=== PATIENT | female | born 1950 | race Caucasian/White ===

== ENCOUNTER 2019-03-24 13:44 | Outpatient (CLI) | payer MEDICARE, SELFPAY ==
[2019-03-24 14:57] LABS: Basophils Percent Auto 0.7 % (0.2-1.2); Eosinophils Absolute Auto 0.2 K/mm3 (0-0.3); Eosinophils Percent Auto 3.6 % (0-4.4); Hematocrit 38.5 % (37.0-47.0); Immature Granulocyte Absolute 0.01 K/mm3 (0.00-0.031); Immature Granulocyte Percent A 0.2 % (0-0.5); Lymphocytes Absolute Auto 1.41 K/mm3 (0.9-3.2); Lymphocytes Percent Auto 25.5 % (18.3-44.2); Mean Corpuscular HGB Conc 33.8 g/dl (32-36); Mean Corpuscular Hemoglobin 31.1 pg (26-34); Mean Corpuscular Volume 92.1 fl (80-100); Mean Platelet Volume 8.8 fl (7.4-10.4); Monocytes Absolute Auto 0.3 K/mm3 (0.1-0.6); Monocytes Percent Auto 5.6 % (2.6-8.5); Neutrophils Absolute Auto 3.6 K/mm3 (1.3-6.7); Neutrophils Percent Auto 64.4 % (45.5-73.1); Platelet Count Result 286 k/mm3 (150-375); Red Blood Count 4.18 M/mm3 (4.2-5.4); Red Cell Distribution Width 13.4 % (11.5-14.5); White Blood Count 5.5 K/mm3 (4.5-10.0)
[2019-03-24 15:09] LABS: Alanine Aminotransferase 17 U/L (4-35); Albumin Level 4.4 g/dL (3.5-5.1); Alkaline Phosphatase 68 U/L (38-126); Aspartate Amino Transferase 27 U/L (14-36); Bilirubin,Total 0.5 mg/dL (0.2-1.3); Blood Urea Nitrogen 7 mg/dL (7-17); Calcium 10.3 mg/dL (8.4-10.2); Carbon Dioxide 22 mmol/L (22-30); Chloride 95 mmol/L (98-107); Estimated Glomerular Filt Rate > 60; Glucose 96 mg/dL (65-105); Sodium 131 mmol/L (137-145)
[2019-03-24 15:10] LABS: Cholesterol 260 mg/dL (0-200); HDL Direct 57 mg/dL; Triglycerides 168 mg/dL (<150)
[2019-03-24 15:20] LABS: LDL Cholesterol Direct 154 mg/dL
== END 2019-03-24 13:45 | disposition home or self-care (01) ==
PROVIDERS: PCP Internal Medicine; Visit Provider Nurse Practitioner
DX: I10 Essential (primary) hypertension (principal)
CPT/HCPCS: 36415; 80053; 80061; 85025

== ENCOUNTER 2019-04-17 14:38 | Outpatient (CLI) | payer MEDICARE, SELFPAY ==
--- NOTE | ~2019-04-17 | MM_ITS ---
EXAMINATION: MM screening [facility] BI w michelle HISTORY: Screening mammogram, history of left breast cancer TECHNIQUE: Craniocaudal and mediolateral oblique 3-D tomosynthesis images were obtained and synthetic 2-D images were generated. CAD analysis was submitted and interpreted. COMPARISON: 10/25/2016, 02/07/2016, 02/01/2015 BREAST PARENCHYMAL COMPOSITION: The breasts are almost entirely fatty. FINDINGS: There is stable architectural distortion in the upper outer quadrant of the left breast at the site of prior lumpectomy. There is no evidence of suspicious mass, calcification, or architectura l distortion to suggest malignancy in either breast. There has been no suspicious interval change. IMPRESSION: 1. No mammographic evidence of malignancy. 2. Recommend routine screening mammography in one year. BI-RADS Category 2: Benign finding(s). Reviewed, dictated and finalized at location A. ER MILL ROLLER
--- NOTE | ~2019-04-17 | DEXA_ITS ---
Bone Density Report Name: Francia Poon Age: 69 Sex: Female Ethnicity: White Date of : 1950 Indication: postmenopausal; prior fracture; cancer; Referring Provider: Yesi Navarro Study: Bone densitometry was performed. Exam Date: April 17, 2019 Accession number: [id number] Bone Density: Region BMD T-score Z-score Classification AP Spine (L1-L4) 0.965 -0.7 1.3 Normal Femoral Neck (Left) 0.560 -2.6 -0.9 Osteoporosis Total Hip (Left) 0.899 -0.4 1.1 Normal Total Hip Bilateral Avg 0.906 -0.3 1.2 Normal Femoral Neck (Right) 0.669 -1.6 0.1 Osteopenia Total Hip (Right) 0.913 -0.2 1.2 Normal World Health Organization criteria for BMD impression classify patients as: Normal (T-score at or above -1.0), Osteopenia (T-score between -1.0 and -2.5), or Osteoporosis (T-score at or below -2.5). 10-year Fracture Risk: FRAX not reported because: Some T-score for Spine Total or Hip Total or Femoral Neck at or below -2.5 Previous Exams: Region Exam Age BMD T-score BMD Change BMD Change Date g/cm2 vs Baseline vs Previous AP Spine(L1-L4) 04/17/2019 69 0.965 -0.7 -0.115(-10.6%) -0.115(-10.6%) 01/20/2009 59 1.080 0.3 Total Hip(Left) 04/17/2019 69 0.899 -0.4 -0.101(-10.1%) -0.101(-10.1%) 01/20/2009 59 1.000 0.5 Total Hip(Right) 04/17/2019 69 0.913 -0.2 -0.014(-1.5%)# -0.014(-1.5%)# 01/20/2009 59 0.927 -0.1 *Denotes significance at 95% confidence level, LSC for AP Spine = 0.022 g/cm2, LSC for Total Hip = 0.027 g/cm2 Clinical Information Provided by Patient: Has had a low trauma fracture Has the following medical conditions: Cancer Patient maximum height was 64 Menopause Age: 51 No regular weight bearing exercise Onset of menses at age 13 Number of children 1 Impression: The patient has established osteoporosis, based on the Left Femoral Neck T-score and the existence of a prior fracture. The patient has risk factors, including: previous fracture. No significant bone loss was observed. Discussion: HIGH RISK OF FRACTURE. BONE DENSITY IS UNDESIRABLY LOW AT ONE OR MORE SKELETAL SITES, CONSISTENT WITH POSTMENOPAUSAL OSTEOPOROSIS. This patient's lowest T-score, in a patient who has previously fractured, meets the World Health Organization's (WHO) criteria for severe osteoporosis. In untreated patients, the risk of osteoporotic fracture increases approximately two-fold for each 1.0 SD decrease in T-score. Low bone density is not the only risk factor
== END 2019-04-17 14:39 | disposition home or self-care (01) ==
LOC: ANHIMG 14:50
PROVIDERS: PCP Internal Medicine; Visit Provider Nurse Practitioner
DX: Z12.31 Encounter for screening mammogram for malignant neoplasm of breast (principal); Z78.0 Asymptomatic menopausal state; M81.0 Age-related osteoporosis without current pathological fracture; M85.851 Other specified disorders of bone density and structure, right thigh
CPT/HCPCS: 77063; 77067; 77080

== ENCOUNTER 2019-05-26 13:47 | Outpatient (CLI) | payer MEDICARE, SELFPAY ==
[2019-05-26 15:01] LABS: Blood Urea Nitrogen 11 mg/dL (7-17); Calcium 9.6 mg/dL (8.4-10.2); Carbon Dioxide 26 mmol/L (22-30); Chloride 102 mmol/L (98-107); Cholesterol 177 mg/dL (0-200); Estimated Glomerular Filt Rate > 60; Glucose 87 mg/dL (65-105); HDL Direct 55 mg/dL; Potassium 4.1 mmol/L (3.4-5.0); Sodium 137 mmol/L (137-145); Triglycerides 171 mg/dL (<150)
[2019-05-26 15:22] LABS: LDL Cholesterol Direct 83 mg/dL
[2019-05-26 16:05] LABS: Vitamin D 25 Hydroxy 22.2 ng/mL
== END 2019-05-26 13:48 | disposition home or self-care (01) ==
PROVIDERS: PCP Internal Medicine; Visit Provider Nurse Practitioner
DX: M81.0 Age-related osteoporosis without current pathological fracture (principal); E87.1 Hypo-osmolality and hyponatremia; E78.5 Hyperlipidemia, unspecified
CPT/HCPCS: 36415; 80048; 80061; 82306

== ENCOUNTER 2019-11-04 00:40 | Outpatient (CLI) | payer MEDICARE, SELFPAY ==
[2019-11-04 18:54] LABS: SARS-CoV-2 RNA PCR Negative
== END 2019-11-04 00:41 | disposition home or self-care (01) ==
LOC: ANHCOVIDDT 00:44
PROVIDERS: PCP Internal Medicine; Visit Provider Internal Medicine Gastroenterology
DX: Z01.812 Encounter for preprocedural laboratory examination (principal); Z20.828 Contact with and (suspected) exposure to other viral communicable diseases
CPT/HCPCS: 87635; C9803; U0003

== ENCOUNTER 2019-11-06 00:57 | Day surgery (SDC) | payer MEDICARE, SELFPAY ==
[2019-10-28 15:09] VITALS: BMI 43.1
[2019-11-06 07:54] VITALS: BP 130/89; PULSE 90; RESP 16; TEMP 36.6; O2SAT 97; BMI 44.4
[2019-11-06] MEDS: LACTATED RINGERS 1,000 ML 150 ML IV CONT (08:13)
--- NOTE | 2019-11-06 08:28 | PM.IMHP ---
H&P: HPI History of Present Illness Date/Time: 11/06/19 08:28 Chief complaint: GERD Narrative: Reason for visit EGD. This very pleasant lady seen in consultation request of the primary physician. Impression: Your ever pleasant lady with a history of duodenal ulcer disease and gastric ulcer disease. She has had persistent abdominal pain. Recurrent ulcer disease needs to be excluded. For past medical history. Recommendation: EGD. History: This very pleasant lady's being evaluated for an EGD. Patient has a history of gastric ulcer and duodenal ulcer disease. She continues this upper abdominal pain. She describes hurting type pain. No radiation of the pain occurs. The pain is unaffected by eating or defecation. Nausea, vomiting and hematemesis are denied. She denies any hematochezia, melena or acholic stools. She does report occasional constipation and takes laxatives once every other week. Patient is here for an EGD. She does admit to taking a headache medication with aspirin at at least every other day. Physical examination: General: very pleasant patient in no acute distress. HEENT: Head was normocephalic sclerae is clear mouth without masses neck was supple. Heart: Rate rhythm regular without S3 or S4. Lungs: CTA. Abdomen: Soft with no guarding or rigidity. Bowel sounds were active. Neurologic: Cranial nerves 2 through 12 intact. No focal defects. No clonus. Musculoskeletal system: Revealed no joint tenderness or swelling no muscle atrophy. Extremities: Reveal no significant edema. Skin: Warm and dry with normal turgor. Mental status: intact. Patient is alert and oriented. Review of Systems Review of Systems: All systems reviewed & are unremarkable except as noted in HPI and below [facility] Past Medical History Medical History (Updated 11/06/19 @ 08:17 by Vikash Fisher DO) Breast cancer Cataract Chicken pox Depression with anxiety Duodenal ulcer Gastric ulcer Herniated disc HLD (hyperlipidemia) Lymphedema Measles Neuropathy Obesity Osteoarthritis Tendonitis Surgical History Surgical History (Updated 03/31/19 @ 14:33 by Cayla Santana CMA) H/O adenoidectomy History of salpingo-oophorectomy Hx of cholecystectomy Hx of lumpectomy lt breast and lymph nodes Hx of tonsillectomy Family History Family History (Updated 03/31/19 @ 10:59 by Cayla N. Deien, BAND LINING BANDER) Father Acute myocardial infarction Sibling Patient's brother is in good health Sibling Breast cancer Mother Myocardial infarction Other Family history of hypercholesterolemia Social History Social History Smoking status: Never smoker Alcohol intake: never Meds Home Medications and Allergies Home Medications Medication Instructions Recorded Confirmed Type omeprazole 40 mg capsule,delayed 40 mg PO DAILY 03/31/19 10/28/19 History release alendronate 70 mg tablet 70 mg PO WEEKLY #12 tablet 04/30/19 10/28/19 Rx atorvastatin 20 mg tablet 20 mg PO DAILY #90 tablet 08/25/19 10/28/19 Rx fexofenadine 180 mg tablet 180 mg PO DAILY 08/25/19 10/28/19 History fluticasone propionate 50 2 spray NASAL BID ml 08/25/19 10/28/19 History mcg/actuation nasal spray,suspension sucralfate 1 gram tablet 1 gm PO TID #90 tablet 08/27/19 10/28/19 Rx alprazolam 1 mg PO TID 10/28/19 10/28/19 History cholecalciferol (vitamin D3) 50 mcg PO DAILY 10/28/19 10/28/19 History [Vitamin D3] duloxetine 60 mg PO DAILY 10/28/19 10/28/19 History lisinopril 40 mg PO DAILY 10/28/19 10/28/19 History quetiapine 200 mg PO HS 10/28/19 10/28/19 History trazodone 300 mg PO HS 10/28/19 10/28/19 History gabapentin 300 mg capsule 600 mg PO TID #180 cap 11/04/19 Rx Allergies Allergy/AdvReac Type Severity Reaction Status Date / Time latex Allergy Unknown Other Verified 11/06/19 07:52 midazolam Allergy Unknown Swelling Verified 11/06/19 07:52 of the Eye Vital Signs Vital Signs - 24 hr 11/06/19
--- NOTE | 2019-11-06 08:42 | WPDANESEPPF ---
Anes - Initial Pre Proc Eval Procedure: Operation Date: 11/06/19 08:30 Proposed Procedures p Esophagogastroduodenoscopy - Vikash Fisher DO Date/Time: 11/06/19 08:42 Surgeon: Vikash Fisher DO Pre Op Diagnosis: GERD Patient Data Age: 69 Gender: F Height: 5 ft 4 in Weight: 117.5 kg Last Vital Signs Temp 97.9 F 11/06/19 07:54 Pulse 90 11/06/19 07:54 Resp 16 11/06/19 07:54 BP 130/89 11/06/19 07:54 Pulse Ox 97 11/06/19 07:54 Allergies Allergy/AdvReac Type Severity Reaction Status Date / Time latex Allergy Unknown Other Verified 11/06/19 07:52 midazolam Allergy Unknown Swelling Verified 11/06/19 07:52 of the Eye Home Medications Medication Instructions Recorded Confirmed Type omeprazole 40 mg capsule,delayed 40 mg PO DAILY 03/31/19 10/28/19 History release alendronate 70 mg tablet 70 mg PO WEEKLY #12 tablet 04/30/19 10/28/19 Rx atorvastatin 20 mg tablet 20 mg PO DAILY #90 tablet 08/25/19 10/28/19 Rx fexofenadine 180 mg tablet 180 mg PO DAILY 08/25/19 10/28/19 History fluticasone propionate 50 2 spray NASAL BID ml 08/25/19 10/28/19 History mcg/actuation nasal spray,suspension sucralfate 1 gram tablet 1 gm PO TID #90 tablet 08/27/19 10/28/19 Rx alprazolam 1 mg PO TID 10/28/19 10/28/19 History cholecalciferol (vitamin D3) 50 mcg PO DAILY 10/28/19 10/28/19 History [Vitamin D3] duloxetine 60 mg PO DAILY 10/28/19 10/28/19 History lisinopril 40 mg PO DAILY 10/28/19 10/28/19 History quetiapine 200 mg PO HS 10/28/19 10/28/19 History trazodone 300 mg PO HS 10/28/19 10/28/19 History gabapentin 300 mg capsule 600 mg PO TID #180 cap 11/04/19 Rx Patient hx anesthesia problems: none Family hx anesthesia problems: none PMFSH Past Medical History Medical History (Updated 11/06/19 @ 08:17 by Vikash Fisher DO) Breast cancer Cataract Chicken pox Depression with anxiety Duodenal ulcer Gastric ulcer Herniated disc HLD (hyperlipidemia) Lymphedema Measles Neuropathy Obesity Osteoarthritis Tendonitis Surgical History Surgical History (Updated 03/31/19 @ 14:33 by Cayla Santana [facility]) H/O adenoidectomy History of salpingo-oophorectomy Hx of cholecystectomy Hx of lumpectomy lt breast and lymph nodes Hx of tonsillectomy Family History Family History (Updated 03/31/19 @ 10:59 by Cayla Santana [facility]) Father Acute myocardial infarction Sibling Patient's brother is in good health Sibling Breast cancer Mother Myocardial infarction Other Family history of hypercholesterolemia Social History Social History Smoking status: Never smoker Alcohol intake: never Anes - Eval Final PreProcedure Day of Procedure 11/06/19 08:42 Patient weight: morbidly obese Heart: regular rate and rhythm Lungs: clear to auscultation Airway: Mallampati scale class III Neurological: alert and oriented Last oral intake: >/= 8 hours ASA classification: IV Emergent: no Anesthetic plan: proceed Anesthesia type and monitoring: general GIVS and standard monitoring Informed Consent: The patient's anesthetic plan and its attendant risks and benefits were discussed with the patient/family/POA. Questions were solicited and answers provided to the satisfaction of the patient/family/POA.
[2019-11-06] MEDS: BENZOCAINE (*SP) 60 ML SPRAY CAN (HURRICAINE) 1 SPRAY MUCOUS MEM (08:50)
[2019-11-06 09:04] VITALS: BP 101/56; PULSE 92; RESP 16; O2SAT 95
[2019-11-06 09:14] VITALS: BP 81/46; PULSE 80; RESP 16; O2SAT 98
[2019-11-06 09:24] VITALS: BP 105/50; PULSE 88; RESP 16; O2SAT 96
== END 2019-11-06 09:36 | disposition home or self-care (01) ==
PROVIDERS: PCP Internal Medicine; Visit Provider Internal Medicine Gastroenterology
PROC: 0DJ08ZZ Inspection of Upper Intestinal Tract, Via Natural or Artificial Opening Endoscopic (ICD-10-PCS; CPT 43235; principal; 2019-11-06 08:30)
DX: K29.50 Unspecified chronic gastritis without bleeding (principal); Z87.11 Personal history of peptic ulcer disease; E78.5 Hyperlipidemia, unspecified; G62.9 Polyneuropathy, unspecified; F41.8 Other specified anxiety disorders; E66.01 Morbid (severe) obesity due to excess calories; Z68.41 Body mass index [BMI] 40.0-44.9, adult
CPT/HCPCS: 43239; 87081; 88305; J2704; J7120

== ENCOUNTER 2019-11-19 14:42 | Outpatient (CLI) | payer MEDICARE, SELFPAY ==
[2019-11-19 15:53] LABS: Cholesterol 169 mg/dL (0-200); HDL Direct 52 mg/dL; Triglycerides 148 mg/dL (<150)
[2019-11-19 16:04] LABS: LDL Cholesterol Direct 83 mg/dL
[2019-11-19 16:48] LABS: Vitamin D 25 Hydroxy 32.9 ng/mL
== END 2019-11-19 14:43 | disposition home or self-care (01) ==
PROVIDERS: PCP Internal Medicine; Visit Provider Clinical Nurse Specialist
DX: E78.5 Hyperlipidemia, unspecified (principal); E55.9 Vitamin D deficiency, unspecified
CPT/HCPCS: 36415; 80061; 82306

== ENCOUNTER 2019-12-01 14:38 | Outpatient (CLI) | payer MEDICARE, SELFPAY ==
--- NOTE | ~2019-12-01 | CT_ITS ---
EXAMINATION: CT abdomen pelvis w con DATE: 12/01/2019 15:35 INDICATION: Epigastric abdominal pain. TECHNIQUE: Computed tomography (CT) of the abdomen and pelvis was performed with 100 mL Omnipaque 350 intravenous contrast. Automated exposure control and iterative reconstruction technique were employe d. The dose-length product was 1493.11 mGy-cm. COMPARISON: CT abdomen and pelvis 01/21/2018 FINDINGS: The visualized portions of the lung bases demonstrate minimal atelectasis. No pleural effus ion. The heart size is normal. No pericardial effusion. There is a small sliding hiatal hernia. The l iver and spleen are normal. There are changes of cholecystectomy. The pancreas, adrenal glands, and k idneys are normal. There are no dilated loops of bowel. The appendix is not visualized. There are no pathologically enlarged lymph nodes. There is no free intraperitoneal fluid. Pelvic floor relaxation is noted. There is moderate thoracic spondylosis and mild lumbar spondylosis. IMPRESSION: 1. Small sliding hiatal hernia. 2. Pelvic floor relaxation. Reviewed, dictated and finalized at location A.
[2019-12-01 15:22] LABS: Estimated Glomerular Filt Rate 49
== END 2019-12-01 14:39 | disposition home or self-care (01) ==
PROVIDERS: PCP Internal Medicine; Visit Provider Internal Medicine Gastroenterology
DX: R10.13 Epigastric pain (principal); K44.9 Diaphragmatic hernia without obstruction or gangrene; N81.89 Other female genital prolapse
CPT/HCPCS: 74177; Q9967

== ENCOUNTER 2020-01-15 13:12 | Outpatient (CLI) | payer MEDICARE, SELFPAY ==
--- NOTE | ~2020-01-15 | MM_ITS ---
EXAMINATION: MM diagnostic griselda LT w michelle HISTORY: Pain of the inner left breast, history of breast cancer and lumpectomy in the upper outer qu adrant of the breast TECHNIQUE: Craniocaudal, mediolateral, and mediolateral oblique 3-D tomosynthesis images of the left breast were performed and synthetic 2-D images were generated. CAD analysis was submitted and interpr eted. COMPARISON: 04/17/2019,02/07/2016, 02/01/2015, 03/03/2014, 02/18/2013 BREAST PARENCHYMAL COMPOSITION: The breasts are almost entirely fatty. FINDINGS: There are stable lumpectomy changes in the upper outer quadrant of the breast. No suspiciou s mass, calcification, or architectural distortion are identified. There has been no significant inte rval change. No mammographic correlate is identified for the patient's reported medial breast pain. IMPRESSION: 1. No specific mammographic correlate is identified for the patient's reported breast pain. Further e valuation at this time should be based on clinical assessment. Continued follow-up physical examinati on is recommended. 2. Routine screening mammography is recommended. BI-RADS Category 2: Benign finding(s). Reviewed, dictated and finalized at location A. IMPRESSION: 1. No specific mammographic correlate is identified for the patient's reported breast pain. Further evaluation at this time should be based on clinical assess ment. Continued follow-up physical examination is recommended. 2. Routine screening mammography is recommended. BI-RADS Category 2: Benign finding(s).
== END 2020-01-15 13:13 | disposition home or self-care (01) ==
LOC: ANHIMG 13:14
PROVIDERS: PCP Internal Medicine; Visit Provider Obstetrics & Gynecology
DX: N64.4 Mastodynia (principal); Z85.3 Personal history of malignant neoplasm of breast
CPT/HCPCS: 77061; 77065; G0279

== ENCOUNTER 2020-05-06 14:09 | Outpatient (CLI) | payer MEDICARE, SELFPAY ==
[2020-05-06 14:50] LABS: Basophils Absolute Auto 0.1 K/mm3 (0.0-0.1); Basophils Percent Auto 0.8 % (0.2-1.2); Eosinophils Absolute Auto 0.3 K/mm3 (0-0.3); Eosinophils Percent Auto 4.1 % (0-4.4); Hematocrit 36.4 % (37.0-47.0); Hemoglobin 11.8 g/dL (12.0-15.0); Immature Granulocyte Absolute 0.02 K/mm3 (0.00-0.031); Immature Granulocyte Percent A 0.3 % (0-0.5); Lymphocytes Absolute Auto 2.22 K/mm3 (0.9-3.2); Lymphocytes Percent Auto 33.8 % (18.3-44.2); Mean Corpuscular HGB Conc 32.4 g/dl (32-36); Mean Corpuscular Hemoglobin 29.9 pg (26-34); Mean Corpuscular Volume 92.2 fl (80-100); Mean Platelet Volume 8.7 fl (7.4-10.4); Monocytes Absolute Auto 0.4 K/mm3 (0.1-0.6); Monocytes Percent Auto 6.1 % (2.6-8.5); Neutrophils Absolute Auto 3.6 K/mm3 (1.3-6.7); Neutrophils Percent Auto 54.9 % (45.5-73.1); Platelet Count Result 269 k/mm3 (150-375); Red Blood Count 3.95 M/mm3 (4.2-5.4); Red Cell Distribution Width 13.9 % (11.5-14.5); White Blood Count 6.6 K/mm3 (4.5-10.0)
[2020-05-06 14:56] LABS: Alanine Aminotransferase 18 U/L (4-35); Alkaline Phosphatase 78 U/L (38-126); Anion Gap 8 mmol/L (8-16); Aspartate Amino Transferase 25 U/L (14-36); Bilirubin,Total 0.2 mg/dL (0.2-1.3); Blood Urea Nitrogen 13 mg/dL (7-17); Calcium 9.7 mg/dL (8.4-10.2); Carbon Dioxide 29 mmol/L (22-30); Chloride 103 mmol/L (98-107); Estimated Glomerular Filt Rate 44; Glucose 108 mg/dL (65-105); Potassium 4.3 mmol/L (3.4-5.0); Sodium 140 mmol/L (137-145)
== END 2020-05-06 14:10 | disposition home or self-care (01) ==
LOC: ANHLAB 14:11
PROVIDERS: PCP Internal Medicine; Visit Provider Clinical Nurse Specialist
DX: I10 Essential (primary) hypertension (principal)
CPT/HCPCS: 36415; 80053; 85025

== ENCOUNTER 2020-09-30 13:14 | Emergency (ER) | payer MEDICARE, SELFPAY ==
[2020-09-30 13:22] VITALS: BP 149/94; PULSE 110; RESP 16; TEMP 36.2; O2SAT 96
[2020-09-30 13:28] VITALS: BP 149/94; PULSE 110; RESP 16; TEMP 36.2; O2SAT 96
--- NOTE | 2020-09-30 13:41 | ED.GENADULT ---
HPI - General Adult General Chief complaint: Wound/Laceration Stated complaint: rt foot big toe laceration Time Seen by Provider: 09/30/20 13:30 Source: patient and RN notes reviewed Mode of arrival: ambulatory Limitations: no limitations History of Present Illness HPI narrative: HPI narrative: 70-year-old female present with complaints of laceration to the right great toe, caused by hitting toe on vanity in bathroom for the past 7 hours. Francia reports being in the bathroom when she hit her toe against the vanity causing laceration to the right great toe. Applied pressure to the right great toe once the spouse noted bleeding. Denies focal weakness, altered sensation. Denies fever. Denies pain, numbness or tingling, or loss of mobility. No foreign body sensation. Tetanus not up-to-date, will update today. Remains active. The patient reports she has not been diagnosed with COVID-19. The patient reports she received 2 Pfizer COVID-19 vaccines. The patient reports she is not waiting for the results of a COVID-19 lab test. The patient reports she does not have fever, chills, weakness, fatigue, or myalgia. The patient reports she does not have a new or worsening cough or shortness of breath. The patient reports she does not have any rhinorrhea, congestion, loss of taste, sore throat, nausea, vomiting, abdominal pain, and diarrhea. Denies recent traveling. Denies concerns for COVID-19 or exposures. At this time, the patient is not suspected of having COVID-19. Some parts of this dictation were generated by voice recognition software and may contain typographical and/or grammatical inaccuracies Related Data Home Medications Medication Instructions Recorded Confirmed omeprazole 40 mg capsule,delayed 40 mg PO DAILY 03/31/19 09/30/20 release fexofenadine 180 mg tablet 180 mg PO DAILY 08/25/19 09/30/20 fluticasone propionate 50 2 spray NASAL BID ml 08/25/19 09/30/20 mcg/actuation nasal spray,suspension alprazolam 1 mg PO TID 10/28/19 09/30/20 cholecalciferol (vitamin D3) 50 mcg PO DAILY 10/28/19 09/30/20 [Vitamin D3] duloxetine 60 mg PO DAILY 10/28/19 09/30/20 trazodone 300 mg PO HS 10/28/19 09/30/20 mirabegron 50 mg tablet,extended 50 mg PO DAILY 03/26/20 09/30/20 release 24 hr quetiapine 200 mg tablet 400 mg PO HS tablet 03/26/20 09/30/20 oxybutynin chloride 5 mg tablet 5 mg PO BID 05/13/20 09/30/20 Allergies Allergy/AdvReac Type Severity Reaction Status Date / Time midazolam Allergy Unknown Swelling Verified 09/30/20 13:24 of the Eye Review of Systems Review of Systems: Narrative: CONSTITUTIONAL: Denies fever, chills, sweats. EYES: Denies visual changes, redness, discharge. ENT: Denies rhinorrhea, congestion, sore throat, otalgia. CARDIOVASCULAR: Denies chest pain, palpitations, edema. RESPIRATORY: Denies dyspnea, wheezing, cough. GASTROINTESTINAL: Denies abdominal pain, nausea, vomiting, or diarrhea. SKIN: Denies rash or itching. Complaints of laceration to the right great toe. MUSCULOSKELETAL: Denies acute back pain, joint pain, or myalgia. NEUROLOGIC: Denies numbness or focal weakness. PSYCHIATRIC: Denies anxiety or depression. All systems reviewed & are unremarkable except as noted in HPI and below. [facility] Past Medical History Medical History (Updated 10/01/20 @ 00:00 by Khadar Brooke) Breast cancer Cataract Chicken pox Depression with anxiety Duodenal ulcer Gastric ulcer Herniated disc HLD (hyperlipidemia) Lymphedema Measles Neuropathy Obesity Osteoarthritis Tendonitis Surgical History Surgical History H/O adenoidectomy History of salpingo-oophorectomy Hx of cholecystectomy Hx of lumpectomy lt breast and lymph nodes Hx of tonsillectomy Family History Family History Father Acute myocardial infarction Sibling Patient's brother is in good health
[2020-09-30 14:03] VITALS: BP 152/85; PULSE 109
[2020-09-30] MEDS: TETANUS,DIPHTHERIA,AC PERTUSSIS ADULT (0.5 ML) BOOSTRIX IM (14:28)
== END 2020-09-30 14:50 | disposition home or self-care (01) ==
PROVIDERS: Emergency Provider Nurse Practitioner Family; PCP Internal Medicine
DX: S91.111A Laceration without foreign body of right great toe without damage to nail, initial encounter (principal); W22.8XXA Striking against or struck by other objects, initial encounter; Z23 Encounter for immunization; Z85.3 Personal history of malignant neoplasm of breast; E78.5 Hyperlipidemia, unspecified; G62.9 Polyneuropathy, unspecified; M19.90 Unspecified osteoarthritis, unspecified site; H26.9 Unspecified cataract; F41.8 Other specified anxiety disorders
CPT/HCPCS: 90471; 90715; 99212; G0463

== ENCOUNTER 2020-11-05 12:50 | Outpatient (CLI) | payer MEDICARE, SELFPAY ==
--- NOTE | ~2020-11-05 | MR_ITS ---
EXAMINATION: MR brain/brain stem wo/w con DATE: 11/05/2020 14:29 INDICATION: Migraine headache without aura, not intractable, without status migrainosus. TECHNIQUE: Magnetic resonance imaging (MRI) of the brain and brainstem was performed without and with 20 mL MultiHance intravenous contrast. Sequences included sagittal and axial T1-weighted FSE, axial diffusion-weighted FS EPI, axial T2*-weighted GRE, axial T2-weighted FLAIR Propeller, and axial T2-we ighted Propeller. Postcontrast sequences included axial and coronal T1-weighted FSE. Apparent diffusi on coefficient (ADC) maps were created. COMPARISON: None. FINDINGS: There are scattered areas of nonspecific increased T2-weighted signal intensity in the cere bral white matter, which is within normal limits for the patient's age. There is no intracranial hemo rrhage, acute infarction, or abnormal intracranial mass lesion. The ventricles are normal in size. Th e paranasal sinuses are clear. There are likely changes of ocular lens replacement surgeries. There i s a trace left mastoid effusion. IMPRESSION: 1. Normal aging brain. Reviewed, dictated and finalized at location B. IMPRESSION: 1. Normal aging brain.
[2020-11-05 14:00] LABS: Estimated Glomerular Filt Rate 49
== END 2020-11-05 12:51 | disposition home or self-care (01) ==
PROVIDERS: PCP Internal Medicine; Visit Provider Clinical Nurse Specialist
DX: G43.009 Migraine without aura, not intractable, without status migrainosus (principal)
CPT/HCPCS: 70553; A9577

== ENCOUNTER 2020-11-24 11:28 | Outpatient (CLI) | payer MEDICARE, SELFPAY ==
[2020-11-24 11:59] LABS: Basophils Percent Auto 0.7 % (0.2-1.2); Eosinophils Absolute Auto 0.2 K/mm3 (0-0.3); Eosinophils Percent Auto 3.6 % (0-4.4); Hematocrit 38.9 % (37.0-47.0); Hemoglobin 12.5 g/dL (12.0-15.0); Immature Granulocyte Absolute 0.02 K/mm3 (0.00-0.031); Immature Granulocyte Percent A 0.3 % (0-0.5); Lymphocytes Absolute Auto 1.62 K/mm3 (0.9-3.2); Lymphocytes Percent Auto 26.8 % (18.3-44.2); Mean Corpuscular HGB Conc 32.1 g/dl (32-36); Mean Corpuscular Hemoglobin 30.4 pg (26-34); Mean Corpuscular Volume 94.6 fl (80-100); Mean Platelet Volume 8.7 fl (7.4-10.4); Monocytes Absolute Auto 0.3 K/mm3 (0.1-0.6); Monocytes Percent Auto 5.3 % (2.6-8.5); Neutrophils Absolute Auto 3.8 K/mm3 (1.3-6.7); Neutrophils Percent Auto 63.3 % (45.5-73.1); Platelet Count Result 281 k/mm3 (150-375); Red Blood Count 4.11 M/mm3 (4.2-5.4); Red Cell Distribution Width 13.9 % (11.5-14.5); White Blood Count 6.1 K/mm3 (4.5-10.0)
[2020-11-24 12:12] LABS: Alanine Aminotransferase 17 U/L (4-35); Albumin Level 4.4 g/dL (3.5-5.1); Alkaline Phosphatase 75 U/L (38-126); Anion Gap 9 mmol/L (8-16); Aspartate Amino Transferase 26 U/L (14-36); Bilirubin,Total 0.3 mg/dL (0.2-1.3); Blood Urea Nitrogen 12 mg/dL (7-17); Calcium 10.1 mg/dL (8.4-10.2); Carbon Dioxide 25 mmol/L (22-30); Chloride 104 mmol/L (98-107); Cholesterol 177 mg/dL (0-200); Estimated Glomerular Filt Rate 49; Glucose 104 mg/dL (65-110); HDL Direct 55 mg/dL; Potassium 4.3 mmol/L (3.4-5.0); Sodium 138 mmol/L (137-145); Triglycerides 143 mg/dL (<150)
[2020-11-24 12:23] LABS: LDL Cholesterol Direct 77 mg/dL
== END 2020-11-24 11:29 | disposition home or self-care (01) ==
LOC: ANHLAB 11:29
PROVIDERS: PCP Internal Medicine; Visit Provider Clinical Nurse Specialist
DX: I10 Essential (primary) hypertension (principal); E78.2 Mixed hyperlipidemia
CPT/HCPCS: 36415; 80053; 80061; 85025

== ENCOUNTER 2021-01-18 14:23 | Outpatient (CLI) | payer MEDICARE, SELFPAY ==
--- NOTE | ~2021-01-18 | MM_ITS ---
EXAMINATION: MM screening griselda BI w michelle HISTORY: Screening TECHNIQUE: Craniocaudal and mediolateral oblique 3-D tomosynthesis images were obtained and synthetic 2-D images were generated. CAD analysis was submitted and interpreted. COMPARISON: Comparison to multiple prior studies sequentially, with oldest reviewed study dated 01/18. BREAST PARENCHYMAL COMPOSITION: FINDINGS: There is developing asymmetry in the upper outer quadrant of the right breast. The left nahomy ast is stable without evidence for malignancy. IMPRESSION: 1. Developing right breast asymmetry. 2. Additional mammographic views and possible breast ultrasound are recommended. BI-RADS Category 0: Incomplete: Needs additional imaging evaluation. Reviewed, dictated and finalized at location A. IMPRESSION: 1. Developing right breast asymmetry. 2. Additional mammographic views and possible breast ultrasound are recommended . BI-RADS Category 0: Incomplete: Needs additional imaging evaluation.
== END 2021-01-18 14:24 | disposition home or self-care (01) ==
PROVIDERS: PCP Internal Medicine; Visit Provider Obstetrics & Gynecology
DX: Z12.31 Encounter for screening mammogram for malignant neoplasm of breast (principal); R92.8 Other abnormal and inconclusive findings on diagnostic imaging of breast
CPT/HCPCS: 77063; 77067

== ENCOUNTER 2021-02-12 12:36 | Outpatient (CLI) | payer MEDICARE, SELFPAY ==
--- NOTE | ~2021-02-12 | MR_ITS ---
EXAMINATION: MR lumbar spine wo con EXAM DATE: 02/12/2021 13:43 INDICATION: Lumbar radiculopathy . Chronic low back pain. Bilateral leg numbness. TECHNIQUE: Multi-sequential, multiplanar MR images of the lumbar spine were obtained without contrast . Sagittal T1, T2, T2 fat saturation images. Axial T2 weighted images. Comparison is made to prior examination from 06/04/2018. FINDINGS: There is 3 mm anterolisthesis L4 on L5. The vertebral bodies are otherwise aligned. The con us medullaris terminates at the L1/2 level and has normal signal intensity and morphology. There is moderate disc disease L3-4, mild to moderate at the levels below. There is mild compression fracture of L4, new or progressed compared to previous examination, may have an acute or subacute component gi nick mild edema. Paraspinal soft tissue is unremarkable. Level by level evaluation: T12-L1: Disc does not extend beyond the endplate margin. Facet arthropathy: Mild. Neural foraminal stenosis: No stenosis. Central canal stenosis: No stenosis. L1-L2: There is a minimal diffuse disc bulge. Facet arthropathy: Mild. Neural foraminal stenosis: No stenosis. Central canal stenosis: No stenosis. L2-L3: There is a minimal diffuse disc bulge. Facet arthropathy: Mild. Neural foraminal stenosis: No stenosis. Central canal stenosis: No stenosis. L3-L4: There is a mild diffuse disc bulge. Facet arthropathy: Mild to moderate. Neural foraminal stenosis: Mild to moderate left, mild right. Central canal stenosis: Mild. L4-L5: There is a moderate diffuse disc bulge. Facet arthropathy: Severe. Neural foraminal stenosis: Mild to moderate left, mild right. Central canal stenosis: Mild. L5-S1: There is a mild to moderate diffuse disc bulge asymmetric to the left Facet arthropathy: Moderate. Neural foraminal stenosis: Mild right. Central canal stenosis: Mild. IMPRESSION: 1. L4-5 severe facet arthropathy. 2. Mild to moderate mid lumbar neural foraminal stenosis. Reviewed, dictated and finalized at location A. ENING SPECIALIST
== END 2021-02-12 12:37 | disposition home or self-care (01) ==
PROVIDERS: PCP Internal Medicine; Visit Provider Nurse Practitioner Adult Health
DX: M54.16 Radiculopathy, lumbar region (principal)
CPT/HCPCS: 72148

== ENCOUNTER 2021-02-24 13:24 | Outpatient (CLI) | payer MEDICARE, SELFPAY ==
--- NOTE | ~2021-02-24 | MMUS_ITS ---
EXAMINATION: MM diagnostic griselda RT w michelle, US breast RT limited HISTORY: Follow-up right breast asymmetry TECHNIQUE: Additional 3-D tomosynthesis images of the right breast were performed and synthetic 2-D i mages were generated. CAD analysis was submitted and interpreted. High resolution Limited right breas t ultrasound was performed. COMPARISON: Comparison to multiple prior studies sequentially, with oldest reviewed study dated 03/2014. BREAST PARENCHYMAL COMPOSITION: Breast composed of scattered areas of fibroglandular density. FINDINGS: MAMMOGRAPHIC FINDINGS: The area of asymmetry in the mid lateral aspect of the right breast anteriorly is less prominent with spot compression view, likely superimposed fibroglandular tissues. There are multiple benign-appeari ng circular calcifications. This may represent an area of fat necrosis from previous biopsy. ULTRASOUND: Limited right breast ultrasound: At 9:00, 1 cm from the nipple, there is a small 4 mm complicated cys t. At 10:00, 2 cm from the nipple, there is an oval circumscribed anechoic mass with posterior shadow ing, parallel orientation and no internal vascularity, likely benign. IMPRESSION: 1. Probable benign findings of the right breast. 2. Recommend 6 month follow-up diagnostic right mammogram and ultrasound BI-RADS category 3, probably benign findings. Reviewed, dictated and finalized at location A. UIT HELPER IMPRESSION: 1. Probable benign findings of the right breast. 2. Recommend 6 month follow-up diagnostic right mammogram and ultrasound BI-RADS category 3, probably benign findings.
== END 2021-02-24 13:25 | disposition home or self-care (01) ==
LOC: ANHIMG 13:26
PROVIDERS: PCP Internal Medicine; Visit Provider Obstetrics & Gynecology
DX: R92.8 Other abnormal and inconclusive findings on diagnostic imaging of breast (principal)
CPT/HCPCS: 76642; 77061; 77065; G0279

== ENCOUNTER 2021-06-09 11:03 | Outpatient (CLI) | payer MEDICARE, SELFPAY ==
--- NOTE | ~2021-06-09 | XR_ITS ---
XR knee RT 3V 06/09/2021 11:51 Indication: Right knee pain Procedure: 3 views right knee Comparison: No prior studies for comparison. Findings: There is mild osteoarthritis of the right knee. No fracture, subluxation or dislocation. No significant joint effusion. No foreign bodies. Impression: 1: Mild osteoarthritis of the right knee. Reviewed, dictated and finalized at location A. Impression: 1: Mild osteoarthritis of the right knee.
--- NOTE | ~2021-06-09 | XR_ITS ---
XR knee LT 3V 06/09/2021 11:51 Indication: Left knee pain Procedure: 3 views left knee Comparison: No prior studies for comparison. Findings: There is mild tricompartment osteoarthritis of the left knee. No fracture, subluxation or d islocation. No soft tissue abnormality. No joint effusion. Impression: 1: Mild osteoarthritis of the left knee. Reviewed, dictated and finalized at location A. Impression: 1: Mild osteoarthritis of the left knee.
--- NOTE | ~2021-06-09 | XR_ITS ---
EXAMINATION: XR hip LT min 2V INDICATION: Left hip pain TECHNIQUE: Two views of the left hip are obtained. COMPARISON: None available FINDINGS: Bone alignment is normal. There is no fracture. There is mild osteoarthritis. The soft tiss ues are unremarkable. IMPRESSION: 1. No acute osseous abnormality. Reviewed, dictated and finalized at location B.
== END 2021-06-09 11:04 | disposition home or self-care (01) ==
LOC: ANHIMG 11:11
PROVIDERS: PCP Internal Medicine; Visit Provider Clinical Nurse Specialist
DX: M25.559 Pain in unspecified hip (principal); M17.0 Bilateral primary osteoarthritis of knee
CPT/HCPCS: 73502; 73562

== ENCOUNTER 2021-10-07 17:57 | Emergency (ER) | payer MEDICARE, SELFPAY ==
--- NOTE | ~2021-10-07 | XR_ITS ---
EXAMINATION: XR lumbar spine 2-3V DATE: 10/07/2021 18:29 INDICATION: Low back pain. TECHNIQUE: 3 views of lumbar spine were obtained. COMPARISON: Lumbar spine radiographs 06/04/2018, CT abdomen and pelvis 12/01/2019 FINDINGS: There is 7 degrees dextrocurvature of lumbar spine. There is 4 mm anterolisthesis of L4 on L5. Vertebral body heights are normal. There is mildly decreased disc height at L3-L4, moderately dec reased disc height at L4-L5, and mildly decreased disc height at L5-S1. There are endplate osteophyte s at most levels. There is severe facet joint osteoarthritis in lower lumbar spine. IMPRESSION: 1. Moderate lumbar spondylosis. Reviewed, dictated and finalized at location A.
[2021-10-07 18:06] VITALS: BP 152/129; PULSE 86; O2SAT 95
--- NOTE | 2021-10-07 18:15 | ED.BACK ---
HPI - Back Pain/Injury General Chief Complaint: Back Pain/Injury Stated Complaint: back pain Time Seen by Provider: 10/07/21 18:07 History of Present Illness HPI Narrative: 71-year-old female presents the emergency room with acute on chronic low back pain. States she has been having back pain for several months, is worse with certain movements. States today the pain worsened, began to radiate around both flanks. Denies any known injury or trauma. States pain is worse with movement of her lower back, ambulate. Denies any paresthesia. Denies any bowel or bladder loss of function. Denies saddle anesthesia. States his taking Excedrin migraine headache for her pain, reporting it has not relieved her symptoms. Related Data Home Medications Medication Instructions Recorded Confirmed omeprazole 40 mg capsule,delayed 40 mg PO DAILY 03/31/19 06/02/21 release fexofenadine 180 mg tablet 180 mg PO DAILY 08/25/19 06/02/21 (Leda Allergy) fluticasone propionate 50 2 spray intranasal BID 08/25/19 06/02/21 mcg/actuation nasal spray,suspension alprazolam 1 mg tablet 1 mg PO TID 10/28/19 06/02/21 cholecalciferol (vitamin D3) 50 50 mcg PO DAILY 10/28/19 06/02/21 mcg (2,000 unit) capsule (Vitamin D3) duloxetine 60 mg capsule,delayed 60 mg PO DAILY 10/28/19 06/02/21 release trazodone 150 mg tablet 300 mg PO HS 10/28/19 06/02/21 quetiapine 200 mg tablet 400 mg PO HS 03/26/20 06/02/21 oxybutynin chloride 5 mg tablet 5 mg PO BID 05/13/20 06/02/21 sucralfate 1 gram tablet PO 01/05/21 06/02/21 Allergies Allergy/AdvReac Type Severity Reaction Status Date / Time midazolam Allergy Unknown Swelling Verified 01/05/21 14:07 of the Eye Review of Systems Review of Systems: CONSTITUTIONAL: Denies fever, chills, or sweats. EYES: Denies visual changes, redness, or discharge. ENT: Denies rhinorrhea, congestion, sore throat, or otalgia. CARDIOVASCULAR: Denies chest pain, palpitations, or edema. RESPIRATORY: Denies cough or dyspnea. GASTROINTESTINAL: Denies abdominal pain, nausea, vomiting, or diarrhea. GENITOURINARY: Denies dysuria or hematuria. SKIN: Denies rash or itching. MUSCULOSKELETAL: Reports low back pain NEUROLOGIC: Denies headache, numbness, dizziness, or weakness. PSYCHIATRIC: Denies anxiety or depression. [facility] Past Medical History Medical History Breast cancer Cataract Chicken pox Depression with anxiety Duodenal ulcer Essential hypertension Gastric ulcer Herniated disc HLD (hyperlipidemia) Lymphedema Measles Neuropathy Obesity Osteoarthritis Tendonitis Surgical History Surgical History H/O adenoidectomy History of salpingo-oophorectomy Hx of cholecystectomy Hx of lumpectomy lt breast and lymph nodes Hx of tonsillectomy Family History Family History Father Acute myocardial infarction Sibling Patient's brother is in good health Sibling Breast cancer Mother Myocardial infarction Other Family history of hypercholesterolemia Social History Social History Smoking status: Never smoker Tobacco type: cigarettes Second hand tobacco smoke exposure: No Alcohol intake: former Alcohol use details: none in 2 years Substance use: never Substance use type: does not use Gender identity (if verbalized by the patient): Female Sexual Orientation (if Verbalized by the Patient): Straight or Heterosexual Exam Narrative: GENERAL: Well-appearing, well-nourished, no physical limitations, and in no acute distress. HEAD: Normocephalic, atraumatic. EYES: Conjunctivae normal, PERRLA and EOMI. CHEST: Clear to auscultation. No respiratory distress. No wheezes rales or rhonchi. No tenderness. HEART: Regular rate and rhythm. No murmur heard. Normal peripheral pulses
[2021-10-07] MEDS: KETOROLAC (*BKC) 60 MG/2 ML VIAL IM (18:45)
--- NOTE | 2021-10-07 18:46 | PC.NURSE ---
patient requesting morphine stating that will take my pain right away and the toradol wont work
[2021-10-07 20:04] LABS: Appearance Urine Clear (Clear); Bilirubin Urine Negative (Negative); Blood Urine Negative (Negative); Color Urine Yellow (Yellow); Glucose Urine UA Negative (Negative); Ketones Urine Negative (Negative); Leukocyte Esterase Ur Negative LEU/UL (Negative); Nitrate Urine Negative (Negative); Protein Urine Negative (Negative); Urobilinogen Urine 0.2 mg/dL (<2.0); pH Urine 5.5 (5.0-9.0)
[2021-10-07 20:20] LABS: Add Urine Microscopic? NO
== END 2021-10-07 20:32 | disposition home or self-care (01) ==
PROVIDERS: Emergency Provider Nurse Practitioner Family; PCP Internal Medicine
DX: M54.50 Low back pain, unspecified (principal); G89.29 Other chronic pain; I10 Essential (primary) hypertension; E78.5 Hyperlipidemia, unspecified; M19.90 Unspecified osteoarthritis, unspecified site; G62.9 Polyneuropathy, unspecified; F41.8 Other specified anxiety disorders; Z85.3 Personal history of malignant neoplasm of breast; M47.816 Spondylosis without myelopathy or radiculopathy, lumbar region
CPT/HCPCS: 72100; 81003; 96372; 99283; J1885

== ENCOUNTER → 2021-12-01 14:36 | Outpatient (CLI) | payer MEDICARE, SELFPAY ==
--- NOTE | ~2021-12-01 | XR_ITS ---
EXAMINATION: XR ankle RT min 3V DATE: 12/01/2021 15:10 INDICATION: Right ankle pain. TECHNIQUE: 4 views of right ankle were obtained. COMPARISON: Right foot radiographs 01/01/2012 FINDINGS: Bone alignment is normal. No fracture. There is mild midfoot osteoarthritis. There is an en thesophyte at plantar aspect of calcaneal tuberosity. There is ankle soft tissue swelling. IMPRESSION: 1. Mild midfoot osteoarthritis. Reviewed, dictated and finalized at location A.
--- NOTE | ~2021-12-01 | XR_ITS ---
EXAMINATION: XR knee RT min 4V DATE: 12/01/2021 15:10 INDICATION: Right knee pain. TECHNIQUE: 5 views of right knee were obtained. COMPARISON: Right knee radiographs 06/09/2021 FINDINGS: There is lateral subluxation of patella. No fracture. There is mild tricompartmental osteoa rthritis. There is a small knee joint effusion. There is prepatellar soft tissue swelling. IMPRESSION: 1. Mild right knee osteoarthritis. 2. Small right knee joint effusion. Reviewed, dictated and finalized at location A.
== END ==
PROVIDERS: PCP Clinical Nurse Specialist; Visit Provider Clinical Nurse Specialist
DX: M17.11 Unilateral primary osteoarthritis, right knee (principal); M25.461 Effusion, right knee; M19.071 Primary osteoarthritis, right ankle and foot
CPT/HCPCS: 73564; 73610

== ENCOUNTER 2021-12-20 15:17 | Outpatient (CLI) | payer MEDICARE, SELFPAY ==
--- NOTE | ~2021-12-20 | US_ITS ---
EXAMINATION: US venous doppler UE LT DATE: 12/20/2021 16:47 INDICATION: Swelling of the left arm for 5 days. TECHNIQUE: Drummond scale images with and without compression and Doppler images of the left upper extrem ity veins were obtained. COMPARISON: None. FINDINGS: The left internal jugular vein, subclavian vein, axillary vein, brachial veins, basilic vein, cephali c vein, radial vein, and ulnar vein are patent. In the left lateral distal arm there is an oval cysti c structure with internal vascularity measuring 8 mm. IMPRESSION: 1. Patent left upper extremity veins. No evidence of deep venous thrombosis. 2: Oval circumscribed hypoechoic 8mm mass in the left lateral distal arm with internal vascularity an d no significant posterior features. This may represent a pathologic lymph node with effacement of th e fatty hilum. Sebaceous cyst is unlikely given the deep location. Posttraumatic hematoma/seroma is p ossible, although less favored given the vascularity. Reviewed, dictated and finalized at location A. IMPRESSION: 1. Patent left upper extremity veins. No evidence of deep venous thrombosis. 2: Oval circumscribed hypoechoic 8mm mass in the left lateral distal arm with i nternal vascularity and no significant posterior features. This may represent a pathologic lymph node with effacement of the fatty hilum. Sebaceous cyst is un likely given the deep location. Posttraumatic hematoma/seroma is possible, alth ough less favored given the vascularity.
== END 2021-12-20 15:18 | disposition home or self-care (01) ==
PROVIDERS: PCP Internal Medicine; Visit Provider Clinical Nurse Specialist
DX: M79.89 Other specified soft tissue disorders (principal)
CPT/HCPCS: 93971

== ENCOUNTER 2022-01-14 10:48 | Outpatient (CLI) | payer MEDICARE, SELFPAY ==
--- NOTE | ~2022-01-14 | MR_ITS ---
EXAMINATION: MR ankle RT wo con DATE: 01/14/2022 11:55 INDICATION: Right ankle pain TECHNIQUE: Magnetic resonance imaging (MRI) of the right ankle was performed without intravenous cont rast. Sequences included sagittal, coronal, and axial proton-density weighted fast spin echo without and with fat saturation. COMPARISON: None. FINDINGS: Medial ankle ligaments: Deep deltoid ligament is normal. There is thickening and increased signal of the anterior tibia navic ular and tibial spurring components of the superficial deltoid ligament with minimal associated edema suggesting subacute moderate grade sprain/partial tear. The spring ligament complex remains normal. Lateral ankle ligaments: There is prominent thickening and increased signal of the anterior and posterior inferior tibiofibula r ligaments consistent with additional subacute moderate grade sprain/partial tear. In addition there is a nondisplaced likely avulsion fracture involving the tibial posterior malleolar footplate of the posterior inferior tibiofibular ligament. The visualized portion of the more cephalad tibiofibular s yndesmotic ligament remains normal. There is a mild partial tear involving the cephalad aspect of the anterior talofibular ligament with likely secondary mild reactive edema along portions of the talar footplate at the anteromedial margin of the talar dome. The calcaneofibular and posterior talofibular ligaments are normal. Tendons: Achilles tendon is normal. The peroneus longus tendon is normal. There is a split of the peroneus nahomy vis tendon above the level of the retromalleolar groove which could represent a longitudinal split te ar however the more medial side of the tendon appears to insert separately along the lateral side of the calcaneus at or near the trochlear process in this more likely represents a normal developmental variant accessory peroneus quartus tendon. The tibialis anterior and extensor hallucis longus and ext ensor digitorum longus tendons are normal. The tibialis posterior, flexor digitorum longus and flexor hallucis longus tendons are normal. Plantar fascia: Moderate-sized plantar calcaneal spur. There is mild thickening and subtle increased signal of the pr oximal 3 cm of the plantar aponeurosis without significant surrounding edema which could represent ch ronic enthesopathy or a plantar fibroma. Bones/other: Bone alignment is normal. There is some residual marrow edema at the site of a likely healing subacut e nondisplaced fracture of the posterior malleolus. No evident fracture gap or incongruity along the articular surface where the overlying cartilage appears to remain intact. Otherwise normal marrow sig nal with no pathologic marrow replacing process. Osseous fusion across of either a chronic avulsion f racture or more likely an accessory os tibiale externum at the medial aspect of the navicula. Mild po lyarticular osteoarthritis at the right ankle, mid and hindfoot most prominent at the second and thir d tarsal metatarsal joints. Fluid: Physiologic amount of fluid in the joint spaces. No joint effusions, bursitis, tenosynovitis or other abnormal fluid collections. IMPRESSION: 1. Likely subacute moderate grade sprain/partial tears of the anterior and posterior inferior tibiofi bular ligaments along the cephalad margin of the anterior talofibular ligament (high ankle sprain). 2. Associated likely healing subacute nondisplaced intra-articular avulsion fracture involving the fo otplate of the posterior tibiofibular ligament at the posterior malleolus. 3. Likely subacute moderate grade sprain of the anterior superficial deltoid ligament. 4. Possible longitudinal split tear of the peroneus brevis tendon although this appears more likely t o represent a normal variant distally dividing accessory peroneus quartus tendon. 5. Mild plantar enthesopathy versus plantar fibroma
== END 2022-01-14 10:49 | disposition home or self-care (01) ==
PROVIDERS: PCP Internal Medicine; Visit Provider Clinical Nurse Specialist
DX: M19.071 Primary osteoarthritis, right ankle and foot (principal)
CPT/HCPCS: 73721

== ENCOUNTER 2022-01-25 13:40 | Outpatient (CLI) | payer MEDICARE, SELFPAY ==
--- NOTE | ~2022-01-25 | MMUS_ITS ---
EXAMINATION: MM diagnostic griselda BI w michelle, US breast RT limited HISTORY: Six-month follow-up of probable benign findings of right breast was recommended on 02/20/2021 diagnostic right mammogram and limited right breast ultrasound examination TECHNIQUE: Bilateral full field ML, MLO and CC and right colon compression MLO and CC spot 3-D tomosy nthesis images were performed and synthetic 2-D images were generated. CAD analysis was submitted and interpreted. High resolution upper outer and lower-outer quadrant right breast ultrasound was perfor med. COMPARISON: 04/17/2019 bilateral screening mammogram BREAST PARENCHYMAL COMPOSITION: There are scattered areas of fibroglandular density. FINDINGS: MAMMOGRAPHIC FINDINGS: Stable postoperative changes from partial left mastectomy, including surgical clips in the posterior superior upper outer quadrant of the left breast, overlying retraction and chronic loss of volume the left breast. Since 04/17/2019 there is some asymmetric density in the anterior lateral mid left breast. Ultrasound examination was therefore performed at the lateral half of the left breast. There are scattered benign calcifications. No malignant calcification is noted. ULTRASOUND: Right breast 10:00 area 2 cm from nipple: There is an approximately 6 mm rounded sonolucency without shadowing which likely corresponds to a calcified microhematoma. At 9:00 2 cm from the nipple there is a parallel circumscribed sonolucency measuring 3 x 6 x 6.3 mm, likely a small cyst. No suspicious mass or suspicious shadowing is detected in the upper outer or lower outer right breast . IMPRESSION: 1. Probable benign findings 2. 6 month diagnostic right mammogram follow-up is recommended, with ultrasound if required BI-RADS category 3, probably benign findings. Reviewed, dictated and finalized at location A. ARY CLASS TEACHER IMPRESSION: 1. Probable benign findings 2. 6 month diagnostic right mammogram follow-up is recommended, with ultrasound if required BI-RADS category 3, probably benign findings.
== END 2022-01-25 13:41 | disposition home or self-care (01) ==
PROVIDERS: PCP Internal Medicine; Visit Provider Obstetrics & Gynecology
DX: R92.8 Other abnormal and inconclusive findings on diagnostic imaging of breast (principal)
CPT/HCPCS: 76642; 77062; 77066; G0279

== ENCOUNTER 2022-05-23 20:57 | Emergency (ER) | payer MEDICARE, SELFPAY ==
--- NOTE | ~2022-05-23 | XR_ITS ---
EXAMINATION: XR wrist RT min 3V DATE: 05/23/2022 23:34 INDICATION: Right arm pain post fall TECHNIQUE: Posteroanterior, ulnar deviation, oblique, and lateral views of the right wrist were obtai kelley. COMPARISON: 12/19/2010 FINDINGS: Bone alignment is normal. No fracture. Unchanged mild polyarticular osteoarthritis involving multiple joints the right wrist and hand. Prominent soft tissue swelling with reticulated pattern of subcutan eous edema about the hand, wrist and distal forearm. IMPRESSION: 1. Mild polyarticular osteoarthritis. No acute osseous abnormality. Reviewed, dictated and finalized at location A. TESTER
--- NOTE | ~2022-05-23 | XR_ITS ---
EXAMINATION: XR shoulder RT min 2V DATE: 05/23/2022 23:33 INDICATION: Right arm pain post fall TECHNIQUE: AP internally and externally rotated and transscapular Y views of the right shoulder were obtained. COMPARISON: 05/01/2017 FINDINGS: Interval placement of a reverse right total shoulder arthroplasty. There is a comminuted periprosthet ic fracture which includes a transverse fracture plane at the level of the tip of the humeral compone nt which is displaced roughly 3.5 cm posterolaterally and with 30 degrees posterior angulation. There is also approximately 7 cm long flap fragment involving portion of the metaphysis along the cemented stem. There are couple more chronic appearing fracture fragments with smooth corticated margins in t he region of the posterior greater tuberosity which likely represent residual nonunited fragments fro m the earlier proximal humeral fracture. The humeral component of the arthroplasty appears to remain engaged with the glenoid component. No evidence catheter for fracture or loosening of the glenoid com ponent. No other fractures identified. Mild acromioclavicular osteoarthritis. Visualized portions of the right lung are clear. IMPRESSION: Displaced and angulated, comminuted periprosthetic fracture about the humeral component of a reverse right total shoulder arthroplasty. Reviewed, dictated and finalized at location A. OZOOLOGY TEACHER IMPRESSION: Displaced and angulated, comminuted periprosthetic fracture about the humeral c omponent of a reverse right total shoulder arthroplasty.
--- NOTE | ~2022-05-23 | XR_ITS ---
EXAMINATION: XR humerus RT, XR elbow RT min 3V DATE: 05/23/2022 23:34 INDICATION: Right arm pain and bruising post fall TECHNIQUE: 1. Internal and externally rotated views of the right humerus were obtained. 2. Anteroposterior, two oblique and lateral views of the right elbow were obtained. COMPARISON: 05/01/2017 FINDINGS: Reverse right total shoulder arthroplasty with displaced and angulated, comminuted periprosthetic fra cture about the length of the stem of the humeral component. See right shoulder radiograph report for further detail. No other more distal fracture in the humerus or visualized forearm. Mild osteoarthri tis at the right elbow with no joint effusion. Soft tissue swelling with prominent subcutaneous edema about the elbow and visualized proximal forearm. IMPRESSION: 1. Reverse right total shoulder arthroplasty with displaced and angulated comminuted periprosthetic f racture about the stem of the humeral component. 2. Mild osteoarthritis at the right elbow. Reviewed, dictated and finalized at location A. NG INSTRUCTOR IMPRESSION: 1. Reverse right total shoulder arthroplasty with displaced and angulated commi nuted periprosthetic fracture about the stem of the humeral component. 2. Mild osteoarthritis at the right elbow.
[2022-05-23 21:02] VITALS: BP 107/69; PULSE 85; RESP 24; TEMP 36.4; O2SAT 98
--- NOTE | 2022-05-23 22:36 | ED.GENADULT ---
HPI - General Adult General Chief complaint: Extremity Injury, Upper Stated complaint: right arm swelling and bruising Time Seen by Provider: 05/23/22 21:52 History of Present Illness HPI narrative: Is a 72-year-old female presenting ED with right arm bruising and swelling. On the patient had put her miniature poodle Muffin in the kitchen as month and was not feeling well. Then while she was trying to close the doggie gait she tripped over it and fell onto her right shoulder. Over the next several days she has had increased bruising and swelling of the arm and now has swelling from the shoulder all the way to her fingertips. patient has a history of right shoulder surgeries and has minimal function of that arm as it is. Patient is here because of the pain. She has taken Excedrin at home with no relief. Denies numbness tingling weakness to the extremity. She denies use of blood thinners. She denies head trauma or other traumatic injury. Related Data Home Medications Medication Instructions Recorded Confirmed fexofenadine 180 mg tablet 180 mg PO DAILY 08/25/19 03/07/22 (Leda Allergy) fluticasone propionate 50 2 spray intranasal BID 08/25/19 03/07/22 mcg/actuation nasal spray,suspension alprazolam 1 mg tablet 1 mg PO TID 10/28/19 03/07/22 cholecalciferol (vitamin D3) 50 50 mcg PO DAILY 10/28/19 03/07/22 mcg (2,000 unit) capsule (Vitamin D3) duloxetine 60 mg capsule,delayed 60 mg PO DAILY 10/28/19 03/07/22 release trazodone 150 mg tablet 300 mg PO HS 10/28/19 03/07/22 quetiapine 200 mg tablet 400 mg PO HS 03/26/20 03/07/22 oxybutynin chloride 5 mg tablet 5 mg PO DAILY 10/13/21 03/07/22 pantoprazole 40 mg tablet,delayed 40 mg PO QAM 11/29/21 03/07/22 release propranolol 20 mg tablet 20 mg PO Q12H 11/29/21 03/07/22 Allergies Allergy/AdvReac Type Severity Reaction Status Date / Time midazolam Allergy Unknown Swelling Verified 03/07/22 14:48 of the Eye [facility] Past Medical History Medical History Breast cancer Cataract Chicken pox Claustrophobia Depression with anxiety Duodenal ulcer Essential hypertension Gastric ulcer Herniated disc HLD (hyperlipidemia) Lymphedema Measles Morbid obesity due to excess calories Neuropathy Obesity Osteoarthritis Right ankle sprain Tendonitis Surgical History Surgical History H/O adenoidectomy History of salpingo-oophorectomy Hx of cholecystectomy Hx of lumpectomy lt breast and lymph nodes Hx of tonsillectomy S/P shoulder surgery Family History Family History Father Acute myocardial infarction Sibling Patient's brother is in good health Sibling Breast cancer Mother Myocardial infarction Other Family history of hypercholesterolemia Social History Social History Smoking status: Never smoker Tobacco type: cigarettes Second hand tobacco smoke exposure: No Alcohol intake: former Alcohol use details: none in 2 years Substance use: never Substance use type: does not use Living arrangements: with family Occupation/Education: retired Gender identity (if verbalized by the patient): Female Sexual Orientation (if Verbalized by the Patient): Straight or Heterosexual Exam Narrative: APPEARANCE: No apparent distress. Head: atraumatic. EYES: EOMI, NOSE: Atraumatic NECK: Trachea midline RESPIRATORY: No increased rate of breathing CARDIOVASCULAR: RRR, ABDOMINAL: Non-distended MUSCULOSKELETAl: Focal exam of the right upper extremity revealed a well-healed surgical scar over the shoulder. The patient has significant bruising Over the biceps and upper extremityand swelling extending from the right shoulder all the way to her right hand. pulses are +2 in the Radian/ulnar distribution. Cap ref
[2022-05-24] MEDS: oxyCODONE HCL (*CRX) 5 MG TAB IR PO (00:17)
== END 2022-05-24 02:16 | disposition home or self-care (01) ==
PROVIDERS: Emergency Provider Emergency Medicine; PCP Internal Medicine
DX: S42.201A Unspecified fracture of upper end of right humerus, initial encounter for closed fracture (principal); M97.31XA Periprosthetic fracture around internal prosthetic right shoulder joint, initial encounter; S40.011A Contusion of right shoulder, initial encounter; R60.9 Edema, unspecified; I10 Essential (primary) hypertension; E78.5 Hyperlipidemia, unspecified; I89.0 Lymphedema, not elsewhere classified; E66.01 Morbid (severe) obesity due to excess calories; Z68.41 Body mass index [BMI] 40.0-44.9, adult; M19.90 Unspecified osteoarthritis, unspecified site; F41.8 Other specified anxiety disorders; Z85.3 Personal history of malignant neoplasm of breast; M19.031 Primary osteoarthritis, right wrist; M19.021 Primary osteoarthritis, right elbow; W18.09XA Striking against other object with subsequent fall, initial encounter
CPT/HCPCS: 73030; 73060; 73080; 73110; 99284; A9270

== ENCOUNTER 2022-05-26 13:17 | Emergency (ER) | payer MEDICARE, SELFPAY ==
--- NOTE | ~2022-05-26 | XR_ITS ---
XR ribs LT 2V DATE: 05/26/2022 14:42 INDICATION: Left mid posterior rib pain following fall on 05/23/2022 TECHNIQUE: 4 views of left ribs COMPARISON: 01/21/2018 portable AP chest FINDINGS: Incidentally noted are some surgical clips overlying the left breast and left axilla. There is mild levoscoliosis and diffuse idiopathic skeletal hyperostosis of the thoracic spine. Anterior fractures of left eighth, ninth and 10th ribs, minimally displaced. No left pulmonary infiltrate or consolidation, pleural effusion or pneumothorax is detected. Surgical clips, right upper quadrant, consistent with cholecystectomy. IMPRESSION: Anterior left eighth, ninth and 10th rib fractures Reviewed, dictated and finalized at location B. ITE CUTTER
[2022-05-26 13:38] VITALS: BP 206/188; PULSE 71; RESP 18; TEMP 37; O2SAT 100
--- NOTE | 2022-05-26 14:11 | ED.GENADULT ---
HPI - General Adult General Chief complaint: Fall Stated complaint: lt side stomach/lower back pain Time Seen by Provider: 05/26/22 14:11 Source: patient, family, RN notes reviewed and old records reviewed Mode of arrival: ambulatory (with cane) Limitations: no limitations History of Present Illness HPI narrative: 72 year old female accompanied by spouse present to express care with complaints of left lateral abdomen pain after falling at home 5 days ago. Patient was seen in the emergency department on the for her fall and was diagnosed with humerus fracture and has appointment with orthopedic surgeon next week.Patient reports no other recent falls. Patient reports that she is taking Oxydocone 5mg for her pain with some pain decrease last dose about 3 hours ago she reports. Patient does have bruised are to left upper abdomen side area with palpable tenderness noted. Patient is wearing a sling to her right arm with notable swelling to her arm and dorsal hand with palpable pulses present. Patient reports that she has applied heat to her abdominal area states that ice hurts too much. She also complains of sinus congestion and drainage of green nasal drainage stating she has a sinus infection and needs an antibiotic, states she has been using Flonase and taking antihistamine with history of chronic sinusitis. Patient denies any known fevers, ear pain, sore throat or acute cough. MD complaint: left lateral abdomen pain,sinus congestion with drainage Onset (ago): day(s) (3) Severity scale (1-10): 7 Treatments prior to arrival: heat therapy and other (pain medication, flonase nasal spray and antihistamine) Related Data Home Medications Medication Instructions Recorded Confirmed fexofenadine 180 mg tablet 180 mg PO DAILY 08/25/19 03/07/22 (Leda Allergy) fluticasone propionate 50 2 spray intranasal BID 08/25/19 03/07/22 mcg/actuation nasal spray,suspension alprazolam 1 mg tablet 1 mg PO TID 10/28/19 03/07/22 cholecalciferol (vitamin D3) 50 50 mcg PO DAILY 10/28/19 03/07/22 mcg (2,000 unit) capsule (Vitamin D3) duloxetine 60 mg capsule,delayed 60 mg PO DAILY 10/28/19 03/07/22 release trazodone 150 mg tablet 300 mg PO HS 10/28/19 03/07/22 quetiapine 200 mg tablet 400 mg PO HS 03/26/20 03/07/22 oxybutynin chloride 5 mg tablet 5 mg PO DAILY 10/13/21 03/07/22 pantoprazole 40 mg tablet,delayed 40 mg PO QAM 11/29/21 03/07/22 release propranolol 20 mg tablet 20 mg PO Q12H 11/29/21 03/07/22 Allergies Allergy/AdvReac Type Severity Reaction Status Date / Time midazolam Allergy Unknown Swelling Verified 05/26/22 14:01 of the Eye Review of Systems Review of Systems: CONSTITUTIONAL: Denies fever, chills, or sweats. EYES: Denies visual changes, redness, or discharge. ENT: Reports rhinorrhea,sinus congestion with green drainage, no sore throat, or otalgia. CARDIOVASCULAR: Denies chest pain, palpitations, or edema. RESPIRATORY: Denies cough or dyspnea. GASTROINTESTINAL: left upper abdomen side pain,no nausea, vomiting, or diarrhea. GENITOURINARY: Denies dysuria or hematuria. SKIN: Denies rash or itching. MUSCULOSKELETAL: Denies back pain,positive for right upper arm pain and also pain to left lateral rib area, or myalgia. NEUROLOGIC: Denies headache, numbness, or weakness. PSYCHIATRIC: Reports anxiety or depression. All systems reviewed & are unremarkable except as noted in HPI and below PMFSH Past Medical History Medical History Breast cancer Cataract Chicken pox Claustrophobia Depression with anxiety Duodenal ulcer Essential hypertension Gastric ulcer Herniated disc HLD (hyperlipidemia) Lymphedema Measles Morbid obesity due to excess calories Neuropathy Obesity Osteoarthritis Right ankle sprain Tendonitis Surgical History Surgical History H/O adenoidectomy History of salpingo-oophorectomy Hx of ch
[2022-05-26 14:52] VITALS: BP 208/102
== END 2022-05-26 15:12 | disposition home or self-care (01) ==
PROVIDERS: Emergency Provider Registered Nurse; PCP Internal Medicine
DX: S22.32XA Fracture of one rib, left side, initial encounter for closed fracture (principal); J32.9 Chronic sinusitis, unspecified; B96.89 Other specified bacterial agents as the cause of diseases classified elsewhere; E78.5 Hyperlipidemia, unspecified; F41.9 Anxiety disorder, unspecified; F32.A Depression, unspecified; I10 Essential (primary) hypertension; Z85.3 Personal history of malignant neoplasm of breast; W19.XXXA Unspecified fall, initial encounter; Y92.009 Unspecified place in unspecified non-institutional (private) residence as the place of occurrence of the external cause
CPT/HCPCS: 71100; 99213; G0463

== ENCOUNTER 2022-07-12 11:18 | Outpatient (CLI) | payer MEDICARE, SELFPAY ==
[2022-07-12 18:59] LABS: Basophils Absolute Auto 0.1 K/mm3 (0.0-0.1); Basophils Percent Auto 1.4 % (0.2-1.2); Eosinophils Absolute Auto 0.2 K/mm3 (0-0.3); Eosinophils Percent Auto 5.6 % (0-4.4); Hematocrit 34.8 % (37.0-47.0); Hemoglobin 11.2 g/dL (12.0-15.0); Immature Granulocyte Absolute 0.01 K/mm3 (0.00-0.031); Immature Granulocyte Percent A 0.2 % (0-0.5); Lymphocytes Absolute Auto 1.51 K/mm3 (0.9-3.2); Lymphocytes Percent Auto 35.4 % (18.3-44.2); Mean Corpuscular HGB Conc 32.2 g/dl (32-36); Mean Corpuscular Hemoglobin 31.5 pg (26-34); Mean Corpuscular Volume 97.8 fl (80-100); Mean Platelet Volume 9.6 fl (7.4-10.4); Monocytes Absolute Auto 0.3 K/mm3 (0.1-0.6); Monocytes Percent Auto 5.9 % (2.6-8.5); Neutrophils Absolute Auto 2.2 K/mm3 (1.3-6.7); Neutrophils Percent Auto 51.5 % (45.5-73.1); Platelet Count Result 212 k/mm3 (150-375); Red Blood Count 3.56 M/mm3 (4.2-5.4); Red Cell Distribution Width 13.8 % (11.5-14.5); White Blood Count 4.3 K/mm3 (4.5-10.0)
[2022-07-12 19:40] LABS: Vitamin D 25 Hydroxy 57.6 ng/mL
[2022-07-12 19:44] LABS: Appearance Urine Clear (Clear); Bilirubin Urine Negative (Negative); Blood Urine Negative (Negative); Color Urine Yellow (Yellow); Glucose Urine UA Negative (Negative); Ketones Urine Negative (Negative); Leukocyte Esterase Ur Negative LEU/UL (Negative); Nitrate Urine Negative (Negative); Protein Urine Negative (Negative); Specific Grav Ur 1.015 (1.001-1.035); Urobilinogen Urine 0.2 mg/dL (<2.0)
[2022-07-12 19:45] LABS: Add Urine Microscopic? NO
[2022-07-12 19:55] LABS: Hemoglobin A1C 5.1 % (<5.7)
[2022-07-12 20:05] LABS: Alanine Aminotransferase 19 U/L (6-35); Alkaline Phosphatase 76 U/L (38-126); Anion Gap 2 mmol/L (8-16); Aspartate Amino Transferase 25 U/L (14-36); Bilirubin,Total 0.4 mg/dL (0.2-1.3); Blood Urea Nitrogen 13 mg/dL (7-17); Calcium 9.3 mg/dL (8.4-10.2); Carbon Dioxide 28 mmol/L (22-30); Chloride 106 mmol/L (98-107); Cholesterol 167 mg/dL (0-200); Estimated Glomerular Filt Rate > 60; Glucose 97 mg/dL (65-110); HDL Direct 44 mg/dL; Potassium 4.4 mmol/L (3.4-5.0); Sodium 136 mmol/L (137-145); Triglycerides 156 mg/dL (<150)
[2022-07-12 20:09] LABS: LDL Cholesterol Direct 84 mg/dL
== END 2022-07-12 11:19 | disposition home or self-care (01) ==
LOC: ANHGOSHLAB 11:20
PROVIDERS: PCP Internal Medicine; Visit Provider Internal Medicine
DX: N39.0 Urinary tract infection, site not specified (principal); E78.5 Hyperlipidemia, unspecified; E66.01 Morbid (severe) obesity due to excess calories; I10 Essential (primary) hypertension; E55.9 Vitamin D deficiency, unspecified; G62.9 Polyneuropathy, unspecified; R73.9 Hyperglycemia, unspecified; Z85.3 Personal history of malignant neoplasm of breast
CPT/HCPCS: 36415; 80053; 80061; 81003; 82306; 83036; 84443; 85025

== ENCOUNTER 2022-07-20 12:31 | Outpatient (CLI) | payer MEDICARE, SELFPAY ==
[2022-07-20 19:17] LABS: Basophils Absolute Auto 0.1 K/mm3 (0.0-0.1); Basophils Percent Auto 1.1 % (0.2-1.2); Eosinophils Absolute Auto 0.2 K/mm3 (0-0.3); Eosinophils Percent Auto 3.8 % (0-4.4); Hematocrit 36.1 % (37.0-47.0); Hemoglobin 11.5 g/dL (12.0-15.0); Immature Granulocyte Absolute 0.01 K/mm3 (0.00-0.031); Immature Granulocyte Percent A 0.2 % (0-0.5); Lymphocytes Absolute Auto 1.42 K/mm3 (0.9-3.2); Lymphocytes Percent Auto 30.3 % (18.3-44.2); Mean Corpuscular HGB Conc 31.9 g/dl (32-36); Mean Corpuscular Hemoglobin 31.5 pg (26-34); Mean Corpuscular Volume 98.9 fl (80-100); Mean Platelet Volume 9.4 fl (7.4-10.4); Monocytes Absolute Auto 0.3 K/mm3 (0.1-0.6); Monocytes Percent Auto 6.6 % (2.6-8.5); Neutrophils Absolute Auto 2.7 K/mm3 (1.3-6.7); Platelet Count Result 245 k/mm3 (150-375); Red Blood Count 3.65 M/mm3 (4.2-5.4); Reticulocyte Hemoglobin Conten 34.5 pg (28.2-35.7); Reticulocyte Percent 1.87 % (0.7-4.3); Reticulocytes Absolute 0.07 M/mm3 (0.02-0.1); White Blood Count 4.7 K/mm3 (4.5-10.0)
[2022-07-20 20:05] LABS: Iron 51 ug/dL (37-170)
[2022-07-20 20:14] LABS: Percent Iron Saturation 17 % (20-50)
[2022-07-20 20:49] LABS: Folic Acid 8.7 ng/mL (2.76->20)
== END 2022-07-20 12:32 | disposition home or self-care (01) ==
LOC: ANHGOSHLAB 12:32
PROVIDERS: PCP Internal Medicine; Visit Provider Clinical Nurse Specialist
DX: D64.9 Anemia, unspecified (principal)
CPT/HCPCS: 36415; 82607; 82728; 82746; 83540; 83550; 85025; 85046

== ENCOUNTER 2022-08-01 12:39 | Outpatient (CLI) | payer MEDICARE, SELFPAY ==
--- NOTE | ~2022-08-01 | MMUS_ITS ---
EXAMINATION: MM diagnostic griselda RT w michelle, US breast RT limited HISTORY: Six-month follow-up for probably benign right breast focal asymmetry and sonographically det ected masses. TECHNIQUE: Craniocaudal, mediolateral, and mediolateral oblique 3-D tomosynthesis images of the right breast were performed and synthetic 2-D images were generated. CAD analysis was submitted and interp reted. High resolution limited right breast ultrasound was performed. COMPARISON: 01/25/2022, 02/24/2021, 01/18/2021, 04/17/2019 BREAST PARENCHYMAL COMPOSITION: The breasts are almost entirely fatty. FINDINGS: MAMMOGRAPHIC FINDINGS: There is architectural distortion in the anterior third of the lower outer right breast at 8:00 locat ion. Multiple oil cysts are noted in the region. No suspicious calcification is identified. ULTRASOUND: Small oil cysts are noted in the upper outer quadrant of the right breast. There is a 6 mm x 3 mm ova l, circumscribed, parallel, hypoechoic mass with no posterior features or internal vascularity at the 9:00 location, 4 cm from the nipple. IMPRESSION: 1. Right breast architectural distortion. Tomosynthesis guided biopsy is recommended. 2. Probably benign sonographically detected mass at the 9:00 location, 4 cm from the nipple. Recommen d follow-up targeted right breast ultrasound in six months. BI-RADS category 4, suspicious findings. Reviewed, dictated and finalized at location A. IMPRESSION: 1. Right breast architectural distortion. Tomosynthesis guided biopsy is recomm ended. 2. Probably benign sonographically detected mass at the 9:00 location, 4 cm fro m the nipple. Recommend follow-up targeted right breast ultrasound in six month s. BI-RADS category 4, suspicious findings.
== END 2022-08-01 12:40 | disposition home or self-care (01) ==
PROVIDERS: PCP Internal Medicine; Visit Provider Obstetrics & Gynecology
DX: R92.8 Other abnormal and inconclusive findings on diagnostic imaging of breast (principal)
CPT/HCPCS: 76642; 77061; 77065; G0279

== ENCOUNTER 2022-09-07 10:31 | Outpatient (CLI) | payer MEDICARE, SELFPAY ==
--- NOTE | ~2022-09-07 | CT_ITS ---
EXAMINATION: CT abdomen pelvis w con DATE: 09/07/2022 11:10 INDICATION: Epigastric pain TECHNIQUE: Computed tomography (CT) of the abdomen and pelvis was performed with 100 cc Omnipaque 350 intravenous contrast. The dose-length product was 1414.82 mGy-cm. Automated exposure control and ite rative reconstruction technique were employed. COMPARISON: CT dated 12/01/2019. FINDINGS: Lung bases are unremarkable. Heart size normal. No significant pleural or pericardial effus ion. There is mild atherosclerosis. No aortic aneurysm. Small amount of free fluid in the pelvis. Small subcentimeter hypodensity left hepatic lobe, most likely benign cysts. The spleen, pancreas, ad renal glands and kidneys are unremarkable. There is focal fatty infiltration of the liver near the fa lciform ligament. No hydronephrosis. The bladder wall is thickened, possibly due to underdistention a lthough cystitis not is not excluded. No free air or free fluid. There is severe lower thoracic and l umbar spondylosis with grade 1 spondylolisthesis at L4-5. IMPRESSION: 1. Bladder wall is thickened, possibly due to underdistention although cystitis not is not excluded. Reviewed, dictated and finalized at location L.
[2022-09-07 11:03] LABS: Estimated Glomerular Filt Rate > 60
[2022-09-07 11:52] LABS: Basophils Percent Auto 0.3 % (0.2-1.2); Eosinophils Absolute Auto 0.1 K/mm3 (0-0.3); Eosinophils Percent Auto 1.1 % (0-4.4); Hematocrit 36.6 % (37.0-47.0); Immature Granulocyte Absolute 0.01 K/mm3 (0.00-0.031); Immature Granulocyte Percent A 0.2 % (0-0.5); Lymphocytes Absolute Auto 1.09 K/mm3 (0.9-3.2); Lymphocytes Percent Auto 16.6 % (18.3-44.2); Mean Corpuscular HGB Conc 32.8 g/dl (32-36); Mean Corpuscular Hemoglobin 30.5 pg (26-34); Mean Corpuscular Volume 92.9 fl (80-100); Mean Platelet Volume 9.1 fl (7.4-10.4); Monocytes Absolute Auto 0.6 K/mm3 (0.1-0.6); Monocytes Percent Auto 8.4 % (2.6-8.5); Neutrophils Absolute Auto 4.8 K/mm3 (1.3-6.7); Neutrophils Percent Auto 73.4 % (45.5-73.1); Platelet Count Result 265 k/mm3 (150-375); Red Blood Count 3.94 M/mm3 (4.2-5.4); Red Cell Distribution Width 13.5 % (11.5-14.5); White Blood Count 6.6 K/mm3 (4.5-10.0)
[2022-09-07 12:06] LABS: Alanine Aminotransferase 27 U/L (6-35); Albumin Level 3.9 g/dL (3.5-5.1); Alkaline Phosphatase 101 U/L (38-126); Amylase 60 U/L (30-110); Anion Gap 8 mmol/L (8-16); Aspartate Amino Transferase 27 U/L (14-36); Blood Urea Nitrogen 12 mg/dL (7-17); Calcium 9.4 mg/dL (8.4-10.2); Carbon Dioxide 30 mmol/L (22-30); Chloride 93 mmol/L (98-107); Estimated Glomerular Filt Rate > 60; Glucose 96 mg/dL (65-110); Lipase 82 U/L (23-300); Potassium 3.6 mmol/L (3.4-5.0); Sodium 131 mmol/L (137-145)
[2022-09-07 12:26] LABS: Erythrocyte Sedimentation Rate 31 mm/hr (0-20)
== END 2022-09-07 10:32 | disposition home or self-care (01) ==
LOC: ANHIMG 10:35
PROVIDERS: PCP Internal Medicine; Visit Provider Internal Medicine
DX: R10.13 Epigastric pain (principal); R11.10 Vomiting, unspecified
CPT/HCPCS: 74177; 80053; 82150; 83690; 85025; 85652; Q9967

== ENCOUNTER 2022-09-14 01:45 | Day surgery (SDC) | payer MEDICARE, SELFPAY ==
[2022-09-08 11:44] VITALS: BMI 36.1
--- NOTE | 2022-09-11 11:16 | PC.NURSE ---
spoke with Maria De Jesus BENAVIDEZ with DR. [facility] OFFICE REGARDING IF PT NEEDS ANTIBIOTICS AND THEY DO NOT REQUIRE OR RECOMMEND FOR HER, SHE CLARIFIED PT ONLY HAD HARDWARE REMOVED AND DID NOT HAVE ANOTHER REPLACEMENT.
--- NOTE | 2022-09-13 15:06 | PM.HPGS ---
History of Present Illness History of Present Illness Consent: Risks, benefits, and alternatives have been discussed and questions answered. Patient agrees to proceed with procedure. Chief complaint: epigastric pain Narrative: Francia Poon is a 72 year old female ?c/o nausea and vomiting. She has been vomiting yellow bile and states she is having severe upper abdominal pain.? Review of Systems Review of Systems: All systems reviewed & are unremarkable except as noted in HPI and below PMFSH Past Medical History Medical History Breast cancer Cataract Chicken pox Claustrophobia Depression with anxiety Duodenal ulcer Essential hypertension Gastric ulcer Herniated disc History of TMJ disorder HLD (hyperlipidemia) Lymphedema Measles Morbid obesity due to excess calories Neuropathy Obesity Osteoarthritis Right ankle sprain Tendonitis Vomiting (bilious) following gastrointestinal surgery Surgical History Surgical History H/O adenoidectomy History of salpingo-oophorectomy Hx of cholecystectomy Hx of lumpectomy lt breast and lymph nodes Hx of tonsillectomy S/P shoulder surgery Family History Family History Father Acute myocardial infarction Sibling Patient's brother is in good health Sibling Breast cancer Mother Myocardial infarction Other Family history of hypercholesterolemia Social History Social History Smoking status: Never smoker Tobacco type: cigarettes Second hand tobacco smoke exposure: No Alcohol intake: never Substance use: never Substance use type: does not use Lack of Transportation: No Lack of Food: Never True Current Housing: I Have Housing Concerned About Future Housing: No Difficulty Paying Gas/Electric Bills: No Difficulty Paying for Meds: No Currently Unemployed: No Education: High School Diploma/GED Difficulty w/ Childcare or Family Care: No Living arrangements: with family Occupation/Education: retired Gender identity (if verbalized by the patient): Female Sexual Orientation (if Verbalized by the Patient): Straight or Heterosexual Spiritual care concerns: No Meds Home Medications and Allergies Home Medications Medication Instructions Recorded Confirmed Type fluticasone propionate 50 2 spray intranasal BID 08/25/19 09/14/22 History mcg/actuation nasal spray,suspension cholecalciferol (vitamin D3) 50 50 mcg PO DAILY 10/28/19 09/14/22 History mcg (2,000 unit) capsule (Vitamin D3) duloxetine 60 mg capsule,delayed 60 mg PO DAILY 10/28/19 09/14/22 History release lisinopril 40 mg tablet See Rx Instructions .Route 10/01/21 09/14/22 Rx .COMPLEX #90 tabs propranolol 20 mg tablet 20 mg PO Q12H 11/29/21 09/14/22 History atorvastatin 20 mg tablet 20 mg PO DAILY #90 tabs 04/14/22 09/14/22 Rx gabapentin 300 mg capsule See Rx Instructions .Route 06/30/22 09/14/22 Rx .COMPLEX #180 caps quetiapine 200 mg tablet 300 mg PO HS 07/04/22 09/14/22 History sumatriptan succinate 100 mg tablet See Rx Instructions .Route 07/04/22 09/14/22 Rx .COMPLEX #9 tabs topiramate 25 mg tablet (Topamax) 25 mg PO BID #60 tabs 07/04/22 09/14/22 Rx trazodone 150 mg tablet 100 mg PO BID 07/04/22 09/14/22 History oxybutynin chloride 5 mg tablet See Rx Instructions PO DAILY 07/07/22 09/14/22 History alendronate 70 mg tablet See Rx Instructions .Route 07/10/22 09/14/22 Rx .COMPLEX #12 tabs omeprazole 40 mg capsule,delayed 40 mg PO DAILY #30 caps 09/07/22 09/14/22 Rx release Allergies Allergy/AdvReac Type Severity Reaction Status Date / Time midazolam [From Versed] Allergy Swelling Verified 09/14/22 11:59 of Lip/Tongue/Throat Exam Const: General: alert Orientation/consciousness: patient oriented x3
[2022-09-14 12:03] VITALS: BP 113/78; PULSE 76; RESP 18; TEMP 36; O2SAT 98
[2022-09-14] MEDS: LACTATED RINGERS 1,000 ML 150 ML IV CONT (12:24)
--- NOTE | 2022-09-14 12:52 | WPDANESEPPF ---
Anes - Initial Pre Proc Eval Procedure: Operation Date: 09/14/22 13:15 Proposed Procedures p Esophagogastroduodenoscopy EGD - Geo Hedrick MD Date/Time: 09/14/22 12:52 Surgeon: Geo Hedrick MD Pre Op Diagnosis: epigastric pain Patient Data Age: 72 Gender: F Height: 1.63 m Weight: 101.6 kg Last Vital Signs Temp 96.8 F L 09/14/22 12:03 Pulse 76 09/14/22 12:03 Resp 18 09/14/22 12:03 BP 113/78 09/14/22 12:03 Pulse Ox 98 09/14/22 12:03 O2 Del Method Room Air 09/14/22 12:03 Allergies Allergy/AdvReac Type Severity Reaction Status Date / Time midazolam [From Versed] Allergy Swelling Verified 09/14/22 11:59 of Lip/Tongue/Throat Home Medications Medication Instructions Recorded Confirmed Type fluticasone propionate 50 2 spray intranasal BID 08/25/19 09/14/22 History mcg/actuation nasal spray,suspension cholecalciferol (vitamin D3) 50 50 mcg PO DAILY 10/28/19 09/14/22 History mcg (2,000 unit) capsule (Vitamin D3) duloxetine 60 mg capsule,delayed 60 mg PO DAILY 10/28/19 09/14/22 History release lisinopril 40 mg tablet See Rx Instructions .Route 10/01/21 09/14/22 Rx .COMPLEX #90 tabs propranolol 20 mg tablet 20 mg PO Q12H 11/29/21 09/14/22 History atorvastatin 20 mg tablet 20 mg PO DAILY #90 tabs 04/14/22 09/14/22 Rx gabapentin 300 mg capsule See Rx Instructions .Route 06/30/22 09/14/22 Rx .COMPLEX #180 caps quetiapine 200 mg tablet 300 mg PO HS 07/04/22 09/14/22 History sumatriptan succinate 100 mg tablet See Rx Instructions .Route 07/04/22 09/14/22 Rx .COMPLEX #9 tabs topiramate 25 mg tablet (Topamax) 25 mg PO BID #60 tabs 07/04/22 09/14/22 Rx trazodone 150 mg tablet 100 mg PO BID 07/04/22 09/14/22 History oxybutynin chloride 5 mg tablet See Rx Instructions PO DAILY 07/07/22 09/14/22 History alendronate 70 mg tablet See Rx Instructions .Route 07/10/22 09/14/22 Rx .COMPLEX #12 tabs omeprazole 40 mg capsule,delayed 40 mg PO DAILY #30 caps 09/07/22 09/14/22 Rx release Patient hx anesthesia problems: none Family hx anesthesia problems: none Results Review: All pre-operative results and documents have been reviewed as part of the pre-operative evaluation. [facility] Past Medical History Medical History Breast cancer Cataract Chicken pox Claustrophobia Depression with anxiety Duodenal ulcer Essential hypertension Gastric ulcer Herniated disc History of TMJ disorder HLD (hyperlipidemia) Lymphedema Measles Morbid obesity due to excess calories Neuropathy Obesity Osteoarthritis Right ankle sprain Tendonitis Vomiting (bilious) following gastrointestinal surgery Surgical History Surgical History H/O adenoidectomy History of salpingo-oophorectomy Hx of cholecystectomy Hx of lumpectomy lt breast and lymph nodes Hx of tonsillectomy S/P shoulder surgery Family History Family History Father Acute myocardial infarction Sibling Patient's brother is in good health Sibling Breast cancer Mother Myocardial infarction Other Family history of hypercholesterolemia Social History Social History Smoking status: Never smoker Tobacco type: cigarettes Second hand tobacco smoke exposure: No Alcohol intake: never Substance use: never Substance use type: does not use Lack of Transportation: No Lack of Food: Never True Current Housing: I Have Housing Concerned About Future Housing: No Difficulty Paying Gas/Electric Bills: No Difficulty Paying for Meds: No Currently Unemployed: No Education: High School Diploma/GED Difficulty w/ Childcare or Family Care: No Living arrangements: with family Occupation/Education: retired Gender identity (if verbalized by the patient): Female Sexua
[2022-09-14 13:31] VITALS: BP 136/103; PULSE 60; RESP 17; O2SAT 98
[2022-09-14 13:41] VITALS: BP 120/55; PULSE 63; RESP 22; O2SAT 96
[2022-09-14 13:51] VITALS: BP 135/71; PULSE 62; RESP 20; O2SAT 98
--- NOTE | 2022-09-14 13:51 | SUR.PHASEII ---
Pt complains of abdomen pain and back pain asking for pain medication. Dr. Hedrick notified states he cannot prescribe narcotics. No new orders received.
== END 2022-09-14 14:20 | disposition home or self-care (01) ==
PROVIDERS: PCP Internal Medicine; Visit Provider Internal Medicine Gastroenterology
PROC: 0DJ08ZZ Inspection of Upper Intestinal Tract, Via Natural or Artificial Opening Endoscopic (ICD-10-PCS; CPT 43235; principal; 2022-09-14 13:15)
DX: K25.9 Gastric ulcer, unspecified as acute or chronic, without hemorrhage or perforation (principal); K26.9 Duodenal ulcer, unspecified as acute or chronic, without hemorrhage or perforation; I10 Essential (primary) hypertension; E78.5 Hyperlipidemia, unspecified; F41.8 Other specified anxiety disorders; G62.9 Polyneuropathy, unspecified; Z85.3 Personal history of malignant neoplasm of breast; E66.9 Obesity, unspecified; Z68.38 Body mass index [BMI] 38.0-38.9, adult
CPT/HCPCS: 43239; 87081; 88305; J2704; J7120

== ENCOUNTER 2022-09-18 21:27 | Emergency (ER) | payer MEDICARE, SELFPAY ==
--- NOTE | ~2022-09-18 | CT_ITS ---
EXAMINATION: CT abdomen pelvis w con DATE: 09/19/2022 02:48 INDICATION: Generalized abdominal pain. Constipation. TECHNIQUE: Computed tomography (CT) of the abdomen and pelvis was performed with 100 mL Omnipaque 350 intravenous contrast. Automated exposure control and iterative reconstruction technique were employe d. The dose-length product was 1298.73 mGy-cm. COMPARISON: CT abdomen and pelvis 09/07/2022 FINDINGS: The visualized portions of the lung bases demonstrate mild atelectasis. There is a trace ri ght pleural effusion. The heart size is normal. No pericardial effusion. The liver and spleen are nor mal. There are changes of cholecystectomy. The pancreas, adrenal glands, and kidneys are normal. Ther e is prominent fat in the inguinal canals that may be hernias. There is a large volume of stool in th e colon. The colon is mildly distended. The appendix is not visualized. There is a periumbilical vent ral hernia containing fat. There is mild aortic atherosclerosis. There are no pathologically enlarged lymph nodes. There is no free intraperitoneal fluid. There is severe lumbar spondylosis. There is a stable burst fracture of superior endplate of T12, likely subacute. IMPRESSION: 1. Mildly distended colon with large volume of stool. 2. Periumbilical ventral hernia containing fat. 3. Stable T12 burst fracture, likely subacute. Reviewed, dictated and finalized at location E.
[2022-09-18 21:34] VITALS: BP 141/90; PULSE 64; RESP 14; TEMP 36.9; O2SAT 96
[2022-09-18 22:55] VITALS: BP 133/90; PULSE 62; RESP 18; O2SAT 97
[2022-09-18 23:02] LABS: Appearance Urine Clear (Clear); Bilirubin Urine Negative (Negative); Blood Urine Negative (Negative); Color Urine Yellow (Yellow); Glucose Urine UA Negative (Negative); Ketones Urine Negative (Negative); Leukocyte Esterase Ur Negative LEU/UL (Negative); Nitrate Urine Negative (Negative); Protein Urine Negative (Negative); Specific Grav Ur 1.006 (1.001-1.035); Urobilinogen Urine 0.2 mg/dL (<2.0)
[2022-09-18 23:06] LABS: Add Urine Microscopic? NO
[2022-09-18 23:23] VITALS: O2SAT 96
[2022-09-18 23:23] LABS: Basophils Absolute Auto 0.1 K/mm3 (0.0-0.1); Basophils Percent Auto 1.7 % (0.2-1.2); Eosinophils Absolute Auto 0.3 K/mm3 (0-0.3); Eosinophils Percent Auto 6.6 % (0-4.4); Hematocrit 39.2 % (37.0-47.0); Hemoglobin 12.8 g/dL (12.0-15.0); Immature Granulocyte Absolute 0.02 K/mm3 (0.00-0.031); Immature Granulocyte Percent A 0.4 % (0-0.5); Lymphocytes Absolute Auto 1.44 K/mm3 (0.9-3.2); Lymphocytes Percent Auto 30.5 % (18.3-44.2); Mean Corpuscular HGB Conc 32.7 g/dl (32-36); Mean Corpuscular Hemoglobin 30.9 pg (26-34); Mean Corpuscular Volume 94.7 fl (80-100); Mean Platelet Volume 9.5 fl (7.4-10.4); Monocytes Absolute Auto 0.4 K/mm3 (0.1-0.6); Monocytes Percent Auto 8.5 % (2.6-8.5); Neutrophils Absolute Auto 2.5 K/mm3 (1.3-6.7); Neutrophils Percent Auto 52.3 % (45.5-73.1); Platelet Count Result 335 k/mm3 (150-375); Red Blood Count 4.14 M/mm3 (4.2-5.4); Red Cell Distribution Width 14.2 % (11.5-14.5); White Blood Count 4.7 K/mm3 (4.5-10.0)
--- NOTE | 2022-09-18 23:26 | PC.NURSE ---
pt sts that she hasn't had a bm in 14 days but sts, I had one tonight here in the bathroom. pt is axox4, abc are wnl nad. c/c abd lateral that is non radiating. pt is very needy. IV placed by US
[2022-09-18 23:33] VITALS: O2SAT 100
[2022-09-18 23:46] VITALS: BP 133/72; PULSE 64; RESP 18; O2SAT 99
[2022-09-19] VITALS (11 sets, daily range): BP systolic 136–154; BP diastolic 78–110; PULSE 84; RESP 16–18; TEMP 37.1; O2SAT 95–100
[2022-09-19 00:08] LABS: Alanine Aminotransferase 20 U/L (6-35); Alkaline Phosphatase 77 U/L (38-126); Anion Gap 8 mmol/L (8-16); Aspartate Amino Transferase 24 U/L (14-36); Bilirubin,Total 0.5 mg/dL (0.2-1.3); Blood Urea Nitrogen 8 mg/dL (7-17); Calcium 9.5 mg/dL (8.4-10.2); Carbon Dioxide 20 mmol/L (22-30); Chloride 104 mmol/L (98-107); Estimated CRCL calculation 47 ml/min; Estimated Glomerular Filt Rate 49; Glucose 97 mg/dL (65-110); Lipase 31 U/L (23-300); Potassium 4.6 mmol/L (3.4-5.0); Sodium 132 mmol/L (137-145)
--- NOTE | 2022-09-19 00:38 | ED.GENADULT ---
HPI - General Adult General Chief complaint: Abdominal Pain Stated complaint: constipation, abd pain Time Seen by Provider: 09/18/22 23:31 History of Present Illness HPI narrative: This is a 72-year-old female with history of chronic constipation presenting with abdominal pain. Patient says last time she had a normal bowel movement was 14 days ago. She says that she is having diffuse crampy abdominal pain has been going on for several days. It comes and goes. She says she has had pain like this in the past there are no alleviating or exacerbating symptoms. She has been taking multiple doses of MiraLax today and attempt to move her bowels. She has had 2 small bowel movements and is still passing gas. No nausea or vomiting. Patient recently had an EGD that showed peptic ulcer disease. Patient has not brought up her constipation with her GI doctor. Related Data Home Medications Medication Instructions Recorded Confirmed fluticasone propionate 50 2 spray intranasal BID 08/25/19 09/14/22 mcg/actuation nasal spray,suspension cholecalciferol (vitamin D3) 50 50 mcg PO DAILY 10/28/19 09/14/22 mcg (2,000 unit) capsule (Vitamin D3) duloxetine 60 mg capsule,delayed 60 mg PO DAILY 10/28/19 09/14/22 release propranolol 20 mg tablet 20 mg PO Q12H 11/29/21 09/14/22 quetiapine 200 mg tablet 300 mg PO HS 07/04/22 09/14/22 trazodone 150 mg tablet 100 mg PO BID 07/04/22 09/14/22 oxybutynin chloride 5 mg tablet See Rx Instructions PO DAILY 07/07/22 09/14/22 Allergies Allergy/AdvReac Type Severity Reaction Status Date / Time midazolam [From Versed] Allergy Swelling Verified 09/14/22 11:59 of Lip/Tongue/Throat PMFSH Past Medical History Medical History Breast cancer Cataract Chicken pox Claustrophobia Depression with anxiety Duodenal ulcer Essential hypertension Gastric ulcer Herniated disc History of TMJ disorder HLD (hyperlipidemia) Lymphedema Measles Morbid obesity due to excess calories Neuropathy Obesity Osteoarthritis Right ankle sprain Tendonitis Vomiting (bilious) following gastrointestinal surgery Surgical History Surgical History H/O adenoidectomy History of salpingo-oophorectomy Hx of cholecystectomy Hx of lumpectomy lt breast and lymph nodes Hx of tonsillectomy S/P shoulder surgery Family History Family History Father Acute myocardial infarction Sibling Patient's brother is in good health Sibling Breast cancer Mother Myocardial infarction Other Family history of hypercholesterolemia Social History Social History Smoking status: Never smoker Tobacco type: cigarettes Second hand tobacco smoke exposure: No Alcohol intake: never Substance use: never Substance use type: does not use Lack of Transportation: No Lack of Food: Never True Current Housing: I Have Housing Concerned About Future Housing: No Difficulty Paying Gas/Electric Bills: No Difficulty Paying for Meds: No Currently Unemployed: No Education: High School Diploma/GED Difficulty w/ Childcare or Family Care: No Living arrangements: with family Occupation/Education: retired Gender identity (if verbalized by the patient): Female Sexual Orientation (if Verbalized by the Patient): Straight or Heterosexual Spiritual care concerns: No Exam Narrative: APPEARANCE: No apparent distress. Head: atraumatic. EYES: EOMI, NOSE: Atraumatic NECK: Trachea midline RESPIRATORY: No increased rate of breathing, clear to auscultation CARDIOVASCULAR: RRR, ABDOMINAL: obese, no guarding or rebound. Patient reports mild tenderness MUSCULOSKELETAl: No obvious deformities NEURO: Alert. Moving 4/4 extremities SKIN:: Warm, dry. Normal color PSYCHIATRIC: Normal affect
[2022-09-19] MEDS: SODIUM CHLORIDE 0.9% IV 1,000 ML 999 ML IV CONT (00:52)
[2022-09-19] MEDS: BISACODYL 10 MG SUPPOSITORY RECTAL (01:09)
[2022-09-19] MEDS: HYDROcodone/acetaminophen (*CRX) 5-325 MG TABLET 1 TAB PO (06:12)
--- NOTE | 2022-09-19 06:57 | PC.NURSE ---
iv removed with cather intact
--- NOTE | 2022-09-29 01:38 | PC.NURSE ---
LATE ENTRY This note is being entered to document information to the patient's record. The following information was omitted on [09/20/22], by [cd]. iv stopped at 01:43
--- NOTE | 2022-09-29 01:39 | PC.NURSE ---
LATE ENTRY This note is being entered to document information to the patient's record. The following information was omitted on [09/19/22], by [cd]. iv stopped at 01:43
--- NOTE | 2022-09-29 01:42 | PC.NURSE ---
LATE ENTRY This note is being entered to document information to the patient's record. The following information was omitted on [09/20/22], by [cd]. iv stopped at 02:43
== END 2022-09-19 07:01 | disposition home or self-care (01) ==
PROVIDERS: Physician Assistant; Emergency Provider Emergency Medicine; PCP Internal Medicine
DX: K59.00 Constipation, unspecified (principal); I10 Essential (primary) hypertension; E78.5 Hyperlipidemia, unspecified; I89.0 Lymphedema, not elsewhere classified; E66.01 Morbid (severe) obesity due to excess calories; Z68.37 Body mass index [BMI] 37.0-37.9, adult; M19.90 Unspecified osteoarthritis, unspecified site; F41.8 Other specified anxiety disorders; Z85.3 Personal history of malignant neoplasm of breast; Z90.79 Acquired absence of other genital organ(s); Z90.49 Acquired absence of other specified parts of digestive tract
CPT/HCPCS: 36415; 74177; 80053; 81003; 83690; 85025; 96360; 99284; A9270; J7030; Q9967

== ENCOUNTER 2022-10-10 14:33 | Outpatient (CLI) | payer MEDICARE, SELFPAY ==
--- NOTE | ~2022-10-10 | XR_ITS ---
XR abdomen/kub 1V 10/10/2022 14:50 Indication: Flank pain Procedure: KUB Comparison: No prior studies for comparison. Findings: Bowel gas pattern is nonobstructive. There is a large amount of retained fecal material in the colon. There are cholecystectomy clips. No abnormal calcifications overlie the expected location of the kidneys. Lung bases are unremarkable. Moderate lumbar spondylosis with dextroscoliosis. No acu te osseous abnormality. Impression: 1: No acute abdominal abnormality. Reviewed, dictated and finalized at location A. Impression: 1: No acute abdominal abnormality.
== END 2022-10-10 14:34 | disposition home or self-care (01) ==
PROVIDERS: PCP Internal Medicine; Visit Provider Nurse Practitioner Adult Health
DX: R10.9 Unspecified abdominal pain (principal)
CPT/HCPCS: 74018

== ENCOUNTER 2022-10-12 14:36 | Outpatient (CLI) | payer MEDICARE, SELFPAY ==
--- NOTE | ~2022-10-12 | CT_ITS ---
EXAMINATION: CT abdomen pelvis wo con DATE: 10/12/2022 15:03 INDICATION: Flank pain for one month TECHNIQUE: Computed tomography (CT) of the abdomen and pelvis was performed without intravenous contr ast. Automated exposure control and iterative reconstruction technique were employed. Exam dose: 143 7.07 mGy-cm total exam DLP. COMPARISON: 09/2022 CT abdomen pelvis with IV contrast material FINDINGS: The lung bases are clear of infiltrate or consolidation. There is mild discoid atelectasis or scarring in the right lower lobe. Normal heart size. No pericardial or pleural effusion. Status post cholecystectomy. The liver, spleen, pancreas, adrenal glands and kidneys are unremarkable on this limited noncontrast examination. No bile duct or pancreatic duct dilatation. No urinary tract calculus or hydroureteronephrosis. Moderate diffuse thickening of the urinary bladde r wall which may be due to underdistention; cystitis is not excluded. The uterus and adnexal areas are unremarkable. Normal caliber of the abdominal aorta. No intraperitoneal or retroperitoneal or pelvic mass lesion or adenopathy or ascites. There is a prominent of fecal material in the colon with liquid stool causing air-fluid levels in the transverse and right colon. No bowel wall thickening, pneumatosis or intraperitoneal free air. Small fat-containing periumbilical hernia and very small fat-containing umbilical hernia. Diffuse idiopathic skeletal hyperostosis of the thoracic spine. Chronic T12 fracture. Severe degenerative disease at L3-4, moderately severe degenerative disc disease and grade 1 anteroli sthesis at L4-5. Prominent degenerative change of the apophyseal joints of the lumbar spine. IMPRESSION: No urinary tract calculus or hydroureteronephrosis Moderate diffuse thickening and urinary bladder wall which may be due to underdistention; cystitis is not excluded Liquid stool in the colon; no bowel obstruction, bowel wall thickening or pneumoperitoneum Degenerative changes of the thoracic and lumbar spine Chronic T12 fracture Reviewed, dictated and finalized at Location A. Reviewed, dictated and finalized at location A. IMPRESSION: No urinary tract calculus or hydroureteronephrosis Moderate diffuse thickening and urinary bladder wall which may be due to underd istention; cystitis is not excluded Liquid stool in the colon; no bowel obstruction, bowel wall thickening or pneum operitoneum Degenerative changes of the thoracic and lumbar spine Chronic T12 fracture
== END 2022-10-12 14:37 | disposition home or self-care (01) ==
PROVIDERS: PCP Internal Medicine; Visit Provider Nurse Practitioner Adult Health
DX: R10.9 Unspecified abdominal pain (principal)
CPT/HCPCS: 74176

== ENCOUNTER 2022-11-23 08:18 | Day surgery (SDC) | payer MEDICARE, SELFPAY ==
[2022-09-27 11:42] VITALS: BMI 37.8
--- NOTE | 2022-11-22 12:07 | PM.HPGS ---
History of Present Illness History of Present Illness Consent: Risks, benefits, and alternatives have been discussed and questions answered. Patient agrees to proceed with procedure. Chief complaint: Duodenal & Gastric Ulcer, Anemia Narrative: Francia Poon is a 72 year old female referred for follow-up of ulcers and for anemia. Two months ago she was vomiting found to have 15 mm gastric ulcer and a smaller duodenal ulcer. Review of Systems Review of Systems: All systems reviewed & are unremarkable except as noted in HPI and below PMFSH Past Medical History Medical History Breast cancer Cataract Chicken pox Claustrophobia Depression with anxiety Duodenal ulcer Essential hypertension Gastric ulcer Herniated disc History of TMJ disorder HLD (hyperlipidemia) Lymphedema Measles Morbid obesity due to excess calories Neuropathy Obesity Osteoarthritis Right ankle sprain Tendonitis Vomiting (bilious) following gastrointestinal surgery Surgical History Surgical History H/O adenoidectomy History of salpingo-oophorectomy Hx of cholecystectomy Hx of lumpectomy lt breast and lymph nodes Hx of tonsillectomy S/P shoulder surgery Family History Family History Father Acute myocardial infarction Sibling Patient's brother is in good health Sibling Breast cancer Mother Myocardial infarction Other Family history of hypercholesterolemia Social History Social History Smoking status: Never smoker Second hand tobacco smoke exposure: No Alcohol intake: never Substance use: never Substance use type: does not use Lack of Transportation: No Lack of Food: Never True Current Housing: I Have Housing Concerned About Future Housing: No Difficulty Paying Gas/Electric Bills: No Difficulty Paying for Meds: No Currently Unemployed: No Education: High School Diploma/GED Difficulty w/ Childcare or Family Care: No Living arrangements: with family Additional living arrangements comments: Occupation/Education: retired Gender identity (if verbalized by the patient): Female Sexual Orientation (if Verbalized by the Patient): Straight or Heterosexual Spiritual care concerns: No Meds Home Medications and Allergies Home Medications Medication Instructions Recorded Confirmed Type fluticasone propionate 50 2 spray intranasal BID 08/25/19 11/07/22 History mcg/actuation nasal spray,suspension cholecalciferol (vitamin D3) 50 50 mcg PO DAILY 10/28/19 11/07/22 History mcg (2,000 unit) capsule (Vitamin D3) duloxetine 60 mg capsule,delayed 60 mg PO DAILY 10/28/19 11/07/22 History release propranolol 20 mg tablet 20 mg PO Q12H 11/29/21 11/07/22 History atorvastatin 20 mg tablet 20 mg PO DAILY #90 tabs 04/14/22 11/07/22 Rx quetiapine 200 mg tablet 300 mg PO HS 07/04/22 11/07/22 History trazodone 150 mg tablet 200 mg PO BID 07/04/22 11/07/22 History oxybutynin chloride 5 mg tablet 15 mg PO DAILY 07/07/22 11/07/22 History docusate calcium 240 mg capsule 240 mg PO DAILY #30 caps 09/19/22 11/07/22 Rx sennosides 8.6 mg tablet (Natural 8.6 mg PO DAILY #30 tabs 09/19/22 11/07/22 Rx Senna Laxative) sumatriptan succinate 100 mg tablet See Rx Instructions .Route 09/22/22 11/07/22 Rx .COMPLEX #9 tabs hydroxyzine HCl 10 mg/5 mL oral 10 mg PO TID 09/26/22 11/07/22 History solution alendronate 70 mg tablet See Rx Instructions .Route 09/28/22 11/07/22 Rx .COMPLEX #12 tabs omeprazole 40 mg capsule,delayed 40 mg PO DAILY #90 caps 10/02/22 11/07/22 Rx release gabapentin 300 mg capsule See Rx Instructions .Route 10/16/22 11/07/22 Rx .COMPLEX #180 caps lisinopril 40 mg tablet 40 mg PO DAILY 11/07/22 11/07/22 History Allergies Allergy/AdvReac Type Sever
--- NOTE | 2022-11-23 07:24 | WPDANESEPPF ---
Anes - Initial Pre Proc Eval Procedure: Operation Date: 11/23/22 09:30 Proposed Procedures p Esophagogastroduodenoscopy - Geo Hedrick MD s Diagnostic Colonoscopy - Geo Hedrick MD Date/Time: 11/23/22 07:24 Surgeon: Geo Hedrick MD Pre Op Diagnosis: Duodenal & Gastric Ulcer, Anemia Patient Data Age: 72 Gender: F Height: 1.63 m Weight: 99.79 kg Allergies Allergy/AdvReac Type Severity Reaction Status Date / Time midazolam [From Versed] Allergy Swelling Verified 11/23/22 09:02 of Lip/Tongue/Throat Home Medications Medication Instructions Recorded Confirmed Type fluticasone propionate 50 2 spray intranasal BID 08/25/19 11/23/22 History mcg/actuation nasal spray,suspension cholecalciferol (vitamin D3) 50 50 mcg PO DAILY 10/28/19 11/23/22 History mcg (2,000 unit) capsule (Vitamin D3) duloxetine 60 mg capsule,delayed 60 mg PO DAILY 10/28/19 11/23/22 History release propranolol 20 mg tablet 20 mg PO Q12H 11/29/21 11/23/22 History quetiapine 200 mg tablet 300 mg PO HS 07/04/22 11/23/22 History trazodone 150 mg tablet 200 mg PO BID 07/04/22 11/23/22 History oxybutynin chloride 5 mg tablet 15 mg PO DAILY 07/07/22 11/23/22 History docusate calcium 240 mg capsule 240 mg PO DAILY #30 caps 09/19/22 11/23/22 Rx sennosides 8.6 mg tablet (Natural 8.6 mg PO DAILY #30 tabs 09/19/22 11/23/22 Rx Senna Laxative) sumatriptan succinate 100 mg tablet See Rx Instructions .Route 09/22/22 11/23/22 Rx .COMPLEX #9 tabs hydroxyzine HCl 10 mg/5 mL oral 10 mg PO TID 09/26/22 11/23/22 History solution alendronate 70 mg tablet See Rx Instructions .Route 09/28/22 11/23/22 Rx .COMPLEX #12 tabs omeprazole 40 mg capsule,delayed 40 mg PO DAILY #90 caps 10/02/22 11/23/22 Rx release gabapentin 300 mg capsule See Rx Instructions .Route 10/16/22 11/23/22 Rx .COMPLEX #180 caps lisinopril 40 mg tablet 40 mg PO DAILY 11/07/22 11/23/22 History atorvastatin 20 mg tablet 20 mg PO DAILY #90 tabs 11/23/22 Rx Patient hx anesthesia problems: none Family hx anesthesia problems: none Results Review: All pre-operative results and documents have been reviewed as part of the pre-operative evaluation. [facility] Past Medical History Medical History Breast cancer Cataract Chicken pox Claustrophobia Depression with anxiety Duodenal ulcer Essential hypertension Gastric ulcer Herniated disc History of TMJ disorder HLD (hyperlipidemia) Lymphedema Measles Morbid obesity due to excess calories Neuropathy Obesity Osteoarthritis Right ankle sprain Tendonitis Vomiting (bilious) following gastrointestinal surgery Surgical History Surgical History H/O adenoidectomy History of salpingo-oophorectomy Hx of cholecystectomy Hx of lumpectomy lt breast and lymph nodes Hx of tonsillectomy S/P shoulder surgery Family History Family History Father Acute myocardial infarction Sibling Patient's brother is in good health Sibling Breast cancer Mother Myocardial infarction Other Family history of hypercholesterolemia Social History Social History Smoking status: Never smoker Second hand tobacco smoke exposure: No Alcohol intake: never Substance use: never Substance use type: does not use Lack of Transportation: No Lack of Food: Never True Current Housing: I Have Housing Concerned About Future Housing: No Difficulty Paying Gas/Electric Bills: No Difficulty Paying for Meds: No Currently Unemployed: No Education: High School Diploma/GED Difficulty w/ Childcare or Family Care: No Living arrangements: with family Additional living arrangements comments: Occupation/Education: retired Gender identity (if verbalized by the patient): Femal
[2022-11-23 08:50] VITALS: BP 117/85; PULSE 77; RESP 16; TEMP 36.4; O2SAT 95
[2022-11-23] MEDS: LACTATED RINGERS 1,000 ML 150 ML IV CONT (09:16)
[2022-11-23 10:31] VITALS: BP 92/61; PULSE 69; RESP 20; O2SAT 93
[2022-11-23 10:41] VITALS: BP 94/69; PULSE 69; RESP 20; O2SAT 98
[2022-11-23 10:51] VITALS: BP 123/84; PULSE 69; RESP 20; O2SAT 98
--- NOTE | 2022-11-23 13:07 | WPDANESPN ---
Anes - Prog Note Post-Op Date/Time: 11/23/22 13:07 Cardiovascular status: normal Respiratory status: normal Airway patency: baseline Mental status: baseline Post-Op hydration status: normal Vital Signs: Last Vital Signs Temp 36.4 C 11/23/22 08:50 Pulse 69 11/23/22 10:51 Resp 20 11/23/22 10:51 BP 123/84 11/23/22 10:51 Pulse Ox 98 11/23/22 10:51 O2 Del Method Room Air 11/23/22 10:51 Pain Score (VAS): 0 I/O: Intake & Output 11/22/22 11/23/22 11/23/22 23:59 07:59 15:59 Intake Total 200 Balance 200 Post-procedural complaints: none Patient Feedback: Patient satisfied with anesthetic care. Other Findings: Patient vital signs back to baseline. Patient denies nausea and vomiting. Patient's pain under control. Patient OK for discharge.
== END 2022-11-23 11:25 | disposition home or self-care (01) ==
PROVIDERS: PCP Internal Medicine; Visit Provider Internal Medicine Gastroenterology
PROC: 0DJ08ZZ Inspection of Upper Intestinal Tract, Via Natural or Artificial Opening Endoscopic (ICD-10-PCS; CPT 43235; principal; 2022-11-23 09:30)
PROC: 0DJD8ZZ Inspection of Lower Intestinal Tract, Via Natural or Artificial Opening Endoscopic (ICD-10-PCS; CPT 45378; 2022-11-23 09:30)
DX: D64.9 Anemia, unspecified (principal); K57.30 Diverticulosis of large intestine without perforation or abscess without bleeding; K64.8 Other hemorrhoids
CPT/HCPCS: 45378

== ENCOUNTER 2023-01-31 14:10 | Outpatient (CLI) | payer MEDICARE, SELFPAY ==
--- NOTE | ~2023-01-31 | MM_ITS ---
EXAMINATION: MM screening [facility] w michelle HISTORY: Screening mammogram, history of left breast cancer TECHNIQUE: Craniocaudal and mediolateral oblique 3-D tomosynthesis images were obtained and synthetic 2-D images were generated. CAD analysis was submitted and interpreted. COMPARISON: 08/01/2022, 01/25/2022, 02/24/2021, 01/18/2021 BREAST PARENCHYMAL COMPOSITION: There are scattered areas of fibroglandular density. FINDINGS: There has been interval biopsy of the previously described right breast architectural disto rtion. Stable lumpectomy changes are noted in the upper outer quadrant of the left breast. No suspici ous mass or calcification are identified in either breast to suggest malignancy. There has been no rankin spicious interval change. IMPRESSION: 1. No mammographic evidence of malignancy. 2. Recommend routine screening mammography in one year. Of note, patient is due for sonographic follo w-up of a probably benign right breast mass. BI-RADS Category 2: Benign finding(s). Reviewed, dictated and finalized at location A. S OFFICER IMPRESSION: 1. No mammographic evidence of malignancy. 2. Recommend routine screening mammography in one year. Of note, patient is due for sonographic follow-up of a probably benign right breast mass. BI-RADS Category 2: Benign finding(s).
== END 2023-01-31 14:11 | disposition home or self-care (01) ==
LOC: ANHIMG 14:11
PROVIDERS: PCP Internal Medicine; Visit Provider Obstetrics & Gynecology
DX: Z12.31 Encounter for screening mammogram for malignant neoplasm of breast (principal)
CPT/HCPCS: 77063; 77067

== ENCOUNTER 2023-03-27 14:51 | Outpatient (CLI) | payer MEDICARE, SELFPAY ==
[2023-03-27 19:19] LABS: Anion Gap 5 mmol/L (8-16); Blood Urea Nitrogen 16 mg/dL (7-17); Calcium 10.4 mg/dL (8.4-10.2); Carbon Dioxide 32 mmol/L (22-30); Chloride 101 mmol/L (98-107); Estimated Glomerular Filt Rate > 60; Glucose 85 mg/dL (65-110); Potassium 5.5 mmol/L (3.4-5.0); Sodium 138 mmol/L (137-145)
== END 2023-03-27 14:52 | disposition home or self-care (01) ==
LOC: ANHGOSHLAB 14:53
PROVIDERS: PCP Internal Medicine; Visit Provider Clinical Nurse Specialist
DX: I10 Essential (primary) hypertension (principal)
CPT/HCPCS: 36415; 80048

== ENCOUNTER 2023-04-10 15:48 | Outpatient (CLI) | payer MEDICARE, SELFPAY ==
[2023-04-10 20:32] LABS: Anion Gap 8 mmol/L (8-16); Blood Urea Nitrogen 21 mg/dL (7-17); Carbon Dioxide 27 mmol/L (22-30); Chloride 104 mmol/L (98-107); Estimated Glomerular Filt Rate > 60; Glucose 95 mg/dL (65-110); Potassium 4.4 mmol/L (3.4-5.0); Sodium 139 mmol/L (137-145)
== END 2023-04-10 15:49 | disposition home or self-care (01) ==
LOC: ANHGOSHLAB 15:50
PROVIDERS: PCP Internal Medicine; Visit Provider Clinical Nurse Specialist
DX: E87.1 Hypo-osmolality and hyponatremia (principal)
CPT/HCPCS: 36415; 80048

== ENCOUNTER 2023-09-12 13:35 | Outpatient (CLI) | payer MEDICARE, SELFPAY ==
[2023-09-12 19:25] LABS: Basophils Absolute Auto 0.1 K/mm3 (0.0-0.1); Basophils Percent Auto 0.9 % (0.2-1.2); Eosinophils Absolute Auto 0.3 K/mm3 (0-0.3); Hemoglobin 13.1 g/dL (12.0-15.0); Immature Granulocyte Absolute 0.02 K/mm3 (0.00-0.031); Immature Granulocyte Percent A 0.3 % (0-0.5); Lymphocytes Absolute Auto 1.84 K/mm3 (0.9-3.2); Lymphocytes Percent Auto 28.6 % (18.3-44.2); Mean Corpuscular Hemoglobin 31.2 pg (26-34); Mean Corpuscular Volume 97.6 fl (80-100); Mean Platelet Volume 8.9 fl (7.4-10.4); Monocytes Absolute Auto 0.4 K/mm3 (0.1-0.6); Monocytes Percent Auto 5.9 % (2.6-8.5); Neutrophils Absolute Auto 3.8 K/mm3 (1.3-6.7); Neutrophils Percent Auto 59.3 % (45.5-73.1); Platelet Count Result 271 k/mm3 (150-375); Red Cell Distribution Width 13.2 % (11.5-14.5); White Blood Count 6.4 K/mm3 (4.5-10.0)
[2023-09-12 19:27] LABS: Alanine Aminotransferase 17 U/L (6-35); Albumin Level 4.6 g/dL (3.5-5.1); Alkaline Phosphatase 62 U/L (38-126); Anion Gap 7 mmol/L (4-12); Aspartate Amino Transferase 34 U/L (14-36); Bilirubin,Total 0.5 mg/dL (0.2-1.3); Blood Urea Nitrogen 17 mg/dL (7-17); Calcium 10.8 mg/dL (8.4-10.2); Carbon Dioxide 30 mmol/L (22-30); Chloride 103 mmol/L (98-107); Estimated Glomerular Filt Rate 54; Glucose 94 mg/dL (65-110); Potassium 4.8 mmol/L (3.4-5.0); Sodium 140 mmol/L (137-145)
[2023-09-12 19:54] LABS: Hemoglobin A1C 5.1 % (<5.7)
[2023-09-13 10:32] LABS: Homocysteine 15.8 umol/L (<10.4)
[2023-09-15 19:38] LABS: Vitamin B1 22 nmol/L (8-30)
[2023-09-15 21:19] LABS: Vitamin B6 8.7 ng/mL (2.1-21.7)
[2023-09-16 03:19] LABS: Methylmalonic Acid 156 nmol/L (69-390)
[2023-09-16 20:17] LABS: Immunofixation, Serum Normal pattern.
== END 2023-09-12 13:36 | disposition home or self-care (01) ==
PROVIDERS: Student in an Organized Health Care Education/Training Program; PCP Internal Medicine; Visit Provider Nurse Practitioner
DX: R61 Generalized hyperhidrosis (principal); E87.1 Hypo-osmolality and hyponatremia; R73.9 Hyperglycemia, unspecified; G62.9 Polyneuropathy, unspecified
CPT/HCPCS: 36415; 80053; 82607; 82746; 83036; 83090; 83921; 84207; 84425; 84443; 85025; 86038; 86039; 86334; 86335

== ENCOUNTER 2023-09-28 14:30 | Outpatient (CLI) | payer MEDICARE, SELFPAY ==
--- NOTE | ~2023-09-28 | DEXA_ITS ---
Bone Density Report Name: LYNDSEY SHEA Age: 73 Sex: Female Ethnicity: White Date of : 1950 Indication: postmenopausal; screening for osteoporosis; height loss; cancer; hysterectomy; Referring Provider: PRANAV HOANG Study: Bone densitometry was performed. Exam Date: September 28, 2023 Accession number: [id number] Bone Density: Region BMD T-score Z-score Classification AP Spine(L1-L4) 1.158 1.0 3.3 Normal Femoral Neck (Left) 0.614 -2.1 -0.1 Osteopenia Total Hip (Left) 0.918 -0.2 1.5 Normal Femoral Neck (Right) 0.682 -1.5 0.5 Osteopenia Total Hip (Right) 0.873 -0.6 1.1 Normal Total Hip Mean 0.896 -0.4 1.3 Normal World Health Organization criteria for BMD impression classify patients as: Normal (T-score at or above -1.0), Osteopenia (T-score between -1.0 and -2.5), or Osteoporosis (T-score at or below -2.5). 10-year Fracture Risk(1): Major Osteoporotic Fracture 11% Hip Fracture 2.5% Reported Risk Factors: [place] (), Neck BMD=0.614, BMI=41.8 (1) FRAX(R) Version 3.08. Fracture probability calculated for an untreated patient. Fracture probability may be lower if the patient has received treatment. Clinical Information Provided by Patient: Has used the following medications: Vitamin D Has the following medical conditions: Cancer, Hysterectomy Patient maximum height was 64 Menopause Age: 51 No regular weight bearing exercise Onset of menses at age 13 Number of children 1 Impression: The patient has low bone mass, based on the Left Femoral Neck T-score. The patient has an estimated ten-year risk of hip fracture of 2.5% and an estimated ten-year risk of major fracture of 11%, based on the WHO FRAX algorithm. Discussion: BONE DENSITY IS LOW AT ONE OR MORE SKELETAL SITES. This patient's lowest T-score is low at one or more skeletal sites. It meets the World Health Organization's (WHO) criteria for ?low bone mass? (T-score between -1.0 and -2.5). The patient's 10-year risk of fracture as calculated by FRAX is less than the threshold where pharmacological therapy is recommended by the National Osteoporosis Foundation (NOF). However, all treatment decisions require clinical judgment and consideration of individual patient factors, including patient preferences, comorbidities, previous drug use, risk factors not captured in the FRAX model (e.g., frailty, falls, vitamin D deficiency, increased bone turnover, interval significant decline in bone density) and possible under or overestimation of fracture risk by FRAX. The patient should follow a healthful lifestyle (good nutrition with adequate calcium and vitamin D, and appropriate weight-bearing exercise). Follow-Up: Consider repeating this study in 2 to 3 years to reassess this patient's status, or sooner if there is some n
== END 2023-09-28 14:31 | disposition home or self-care (01) ==
PROVIDERS: PCP Internal Medicine; Visit Provider Internal Medicine
DX: M81.0 Age-related osteoporosis without current pathological fracture (principal); M85.852 Other specified disorders of bone density and structure, left thigh; M85.851 Other specified disorders of bone density and structure, right thigh
CPT/HCPCS: 77080

== ENCOUNTER 2023-12-04 14:31 | Outpatient (NON) | payer MEDICARE, SELFPAY | END 2023-12-04 14:32 | disposition home or self-care (01) | LOC: ANHGOSHLAB 14:34 | PROVIDERS: PCP Internal Medicine; Visit Provider Nurse Practitioner | DX: R35.0 Frequency of micturition (principal); N39.0 Urinary tract infection, site not specified; R30.0 Dysuria | CPT/HCPCS: 87077; 87086; 87088; 87186 ==

== ENCOUNTER 2023-12-06 15:37 | Emergency (ER) | payer MEDICARE, SELFPAY ==
--- NOTE | ~2023-12-06 | XR_ITS ---
XR foot LT min 3V Ordering provider: Negra Oro APRN History: . Twisted Lt foot 2 days ago pain laterally . Comparison: None. FINDINGS: BONES: Fracture of the base of the fifth metatarsal bone. Calcaneal spur. JOINT SPACES: Normal. No tarsal coalition. SOFT TISSUES: Normal. IMPRESSION: No acute osseous abnormality left foot. Fracture at the base of the fifth metatarsal bone. Reviewed, dictated and finalized at location A. IMPRESSION: No acute osseous abnormality left foot. Fracture at the base of the fifth metat arsal bone.
--- NOTE | 2023-12-06 15:50 | ED.LOWEXIN ---
HPI - Extremity Injury (Lower) General Chief Complaint: Extremity Injury, Lower Stated Complaint: Injured Left Foot Source: patient Mode of arrival: wheelchair Limitations: no limitations History of Present Illness HPI Narrative: 73-year-old female with hx osteoporosis presented for c/o left foot pain, swelling and bruising for 2 days after injury. States she was just standing in her kitchen when she twisted her foot. Endorses neuropathy to the feet, but says this pain is worse. Has taken 'headache medicine' for pain. Pain is mostly to outer aspect of the foot. Has been using her wheelchair due to pain with weight bearing. Related Data Home Medications Medication Instructions Recorded Confirmed fluticasone propionate 50 2 spray intranasal BID 08/25/19 12/06/23 mcg/actuation nasal spray,suspension cholecalciferol (vitamin D3) 50 50 mcg PO DAILY 10/28/19 12/06/23 mcg (2,000 unit) capsule (Vitamin D3) duloxetine 60 mg capsule,delayed 60 mg PO DAILY 10/28/19 12/06/23 release quetiapine 200 mg tablet 300 mg PO HS 07/04/22 12/06/23 trazodone 150 mg tablet 200 mg PO BID 07/04/22 12/06/23 propranolol 20 mg tablet 20 mg PO ONCE 01/17/23 12/06/23 hydroxyzine HCl 10 mg/5 mL oral 10 mg PO BID 12/04/23 12/06/23 solution vitamin B complex 1 tablet PO DAILY 12/04/23 12/06/23 Allergies Allergy/AdvReac Type Severity Reaction Status Date / Time midazolam [From Versed] Allergy Swelling Verified 12/04/23 13:49 of Lip/Tongue/Throat Review of Systems Review of Systems: CONSTITUTIONAL: Denies body aches, fever, chills CARDIOVASCULAR: Denies chest pain, palpitations, or edema. RESPIRATORY: Denies cough or dyspnea. GASTROINTESTINAL: Denies abdominal pain, nausea, vomiting, or diarrhea. SKIN: Denies rash MUSCULOSKELETAL: Reports left foot pain NEUROLOGIC: Denies headache, numbness, tingling, or weakness. All systems reviewed & are unremarkable except as noted in HPI and below PMFSH Past Medical History Medical History Bacterial sinusitis Breast cancer Cataract Chicken pox Claustrophobia Depression with anxiety Duodenal ulcer Essential hypertension Excessive cerumen in both ear canals Gastric ulcer Herniated disc History of TMJ disorder HLD (hyperlipidemia) Hospital discharge follow-up Impacted cerumen Lymphedema Measles Morbid obesity due to excess calories Neuropathy Obesity Osteoarthritis Right ankle sprain Tendonitis Urinary tract infection Vomiting (bilious) following gastrointestinal surgery Surgical History Surgical History H/O adenoidectomy History of salpingo-oophorectomy Hx of cholecystectomy Hx of lumpectomy lt breast and lymph nodes Hx of tonsillectomy S/P shoulder surgery Family History Family History Father Acute myocardial infarction Sibling Patient's brother is in good health Sibling Breast cancer Mother Myocardial infarction Other Family history of hypercholesterolemia Social History Social History Smoking status: Never smoker Second hand tobacco smoke exposure: No Alcohol intake: never Substance use: never Substance use type: does not use Do You Feel Safe in your Home?: Yes Lack of Transportation: No Lack of Food: Never True Current Housing: I Have Housing Concerned About Future Housing: No Difficulty Paying Gas/Electric Bills: No Difficulty Paying for Meds: No Currently Unemployed: No Education: High School Diploma/GED Difficulty w/ Childcare or Family Care: No Living arrangements: with family Additional living arrangements comments: Occupation/Education: retired Gender identity (if verbalized by the patient): Female Sexual Orientation (if Verbalized by the Patient): Straight or Heterose
[2023-12-06 15:51] VITALS: BP 130/97; PULSE 84; RESP 16; TEMP 37; O2SAT 93
== END 2023-12-06 17:03 | disposition home or self-care (01) ==
PROVIDERS: Emergency Provider Nurse Practitioner Family; PCP Internal Medicine
DX: S92.352A Displaced fracture of fifth metatarsal bone, left foot, initial encounter for closed fracture (principal); X50.9XXA Other and unspecified overexertion or strenuous movements or postures, initial encounter; I10 Essential (primary) hypertension; E78.5 Hyperlipidemia, unspecified; E66.01 Morbid (severe) obesity due to excess calories; Z68.37 Body mass index [BMI] 37.0-37.9, adult; M19.90 Unspecified osteoarthritis, unspecified site; Z85.3 Personal history of malignant neoplasm of breast; G62.9 Polyneuropathy, unspecified; F41.8 Other specified anxiety disorders
CPT/HCPCS: 73630; 99213; G0463

== ENCOUNTER 2024-02-20 03:10 | Day surgery (SDC) | payer MEDICARE, SELFPAY ==
[2024-01-30 14:09] VITALS: BMI 37.0
--- NOTE | 2024-02-01 11:36 | PC.NURSE ---
pt called and updated with egd being added to her procedure on feb 19. voiced understanding.
[2024-02-20 12:47] VITALS: BP 150/92; PULSE 70; RESP 20; TEMP 36.1; O2SAT 97
--- NOTE | 2024-02-20 12:49 | P.PNAN_ITS ---
Anes - Initial Pre Proc Eval Procedure: Operation Date: 02/20/24 13:30 Proposed Procedures p Esophagogastroduodenoscopy & Colonoscopy - Wilton Aguirre MD Date/Time: 02/20/24 12:49 Surgeon: Wilton Aguirre MD Pre Op Diagnosis: Poor prep previous colonoscopy Patient Data Age: 74 Gender: F Height: 1.63 m Weight: 98 kg Allergies Allergy/AdvReac Type Severity Reaction Status Date / Time midazolam [From Versed] Allergy Swelling Verified 02/20/24 12:44 of Lip/Tongue/Throat Home Medications Medication Instructions Recorded Confirmed Type fluticasone propionate 50 2 spray intranasal DAILY 08/25/19 02/20/24 History mcg/actuation nasal spray,suspension cholecalciferol (vitamin D3) 50 125 mcg PO DAILY 10/28/19 02/20/24 History mcg (2,000 unit) capsule (Vitamin D3) duloxetine 60 mg capsule,delayed 60 mg PO DAILY 10/28/19 02/20/24 History release quetiapine 200 mg tablet 400 mg PO HS 07/04/22 02/20/24 History trazodone 150 mg tablet 200 mg PO HS 07/04/22 02/20/24 History propranolol 20 mg tablet 20 mg PO TID 01/17/23 02/20/24 History lisinopril 40 mg tablet 40 mg PO DAILY #90 tabs 10/09/23 02/20/24 Rx atorvastatin 20 mg tablet 20 mg PO DAILY #90 tabs 11/26/23 02/20/24 Rx vitamin B complex 1 tablet PO DAILY 12/04/23 02/20/24 History omeprazole 40 mg capsule,delayed 40 mg PO DAILY #90 caps 12/27/23 02/20/24 Rx release acetaminophen-caffeine 500 mg-65 1 tablet PO DAILY 01/30/24 02/20/24 History mg tablet alendronate 70 mg tablet 70 mg PO WEEKLY 01/30/24 02/20/24 History cetirizine 10 mg capsule (Zyrtec) 10 mg PO DAILY 01/30/24 02/20/24 History docusate calcium 240 mg capsule 240 mg PO DAILY 01/30/24 02/20/24 History gabapentin 300 mg capsule 600 mg PO TID 01/30/24 02/20/24 History hydroxyzine HCl 10 mg tablet 10 mg PO DAILY 01/30/24 02/20/24 History polyethylene glycol 3350 17 gram 17 g PO DAILY 01/30/24 02/20/24 History oral powder packet (Miralax) psyllium 1 packet PO DAILY 01/30/24 02/20/24 History sumatriptan succinate 100 mg tablet See Rx Instructions .Route 02/20/24 02/20/24 History .COMPLEX PRN Migraine Headache Patient hx anesthesia problems: none Family hx anesthesia problems: none Results Review: All pre-operative results and documents have been reviewed as part of the pre- operative evaluation. [facility] Past Medical History Medical History Anxiety and depression Bacterial sinusitis Breast cancer Cataract Chicken pox Claustrophobia Depression with anxiety Duodenal ulcer Essential hypertension Excessive cerumen in both ear canals Frequent urination Gastric ulcer GERD (gastroesophageal reflux disease) Herniated disc History of TMJ disorder HLD (hyperlipidemia) Hospital discharge follow-up Impacted cerumen Lymphedema Measles Morbid obesity due to excess calories Neuropathy Neuropathy involving both lower extremities Obesity Osteoarthritis Right ankle sprain Tendonitis Urinary tract infection Vomiting (bilious) following gastrointestinal surgery Weight gain Surgical History Surgical History H/O adenoidectomy History of salpingo-oophorectomy Hx of cholecystectomy Hx of lumpectomy lt breast and lymph nodes Hx of tonsillectomy S/P shoulder surgery Family History Family History Father Acute myocardial infarction Sibling Patient's brother is in good health Sibling Breast cancer Mother Myocardial infarction Other Family history of hypercholesterolemia Social History Social History Smoking status: Never smoker Second hand tobacco smoke exposure: No Alcohol intake: never Drinks per week: 4 Substance use: never Substance use type: does not use Do You Feel Safe in your Home?: Yes Lack of Transportation: No Lack of Food: Never True Current Housing: I Have Housing Concerned About Future Housing: No Difficulty Paying Gas/Electric Bills: No Difficulty Paying for Meds: No Currently Unemployed: No Education: High School Diploma/GED Difficulty w/ Childcare or Family Care: No Living arrangements: with family Additional living arrangements comments: Occupation/Education: retired Gender identity (if verbalized by the patient): Female Sexual Orientation (if Verbalized by the Patient): Straight or Heterosexual Spiritual care concerns: No Anes - Eval Final PreProcedure Day of Procedure 02/20/24 12:49 Patient weight: obese Heart: regular rate and rhythm Lungs: decreased breath sounds Airway: Mallampati scale class II Neurological: alert and oriented Last oral intake: >/= 8 hours ASA classification: III Emergent: no Anesthetic plan: proceed Anesthesia type and monitoring: general GIVS and standard monitoring Results Review: All pre-operative results and documents have been reviewed as part of the pre- operative evaluation. Informed Consent: The patient's anesthetic plan and its attendant risks and benefits were discussed with the patient/family/POA. Questions were solicited and answers provided to the satisfaction of the patient/family/POA.
--- NOTE | 2024-02-20 12:57 | PM.HPGS ---
History of Present Illness History of Present Illness Consent: Risks, benefits, and alternatives have been discussed and questions answered. Patient agrees to proceed with procedure. Chief complaint: Poor prep previous colonoscopy Narrative: Francia Poon is a 74 year old female with upper abdominal pain for few weeks, using ppi. She had gastric ulcer but last EGD 2022 without ulcer. Her colonoscopy had poor prep and recommended to repeat again. Review of Systems Review of Systems: All systems reviewed & are unremarkable except as noted in HPI and below PMFSH Past Medical History Medical History (Updated 02/20/24 @ 13:02 by Wilton Aguirre MD) Anxiety and depression Bacterial sinusitis Breast cancer Cataract Chicken pox Claustrophobia Colon cancer screening Depression with anxiety Duodenal ulcer Essential hypertension Excessive cerumen in both ear canals Frequent urination Gastric ulcer GERD (gastroesophageal reflux disease) Herniated disc History of gastric ulcer History of TMJ disorder HLD (hyperlipidemia) Hospital discharge follow-up Impacted cerumen Lymphedema Measles Morbid obesity due to excess calories Neuropathy Neuropathy involving both lower extremities Obesity Osteoarthritis Right ankle sprain Tendonitis Upper abdominal pain Urinary tract infection Vomiting (bilious) following gastrointestinal surgery Weight gain Surgical History Surgical History H/O adenoidectomy History of salpingo-oophorectomy Hx of cholecystectomy Hx of lumpectomy lt breast and lymph nodes Hx of tonsillectomy S/P shoulder surgery Family History Family History Father Acute myocardial infarction Sibling Patient's brother is in good health Sibling Breast cancer Mother Myocardial infarction Other Family history of hypercholesterolemia Social History Social History Smoking status: Never smoker Second hand tobacco smoke exposure: No Alcohol intake: never Drinks per week: 4 Substance use: never Substance use type: does not use Do You Feel Safe in your Home?: Yes Lack of Transportation: No Lack of Food: Never True Current Housing: I Have Housing Concerned About Future Housing: No Difficulty Paying Gas/Electric Bills: No Difficulty Paying for Meds: No Currently Unemployed: No Education: High School Diploma/GED Difficulty w/ Childcare or Family Care: No Living arrangements: with family Additional living arrangements comments: Occupation/Education: retired Gender identity (if verbalized by the patient): Female Sexual Orientation (if Verbalized by the Patient): Straight or Heterosexual Spiritual care concerns: No Meds Home Medications and Allergies Home Medications Medication Instructions Recorded Confirmed Type fluticasone propionate 50 2 spray intranasal DAILY 08/25/19 02/20/24 History mcg/actuation nasal spray,suspension cholecalciferol (vitamin D3) 50 125 mcg PO DAILY 10/28/19 02/20/24 History mcg (2,000 unit) capsule (Vitamin D3) duloxetine 60 mg capsule,delayed 60 mg PO DAILY 10/28/19 02/20/24 History release quetiapine 200 mg tablet 400 mg PO HS 07/04/22 02/20/24 History trazodone 150 mg tablet 200 mg PO HS 07/04/22 02/20/24 History propranolol 20 mg tablet 20 mg PO TID 01/17/23 02/20/24 History lisinopril 40 mg tablet 40 mg PO DAILY #90 tabs 10/09/23 02/20/24 Rx atorvastatin 20 mg tablet 20 mg PO DAILY #90 tabs 11/26/23 02/20/24 Rx vitamin B complex 1 tablet PO DAILY 12/04/23 02/20/24 History omeprazole 40 mg capsule,delayed 40 mg PO DAILY #90 caps 12/27/23 02/20/24 Rx release acetaminophen-caffeine 500 mg-65 1 tablet PO DAILY 01/30/24 02/20/24 History mg tablet alendronate 70 mg tablet 70 mg PO WEEKLY 01/30/24 02/20/24 History cetirizine 10 mg capsule (Zyrtec) 10 mg PO DAILY 01/30/24 02/20/24 History docusate calcium 240 mg capsule 240 mg PO DAILY 01/30/24 02/20/24 History gabapentin 300 mg capsule 600 mg PO TID 01/30/24 02/20/24 History hydroxyzine HCl 10 mg tablet 10 mg PO DAILY 01/30/24 02/20/24 History polyethylene glycol 3350 17 gram 17 g PO DAILY 01/30/24 02/20/24 History oral powder packet (Miralax) psyllium 1 packet PO DAILY 01/30/24 02/20/24 History sumatriptan succinate 100 mg tablet See Rx Instructions .Route 02/20/24 02/20/24 History .COMPLEX PRN Migraine Headache Allergies Allergy/AdvReac Type Severity Reaction Status Date / Time midazolam [From Versed] Allergy Swelling Verified 02/20/24 12:44 of Lip/Tongue/Throat Vital Signs Vital Signs - 24 hr 02/20/24 12:47 Temperature 97 F L Pulse Rate 70 Respiratory Rate 20 Blood Pressure 150/92 H Pulse Oximetry 97 Oxygen Delivery Room Air Exam Const: General: comfortable and no acute distress HENMT: Face/Nose/Sinus: Normal nares present Eyes: General: appearance normal, both eyes and all related structures Neck: Neck: no JVD Resp: Auscultation: clear to auscultation bilaterally Cardio: Rate: regular rate Rhythm: regular rhythm GI: Inspection: non-distended GI Palp: Yes Soft to palpation Skin: General skin exam: normal color Neuro: General: gait normal Speech: normal speech Extrem: General: normal to inspection Psych: Mental Status: mental status grossly normal Assessment and Plan Assessment and plan (1) History of gastric ulcer: Code(s): Z87.11 - Personal history of peptic ulcer disease Status: Acute Assessment and Plan: egd (2) Upper abdominal pain: Code(s): R10.10 - Upper abdominal pain, unspecified Status: Acute (3) Colon cancer screening: Code(s): Z12.11 - Encounter for screening for malignant neoplasm of colon Status: Acute Assessment and Plan: colonoscopy
[2024-02-20] MEDS: LACTATED RINGERS 1,000 ML 150 ML IV CONT (13:03)
--- NOTE | 2024-02-20 13:25 | SUR.OPER ---
egd ended at 1314 and colon started at 1320
[2024-02-20 13:33] VITALS: BP 112/47; PULSE 64; RESP 20; O2SAT 97
[2024-02-20 13:43] VITALS: BP 116/82; PULSE 65; RESP 20; O2SAT 100
[2024-02-20 13:53] VITALS: BP 101/76; PULSE 70; RESP 20; O2SAT 97
[2024-02-20 14:16] LABS: HPYLORIRESULT Negative (Negative)
== END 2024-02-20 14:30 | disposition home or self-care (01) ==
PROVIDERS: PCP Internal Medicine; Visit Provider Internal Medicine Gastroenterology
PROC: 0DJ08ZZ Inspection of Upper Intestinal Tract, Via Natural or Artificial Opening Endoscopic (ICD-10-PCS; CPT 43235; principal; 2024-02-20 13:30)
DX: Z12.11 Encounter for screening for malignant neoplasm of colon (principal); K63.5 Polyp of colon; K57.30 Diverticulosis of large intestine without perforation or abscess without bleeding; K29.50 Unspecified chronic gastritis without bleeding; K25.9 Gastric ulcer, unspecified as acute or chronic, without hemorrhage or perforation; I10 Essential (primary) hypertension; K21.9 Gastro-esophageal reflux disease without esophagitis; E78.5 Hyperlipidemia, unspecified; F41.8 Other specified anxiety disorders; F40.240 Claustrophobia; M19.90 Unspecified osteoarthritis, unspecified site; E66.9 Obesity, unspecified; Z68.39 Body mass index [BMI] 39.0-39.9, adult; Z79.83 Long term (current) use of bisphosphonates; Z98.890 Other specified postprocedural states; Z90.49 Acquired absence of other specified parts of digestive tract; Z87.11 Personal history of peptic ulcer disease; Z85.3 Personal history of malignant neoplasm of breast; Z80.3 Family history of malignant neoplasm of breast; Z82.49 Family history of ischemic heart disease and other diseases of the circulatory system
CPT/HCPCS: 43239; 45385; 87081; 88305; 88342; J2704; J7120

== ENCOUNTER 2024-03-07 15:28 | Outpatient (CLI) | payer MEDICARE, SELFPAY ==
--- NOTE | ~2024-03-07 | MM_ITS ---
EXAMINATION: MM screening [facility] BI w michelle HISTORY: Screening TECHNIQUE: Craniocaudal and mediolateral oblique 3-D tomosynthesis images were obtained and synthetic 2-D images were generated. CAD analysis was submitted and interpreted. COMPARISON: Comparison to multiple prior studies sequentially, with oldest reviewed study dated 04/2020. BREAST PARENCHYMAL COMPOSITION: Not dense: There are scattered areas of fibroglandular density. FINDINGS: There is distortion from previous lumpectomy in the upper outer quadrant of the left breast .. There is no evidence of suspicious mass, calcification, or architectural distortion to suggest mal ignancy in either breast. There has been no suspicious interval change. IMPRESSION: 1. No mammographic evidence of malignancy. 2. Recommend routine screening mammography in one year. BI-RADS Category 2: Benign finding(s). Reviewed, dictated and finalized at location B. CAL BILLER
== END 2024-03-07 15:29 | disposition home or self-care (01) ==
LOC: ANHIMG 15:30
PROVIDERS: PCP Internal Medicine; Visit Provider Obstetrics & Gynecology
DX: Z12.31 Encounter for screening mammogram for malignant neoplasm of breast (principal)
CPT/HCPCS: 77063; 77067

== ENCOUNTER 2024-03-26 15:29 | Outpatient (CLI) | payer MEDICARE, SELFPAY ==
[2024-03-26 19:57] LABS: Add Urine Microscopic? YES; Appearance Urine Cloudy (Clear); Bacteria Urine None Seen /hpf; Bilirubin Urine Negative (Negative); Blood Urine 1+ (Negative); Color Urine Dark Yellow (Yellow); Glucose Urine UA Negative (Negative); Ketones Urine Negative (Negative); Leukocyte Esterase Ur 2+ LEU/UL (Negative); Nitrate Urine Negative (Negative); Non Pathogenic Casts 0-2; Protein Urine 1+ mg/dL (Negative); Specific Grav Ur 1.017 (1.001-1.035); Squamous Epithelial Cell Urine None Seen /hpf (Few); Urobilinogen Urine 0.2 mg/dL (<2.0); WBC Urine >100 /hpf (0-3)
== END 2024-03-26 15:30 | disposition home or self-care (01) ==
LOC: ANHGOSHLAB 15:31
PROVIDERS: PCP Internal Medicine; Visit Provider Nurse Practitioner
DX: R30.0 Dysuria (principal)
CPT/HCPCS: 81001; 87077; 87086; 87186

== ENCOUNTER 2024-07-17 16:03 | Emergency (ER) | payer MEDICARE, SELFPAY ==
[2024-07-17 16:11] VITALS: BP 132/101; PULSE 81; RESP 16; TEMP 35.8; O2SAT 96
--- NOTE | 2024-07-17 16:27 | ED_ITS ---
HPI - Extremity Problem General Chief complaint: Extremity Problem,Nontraumatic Stated complaint: Swollen Feet Time Seen by Provider: 07/17/24 16:27 Source: patient, RN notes reviewed and old records reviewed Mode of arrival: ambulatory Limitations: no limitations History of Present Illness HPI Narrative: 74-year-old female presents to the [facility] with bilateral lower leg swelling. States has been going on for 3 weeks. Patient states that night the swelling goes down when she wakes up in the morning. Reports that she does not do much physical activity, sits in her recliner most days. Does eat processed food, salt. Related Data Home Medications ?Medication ?Instructions ?Recorded ?Confirmed ?Last Taken ?Type cholecalciferol (vitamin D3) 50 125 mcg PO DAILY 10/28/19 03/26/24 02/19/24 History mcg (2,000 unit) capsule (Vitamin D3) duloxetine 60 mg capsule,delayed 60 mg PO DAILY 10/28/19 03/26/24 02/19/24 History release quetiapine 200 mg tablet 400 mg PO HS 07/04/22 03/26/24 02/19/24 History trazodone 150 mg tablet 200 mg PO HS 07/04/22 03/26/24 02/19/24 History propranolol 20 mg tablet 20 mg PO TID 01/17/23 03/26/24 02/19/24 History vitamin B complex 1 tablet PO DAILY 12/04/23 03/26/24 02/19/24 History acetaminophen-caffeine 500 mg-65 1 tablet PO DAILY 01/30/24 07/17/24 02/19/24 History mg tablet alendronate 70 mg tablet 70 mg PO WEEKLY 01/30/24 03/26/24 02/14/24 History cetirizine 10 mg capsule (Zyrtec) 10 mg PO DAILY 01/30/24 03/26/24 02/19/24 History docusate calcium 240 mg capsule 240 mg PO DAILY 01/30/24 03/26/24 02/19/24 History hydroxyzine HCl 10 mg tablet 10 mg PO DAILY 01/30/24 03/26/24 02/19/24 History polyethylene glycol 3350 17 gram 17 g PO DAILY 01/30/24 03/26/24 02/18/24 History oral powder packet (Miralax) psyllium 1 packet PO DAILY 01/30/24 03/26/24 02/18/24 History sumatriptan succinate 100 mg tablet See Rx Instructions .Route 02/20/24 03/26/24 Unknown History .COMPLEX PRN Migraine Headache Allergies Allergy/AdvReac Type Severity Reaction Status Date / Time midazolam (From Versed) Allergy Swelling Verified 07/17/24 16:15 of Lip/Tongue/Throat Review of Systems Review of Systems: All systems reviewed & are unremarkable except as noted in HPI and below Constitutional: Constitutional: Reports no additional constitutional complaints ENT: Reports system reviewed and no additional complaints, except as documented Cardiovascular: Cardiovascular: Reports as per HPI, Denies chest pain, Reports pedal edema, Denies leg ulcers, Reports leg edema, Denies dyspnea and Denies dyspnea on exertion Respiratory: Respiratory: Reports no additional respiratory complaints, Denies chest congestion, Denies cough and Denies dyspnea Musculoskeletal: Musculoskeletal: Reports no additional musculoskeletal complaints Integumentary/Breasts: Skin/Breast: Reports system reviewed and no additional complaints, except as docu PMFSH Past Medical History Medical History (Updated 07/17/24 @ 16:50 by Marian Chavez APRN) Colon cancer screening Upper abdominal pain History of gastric ulcer Neuropathy involving both lower extremities Anxiety and depression Frequent urination GERD (gastroesophageal reflux disease) Weight gain Hospital discharge follow-up Vomiting (bilious) following gastrointestinal surgery History of TMJ disorder Bacterial sinusitis Urinary tract infection Claustrophobia Right ankle sprain Excessive cerumen in both ear canals Morbid obesity due to excess calories Essential hypertension Impacted cerumen Duodenal ulcer HLD (hyperlipidemia) Obesity Gastric ulcer Depression with anxiety Cataract Breast cancer Measles Chicken pox Neuropathy Lymphedema Herniated disc Tendonitis Osteoarthritis Surgical History Surgical History S/P shoulder surgery History of salpingo-oophorectomy Hx of lumpectomy lt breast and lymph nodes Hx of cholecystectomy H/O adenoidectomy Hx of tonsillectomy Family History Family History Father Acute myocardial infarction Sibling Patient's brother is in good health Sibling Breast cancer Mother Myocardial infarction Other Family history of hypercholesterolemia Social History Social History Smoking status: Never smoker Second hand tobacco smoke exposure: No Alcohol intake: current Drinks per week: 4 Substance use: never Substance use type: does not use Do You Feel Safe in your Home?: Yes Lack of Transportation: No Lack of Food: Never True Current Housing: I Have Housing Concerned About Future Housing: No Difficulty Paying Gas/Electric Bills: No Difficulty Paying for Meds: No Currently Unemployed: No Education: High School Diploma/GED Difficulty w/ Childcare or Family Care: No Living arrangements: with family Additional living arrangements comments: Occupation/Education: retired Gender identity (if verbalized by the patient): Female Sexual Orientation (if Verbalized by the Patient): Straight or Heterosexual Spiritual care concerns: No Comments At the time of my signature, I reviewed and agree with the nursing past medical, surgical, social, and family history. There is no relevant family history pertinent to the patient complaint. Exam Const: General: cooperative, healthy appearing, comfortable, no acute distress, well developed, alert and well nourished Nutritional Appearance: well nourished Orientation/consciousness: patient oriented x3 Limitations: no limitations HENMT: Head: normal to inspection Eyes: General: appearance normal, both eyes and all related structures Alignment and Position: alignment normal Neck: Neck: normal visual inspection, full ROM, no lymphadenopathy and no meni ngeal signs Chest: Chest palpation & inspection: normal inspection of the chest Resp: Effort & Inspection: normal respiratory effort and able to speak in complete sentences Auscultation: clear to auscultation bilaterally, no rales, no rhonchi and no wheezes Cardio: Rate: regular rate Peripheral pulses: Peripheral pulses 2+ throughout Skin: General skin exam: normal color and no rashes or lesions noted Neuro: General: patient oriented x3, gait normal, moves all extremities and no meningeal signs Cognition (Neuro): normal cognition Speech: normal speech Gait exam (Neuro): Normal gait present Extrem: General: normal to inspection, full ROM, capillary refill normal and normal gait Other: Bilateral lower leg edema, pitting, +2-3 3. No weeping, no erythema. Psych: Appearance: grossly normal and well kempt Mental Status: mental status grossly normal Speech and movement: Normal speech and movement present and Clear speech present Affect: normal affect Attitude: cooperative Course Course Level of Care: Express Care Visit Vital Signs Vital signs: Vital Signs Oxygen Delivery Room Air 07/17/24 16:09 Temperature 96.5 F L 07/17/24 16:11 Pulse Rate 81 07/17/24 16:11 Respiratory Rate 16 07/17/24 16:11 Blood Pressure 132/101 H 07/17/24 16:11 Pulse Oximetry 96 07/17/24 16:11 Oxygen Delivery Room Air 07/17/24 16:09 Reviewed MDM - Extremity (Nontraumatic) MDM Narrative Medical decision making narrative: Through joint decision making with this patient, discussed that the symptoms have been going on for 3 weeks. Improvement when legs are raised. Discussed putting the salt shaker way and not eating processed foods such as Hamburger Sturgeon. We also discussed using compression stockings Discussed in great detail signs and symptoms to proceed to the emergency room which she verbalized understanding. Discharge instructions reviewed with patient, as well as provided in writing per nursing staff. The instructions also include specific and strict return/GO TO THE ER as well as f/u information. All questions have been answered, and the patient deny any further questions with discharge and discharge plan. Some parts of this dictation were generated by voice recognition software and may contain typographical and/or grammatical inaccuracies. ECG Data EKG #1: Attestation EKG: I personally reviewed and interpreted this ECG as follows: ECG completion date: 07/17/24 ECG completion time: 16:46 Prior ECG tracings: available for review Interpretation: Sinus rhythm, ventricular rate of 70, FL 170, QRS 105. No ST elevation or depression noted Critical Care Time Critical Care Time Critical Care Time: No Discharge Plan Discharge Clinical Impression: Lower extremity edema Patient Disposition: Home Condition: Stable Instructions: Leg Edema (ED) Additional Instructions: Please read the information we gave you in regards to leg edema Call your primary care provider tomorrow and see if you can get closer appointment If you develop chest pain, shortness of breath, severe pain wear you cannot walk or new or worsening symptoms please go directly to the emergency room for further evaluation, testing and treatment Patient Language: Egyptian Prescriptions: No Action vitamin B complex 1 tablet PO DAILY propranolol 20 mg tablet 20 mg PO TID hydroxyzine HCl 10 mg Tablet 10 mg PO DAILY polyethylene glycol 3350 [Miralax] 17 gram Powder In Packet 17 g PO DAILY Metamucil Packet 1 packet PO DAILY Zyrtec 10 mg Capsule 10 mg PO DAILY docusate calcium 240 mg capsule 240 mg PO DAILY alendronate 70 mg tablet 70 mg PO WEEKLY Rx Instructions: TAKE 1 TABLET BY MOUTH WEEKLY, acetaminophen-caffeine 500-65 mg Tablet 1 tablet PO DAILY sumatriptan succinate 100 mg tablet See Rx Instructions .ROUTE .COMPLEX PRN (Reason: Migraine Headache) Rx Instructions: TAKE 1/2 TABLET BY MOUTH AT ONSET OF HEADACHE, MAY REPEAT 1 TABLET AFTER AT LEAST 2 HOURS IF NO RELIEF. MAX OF 2 TABLETS IN 24 HOURS omeprazole 40 mg capsule,delayed release(DR/EC) 40 mg PO .bid Qty: 180 3RF duloxetine 60 mg capsule,delayed release(DR/EC) 60 mg PO DAILY cholecalciferol (vitamin D3) [Vitamin D3] 50 mcg (2,000 unit) Capsule 125 mcg PO DAILY quetiapine 200 mg tablet 400 mg PO HS trazodone 150 mg tablet 200 mg PO HS lisinopril 40 mg tablet See Rx Instructions .ROUTE .COMPLEX Qty: 90 1RF Dose Instruction: TAKE 1 TABLET(40 MG) BY MOUTH DAILY Rx Instructions: TAKE 1 TABLET(40 MG) BY MOUTH DAILY gabapentin 300 mg capsule See Rx Instructions .ROUTE .COMPLEX Qty: 180 5RF Dose Instruction: TAKE 2 CAPSULES BY MOUTH THREE TIMES DAILY Rx Instructions: TAKE 2 CAPSULES BY MOUTH THREE TIMES DAILY atorvastatin 20 mg tablet 20 mg PO DAILY Qty: 90 1RF amlodipine 10 mg tablet 10 mg PO DAILY Qty: 90 1RF fluticasone propionate 50 mcg/actuation spray,suspension 2 spray NASAL DAILY Qty: 16 2RF Rx Instructions: administer into each nostril Follow-up/Referrals: Maria De Jesus Pineda, CAITLIN-Les [Advanced Practice Nurse] - 1 Week (express care follow up ) Les Salinas DO [Primary Care Provider] - 1 Week (express care follow up) Time of Disposition: 16:53
--- NOTE | 2024-07-17 16:37 | ECG_ITS ---
Test Date: 2024-07-17 16:46:40 Measurements Intervals Webster Rate: 70 P: 56 WI: 170 QRS: -36 QRSD: 105 T: -13 QT: 373 QTc: 402 Interpretive Statements SINUS RHYTHM MARKED LEFT AXIS DEVIATION [QRS AXIS < -30] INCOMPLETE RIGHT BUNDLE BRANCH BLOCK [90+ ms QRS DURATION, TERMINAL R IN V1/V2, 40+ ms S IN I/aVL/V4/V5/V6] ANTEROSEPTAL MYOCARDIAL INFARCTION [40+ ms Q WAVE IN V1-V4], PROBABLY OLD No previous ECG available for comparison Electronically Signed On 07-18-2024 19:00:39 CDT by Basilio Busby
== END 2024-07-17 17:02 | disposition home or self-care (01) ==
PROVIDERS: Emergency Provider Nurse Practitioner; PCP Internal Medicine
DX: R60.0 Localized edema (principal); I10 Essential (primary) hypertension; E78.5 Hyperlipidemia, unspecified; M19.90 Unspecified osteoarthritis, unspecified site; G62.9 Polyneuropathy, unspecified; Z85.3 Personal history of malignant neoplasm of breast; E66.01 Morbid (severe) obesity due to excess calories; Z68.38 Body mass index [BMI] 38.0-38.9, adult; F41.9 Anxiety disorder, unspecified; F32.A Depression, unspecified
CPT/HCPCS: 93005; 99213; G0463

== ENCOUNTER 2024-07-25 12:34 | Outpatient (CLI) | payer MEDICARE, SELFPAY ==
--- OUTSIDE RECORDS SUMMARY | 2024-07-25 12:38 | XMS_ITS | Clinical Summary ---
Author Organization [facility] Address [address] [place] [address] Phone Care Team Providers Care Electrolog Operator Name Role Phone Unavailable Primary Care Provider Unavailabl e Allergies Active Allergy Reactions Criticality Noted Date Comments Midazolam Swelling Low 01/04/2018 Versed Social History Tobacco Use Types Packs/Day Years Used Date Smoking Tobacco: Never Assessed Comments Unknown Sex and Gender Information Value Date Recorded Sex Assigned at Not on file Legal Sex Female 1:59 PM CDT Gender Identity Not on file Sexual Orientation Not on file Last Filed Vital Signs Vital Sign Reading Time Taken Comments Blood Pressure - - Pulse - - Temperature - - Respiratory Rate - - Oxygen Saturation - - Inhaled Oxygen Concentration - - Weight 97.5 kg (215 lb) 10/27/2022 1:00 PM CDT Height 162.6 cm (5' 4 ) 10/27/2022 1:00 PM CDT Body Mass Index 36.9 10/27/2022 1:00 PM CDT Plan of Treatment Health Maintenance Due Date Last Done Comments DTAP/TDAP/TD VACCINES (1 - Tdap) 1969 COLORECTAL SCREENING 1995 Colorectal Cancer Screening 1995 FIT-DNA Q 3 years 1995 FIT/FOBT Q 1 year 1995 Flex Sig/CT Colonography Q 5 years 1995 ZOSTER VACCINE (1 of 2) 01/17/2000 OSTEOPOROSIS SCREENING 2015 INFLUENZA VACCINE (#1) 2023 04/11/2019, 2018 BREAST CANCER SCREENING 10/28/2023 10/27/2022 COVID-19 Vaccine (3 - season) 2023, 05/21/2020 RSV VACCINE (60+ or ) (1 - 1-dose 75+ series) 2025 PNEUMOCOCCAL VACCINE 50+ YEARS Completed 04/11/2019 , 01/21/2019 Procedures Procedure Name Priority Date/Time Associated Diagnosis Comments MAMMO DIAG UNI RIGHT 3D SUDHIR W OR WO CAD Routine 10/27/2022 12:13 PM CDT Abnormal findings on diagnostic imaging of breast from Last 3 Months or Most Recently Relevant to Health Maintenance Results * (ABNORMAL) MAMMO DIAG UNI RIGHT 3D SUDHIR W OR WO CAD (10/27/2022 12:13 PM CDT) Anatomical Region Laterality Modality Breast Right Mammography 10/27/2022 12:1 3 PM CDT Impressions 10/27/2022 2:00 PM CDT IMPRESSION: 1. Vague distortion within the region of the suspected fat necrosis in the lateral right breast. The patient is unable to tolerate prone stereotactic guided core biopsy. Ultrasound-guided core biopsy will be performed. OVERALL FINAL ASSESSMENT: BI-RADS CATEGORY 4: Suspicious Findings RECOMMENDATION: 1. Recommend attempted ultrasound guided core biopsy of the probable fat necrosis and/or scarring within the lateral right breast. Narrative 10/27/2022 2:00 PM CDT RIGHT DIAGNOSTIC DIGITAL MAMMOGRAM WITH TOMOSYNTHESIS, CAD AND LIMITED RIGHT BREAST ULTRASOUND DATE: 10/27/2022 12:13 PM DICTATION LOCATION: [facility] HISTORY: Abnormal outside examination with biopsy recommendation. TECHNIQUE: Diagnostic mammograms of the right breast were performed on a digital system. 2D and 3D acquisitions were obtained. CAD was utilized. In addition, a limited ultrasound of the right breast was performed. COMPARISON: Comparison made to outside studies dating back to February 2021. BREAST COMPOSITION: There are scattered areas of fibroglandular density. FINDINGS: Mammogram: There are areas of fat necrosis identified within the right breast with architectural distortion laterally. The architectural distortion appears similar to the 2020 examination. Biopsy of this area was recommended. The patient is unable to tolerate prone stereotactic guided biopsy. Ultrasound of the area was performed. Ultrasound: Targeted ultrasound of the right breast was performed. There is a suggestion of vague distortion within the right breast at the 8:00 position which appears to correlate with the mammographic area of concern. Procedure Note Mikey Hurt MD - 08/11/2023 RIGHT DIAGNOSTIC DIGITAL MAMMOGRAM WITH TOMOSYNTHESIS, CAD AND LIMITED RIGHT BREAST ULTRASOUND DATE: 10/27/2022 12:13 PM DICTATION LOCATION: [facility] HISTORY: Abnormal outside examination with biopsy recommendation. TECHNIQUE: Diagnostic mammograms of the right breast were performed on a digital system. 2D and 3D acquisitions were obtained. CAD was utilized. In addition, a limited ultrasound of the right breast was performed. COMPARISON: Comparison made to outside studies dating back to February 2021. BREAST COMPOSITION: There are scattered areas of fibroglandular density. FINDINGS: Mammogram: There are areas of fat necrosis identified within the right breast with architectural distortion laterally. The architectural distortion appears similar to the 2020 examination. Biopsy of this area was recommended. The patient is unable to tolerate prone stereotactic guided biopsy. Ultrasound of the area was performed. Ultrasound: Targeted ultrasound of the right breast was performed. There is a suggestion of vague distortion within the right breast at the 8:00 position which appears to correlate with the mammographic area of concern. IMPRESSION: 1. Vague distortion within the region of the suspected fat necrosis in the lateral right breast. The patient is unable to tolerate prone stereotactic guided core biopsy. Ultrasound-guided core biopsy will be performed. OVERALL FINAL ASSESSMENT: BI-RADS CATEGORY 4: Suspicious Findings RECOMMENDATION: 1. Recommend attempted ultrasound guided core biopsy of the probable fat necrosis and/or scarring within the lateral right breast. Columba Yadav MD MAMMO ORDERABLES Final Resul t from Last 3 Months or Most Recently Relevant to Health Maintenance Insurance [facility] [id number]
--- OUTSIDE RECORDS SUMMARY | 2024-07-25 12:38 | XMS_ITS | Clinical Summary ---
Author Organization [facility] Address [address] [place] [id number] Care Team Providers Care Banking Assistant Name Role Phone Unavailable Primary Care Provider Unavailabl e Social History Tobacco Use Types Packs/Day Years Used Date Smoking Tobacco: Never Assessed Comments Unknown Sex and Gender Information Value Date Recorded Sex Assigned at Not on file Legal Sex Female 7:20 PM CDT Gender Identity Not on file Sexual Orientation Not on file Plan of Treatment Health Maintenance Due Date Last Done Comments Colorectal Cancer Screening Colonoscopy (10 Years) 1950 Hepatitis C 01/17/1968 DTaP, Tdap and Td Vaccines ( 1 - Tdap) 1969 Mammogram Screening 1990 Pneumococcal Vaccine: 50+ Ye ars (1 of 1 - PCV) 01/17/2000 Zoster Vaccines (1 of 2) 01/17/2000 Dexa Scan (General) 2015 COVID-19 Vaccine (2023-2 5 season) 2023 RSV Immunization or 60+ Years (1 - 1-dose 75+ series) 2025 Meningococcal B Vaccine Aged Out No l onger eligible based on patient's age to complete this topic Meningococcal Vaccine Aged Out No kenneth toby eligible based on patient's age to complete this topic RSV Immunizations Under 20 Months Aged Out No longer eligible based on patient's age to complete this topic
--- OUTSIDE RECORDS SUMMARY | 2024-07-25 12:38 | XMS_ITS | Patient Health Record ---
Author Organization [facility] Address [address] [place] [address] Care Team Providers Care Independent Producer Name Role Phone Sussy Posey Unavailable [phone] Sarah Beth Zambrano Unavailable [phone] Migration, Provider Unavailable Unavailable Allergies Allergen (clinical drug ingredient) Drug/Non Drug Allergy documented on EMR Reaction Allergy Type Onset Date Status VERSED (uncoded) Unknown Allergy 05/29/2023 Ac tive Reason For Referral No Information Medications Medication SIG (Take, Route, Frequency, Duration) Notes Start Date End Date Status traZODone HCl 100 MG 2 tablet at bedtime Oral Once a day for 90 days 05/29/2023 Active Docusate Sodium 100 MG Oral 05/29/2023 Active DULoxetine HCl 60 MG 1 capsule Oral Once a day for 90 days 05/29/2023 Active Atorvastatin Calcium 20 MG 1 tablet Oral Once a day 05/29/2023 Active QUEtiapine Fumarate 200 MG 2 tablets Oral Once a day for 90 days bedtime Active SUMAtriptan Succinate 100 MG 1 tablet as needed, may take second dose at least 2 hours after first dose up to 2 tablets per day as needed Oral Once a day As needed 05/29/2023 Active Fluticasone Propionate Diskus 50 MCG/ACT Inhalation *Reorder from [facility] for eRx and Interaction Alerts* 05/29/2023 Active PreviDent 5000 Booster Plus 1.1 % Dental 05/29/2023 Active hydrOXYzine HCl 10 MG 1 tablet Oral three times a day for 90 days 05/29/2023 Active Alendronate Sodium 70 MG 1 tablet 30 minutes before the first food, beverage or medicine of the day with plain water Oral 05/29/2023 Active Gabapentin 300 MG 2 capsule Oral three times a day 05/29/2023 Active Lisinopril 40 MG 1 tablet Oral Once a day 05/29/2023 Active Propranolol HCl 20 MG 1 tablet Oral three times a day for 90 days Active Omeprazole 40 MG 1 capsule 1/2 to 1 hour before morning meal Oral TWICE A DAY 05/29/2023 Active Immunizations Vaccine Route Administration Date Status Comme nts Influenza virus vaccine, quadrivalent (IIV4), split virus, 0.25 mL dosage Unknown 01/22/2019 Administered Infuenza, trivalent, recombi nant, preservative free Unknown 04/11/2019 Administered Pfizer Biontech Covid-19 Vac cine 2nd dose Unknown 05/21/2020 Administered Pfizer Biontech Covid-19 Vac cine 2nd dose Unknown 06/11/2020 Administered Pfizer Biontech Covid-19 Vac cine 2nd dose Unknown 12/19/2020 Administered Pfizer-Biontech Covid-19 Vac cine 1st dose Unknown 07/19/2021 Administered Pneumococcal conjugate PCV 13 Unknown 01/21/2019 Admini stered Pneumococcal polysaccharide PPV23 Unknown 04/11/2019 Ad ministered Tdap Unknown 09/30/2020 Administered Social History Tobacco Use: Social History Observation Description Date Details (start date - stop date) Never Smoker NA - NA Sex Assigned At : Social History Observation Description Sex Assigned At Female Household Question Answer Notes Marital status: Number of adults in household: 2 Level of education: finished college retired Tobacco Control (Standard) Question Answer Notes Tobacco use: Nonsmoker Additional Findings: Tobacco non-user Current no nsmoker AUDIT-C (Standard) Question Answer Notes Did you have a drink contain ing alcohol in the past year? Yes How often did you have a dri nk containing alcohol in the past year? 2 to 3 times a week (3 points) How many drinks did you have on a typical day when you were drinking in the past year? 1 or 2 drinks (0 point) How often did you have six o r more drinks on one occasion in the past year? 2 to 3 times per week (3 points) Points 6 Interpretation Positive Problems Problem Type SNOMED Code ICD Code Onset Dates Problem Status W/U Status Risk Notes Problem Severe recurrent major depression without psychotic features (22524874) Major depressive disorder, recurrent severe without psychotic features (F33.2) Active confirmed Problem Generalized anxiety disorder (71317410) Generalized anxiety disorder (F41.1) 4 Active confirmed Problem Primary insomnia (7177347) Primary insomnia (F51.01) 3 Active confirmed Problem Encounter for screening for cardiovascular disorders (Z13.6) Active confirmed Problem Long-term current use of drug therapy (158759223) Other group home (current) drug therapy (Z79.899) 1 Active confirmed Problem Depression Screening (749484414) Encounter for screening for depression (Z13.31) Active confirmed Problem [id number] MDD (major depressive disorder), recurrent episode, mild (F33.0) Active confirmed Vital Signs Heart Rate 79 /min 06/13/2024 Height-cm 162.56 cm 06/13/2024 Blood pressure diastolic 73 mm Hg 06/13/2024 Weight-kg 99.79 kg 06/13/2024 Height 64.00 in 06/13/2024 Blood pressure systolic 111 mm Hg 06/13/2024 Weight 220 lbs 06/13/2024 BMI 37.76 kg/m2 06/13/2024 Encounters Encounter Location Date Provider Diagnosis [facility] [place] [id number] [address] 08/15/[address]ussy [address] [facility] [address] [address] 02/29/2024 Sussy Posey Generalized anxiety disorder F41.1 ; Major depressive disorder, recurrent severe without psychotic features F33.2 and Primary insomnia F51.[address] [facility] [place] [address] [address] 06/13/2024 Sarah Beth Zambrano Encounter for screening for depression Z13.31 ; Encounter for screening for cardiovascular disorders Z13.6 ; MDD (major depressive disorder), recurrent episode, mild F33.0 ; Generalized anxiety disorder F41.1 ; Primary insomnia F51.01 and Other group home (current) drug therapy Z79.[address] [facility] [place] [address] [address] 08/04/2023 Provider Migration [facility] [place] [id number] [address] 08/05/2023 Provider Migration [facility] [address] [place] [address] 11/13/20[address] Sussy Kalpesh [facility] [address] [place] [address] 12/14/2023 Estephanielara Velascot [facility] [address] [place] [address] 04/17/2024 Estephanielara VelizKalpesh Major depressive disorder, recurrent severe without psychotic features F33.2 and Generalized anxiety disorder F41.1 Assessments Encounter Date Diagnosis (ICD Code) Assessment Notes Treatment Notes Treatment Clinical Notes Section Notes 04/17/2024 Major depressive disorder, recurrent severe without psychotic features (ICD-10 - F33.2) 04/17/2024 Generalized anxiety disorder (ICD-10 - F41.1) 02/29/2024 Major depressive disorder, recurrent severe without psychotic features (ICD-10 - F33.2) 02/29/2024 Generalized anxiety disorder (ICD-10 - F41.1) 06/13/2024 Encounter for screening for depression (ICD-10 - Z13.31) Learning About Depression Screening material was published presently taking Vistaril 10 mg three times a day, Trazodone 200 mg at bedtime, Cymbalta 60 mg daily, Seroquel 200 mg - takes 2 tablets = 400 mg total at bedtime 1. Depression Cymbalta 60 mg daily, Seroquel 200 mg - takes 2 tablets = 400 mg total at bedtime Obtain labs PCP reviewed notes in charts 2. Anxiety Vistaril 10 mg three times a day Propranolol 20 mg TID monitor B/P 3. Insomnia Trazodone 200 mg at bedtime sleep hygiene Obtain lab PCP AIMS= 0 06/13/24 educated on all medications, benefits, side effects and risk, and educated on depression, anxiety, and ADHD, mood d/o and educated on compliance of medications, metabolic and movement d/o education appointment is, continue therapy discussion with patient about course of treatment and patient instructions. education on serotonin syndrome SSRI/SNRI side effects discussed including but not limited to, gastric upset, nausea, vomiting, diarrhea and/or constipation, weight changes, sexual side effects including loss of libido, increased suicidal thoughts/behavior s in children and young adults, and serotonin syndrome. Second generation antipsychotics (SGAs) have metabolic syndrome issues with weight gain, increase in prolactin, increased waist circumference, increased lipids, and increased glucose. Thus routine monitoring of weight, metabolic labs, etc. is indicated. A general rank ordering of antipsychotics that have the greatest to the least risk of metabolic effects is olanzapine, quetiapine, risperidone, ziprasidone, and aripiprazole. However, weight gain can occur with all of these drugs and considerable variability exists among patients receiving the same drug regarding the risk of metabolic effects. Anti-psychotic agents not only increase the risk of metabolic disorder, they also increase the risk of CVA, akathisia, and movement disorders including EPS or tardive dyskinesia (more common with first generation antipsychotics) and more. Elderly- discussed risks, cognition, sedation, falls, metabolic, movement and atypical antipsychotics carry a black-box warning for increased risk of and cerebrovascular events in dementia. Medication Management and Follow-Up - Plan: - Schedule follow-up appointments every 1-3 months to monitor the patient's response to the medication regimen. - Reinforce the importance of avoiding recreational drug use due to potential neurotoxicity and interactions with prescribed medications. 06/13/2024 Encounter for screening for cardiovascular disorders (ICD-10 - Z13.6) presently taking Vistaril 10 mg three times a day, Trazodone 200 mg at bedtime, Cymbalta 60 mg daily, Seroquel 200 mg - takes 2 tablets = 400 mg total at bedtime 1. Depression Cymbalta 60 mg daily, Seroquel 200 mg - takes 2 tablets = 400 mg total at bedtime Obtain labs PCP reviewed notes in charts 2. Anxiety Vistaril 10 mg three times a day Propranolol 20 mg TID monitor B/P 3. Insomnia Trazodone 200 mg at bedtime sleep hygiene Obtain lab PCP AIMS= 0 06/13/24 educated on all medications, benefits, side effects and risk, and educated on depression, anxiety, and ADHD, mood d/o and educated on compliance of medications, metabolic and movement d/o education appointment is, continue therapy discussion with patient about course of treatment and patient instructions. education on serotonin syndrome SSRI/SNRI side effects discussed including but not limited to, gastric upset, nausea, vomiting, diarrhea and/or constipation, weight changes, sexual side effects including loss of libido, increased suicidal thoughts/behavior s in children and young adults, and serotonin syndrome. Second generation antipsychotics (SGAs) have metabolic syndrome issues with weight gain, increase in prolactin, increased waist circumference, increased lipids, and increased glucose. Thus routine monitoring of weight, metabolic labs, etc. is indicated. A general rank ordering of antipsychotics that have the greatest to the least risk of metabolic effects is olanzapine, quetiapine, risperidone, ziprasidone, and aripiprazole. However, weight gain can occur with all of these drugs and considerable variability exists among patients receiving the same drug regarding the risk of metabolic effects. Anti-psychotic agents not only increase the risk of metabolic disorder, they also increase the risk of CVA, akathisia, and movement disorders including EPS or tardive dyskinesia (more common with first generation antipsychotics) and more. Elderly- discussed risks, cognition, sedation, falls, metabolic, movement and atypical antipsychotics carry a black-box warning for increased risk of and cerebrovascular events in dementia. Medication Management and Follow-Up - Plan: - Schedule follow-up appointments every 1-3 months to monitor the patient's response to the medication regimen. - Reinforce the importance of avoiding recreational drug use due to potential neurotoxicity and interactions with prescribed medications. 02/29/2024 Primary insomnia (ICD-10 - F51.01) 06/13/2024 MDD (major depressive disorder), recurrent episode, mild (ICD-10 - F33.0) Learning About Depression material was published, Learning About How to Get Help During a Mental Health Crisis material was published, Depression Treatment: Care Instructions material was published presently taking Vistaril 10 mg three times a day, Trazodone 200 mg at bedtime, Cymbalta 60 mg daily, Seroquel 200 mg - takes 2 tablets = 400 mg total at bedtime 1. Depression Cymbalta 60 mg daily, Seroquel 200 mg - takes 2 tablets = 400 mg total at bedtime Obtain labs PCP reviewed notes in charts 2. Anxiety Vistaril 10 mg three times a day Propranolol 20 mg TID monitor B/P 3. Insomnia Trazodone 200 mg at bedtime sleep hygiene Obtain lab PCP AIMS= 0 06/13/24 educated on all medications, benefits, side effects and risk, and educated on depression, anxiety, and ADHD, mood d/o and educated on compliance of medications, metabolic and movement d/o education appointment is, continue therapy discussion with patient about course of treatment and patient instructions. education on serotonin syndrome SSRI/SNRI side effects discussed including but not limited to, gastric upset, nausea, vomiting, diarrhea and/or constipation, weight changes, sexual side effects including loss of libido, increased suicidal thoughts/behavior s in children and young adults, and serotonin syndrome. Second generation antipsychotics (SGAs) have metabolic syndrome issues with weight gain, increase in prolactin, increased waist circumference, increased lipids, and increased glucose. Thus routine monitoring of weight, metabolic labs, etc. is indicated. A general rank ordering of antipsychotics that have the greatest to the least risk of metabolic effects is olanzapine, quetiapine, risperidone, ziprasidone, and aripiprazole. However, weight gain can occur with all of these drugs and considerable variability exists among patients receiving the same drug regarding the risk of metabolic effects. Anti-psychotic agents not only increase the risk of metabolic disorder, they also increase the risk of CVA, akathisia, and movement disorders including EPS or tardive dyskinesia (more common with first generation antipsychotics) and more. Elderly- discussed risks, cognition, sedation, falls, metabolic, movement and atypical antipsychotics carry a black-box warning for increased risk of and cerebrovascular events in dementia. Medication Management and Follow-Up - Plan: - Schedule follow-up appointments every 1-3 months to monitor the patient's response to the medication regimen. - Reinforce the importance of avoiding recreational drug use due to potential neurotoxicity and interactions with prescribed medications. 06/13/2024 Generalized anxiety disorder (ICD-10 - F41.1) Generalized Anxiety Disorder: Care Instructions material was published, Learning About Generalized Anxiety Disorder material was published, Learning About Anxiety Disorders material was published, Learning About Transcranial Magnetic Stimulation (TMS) material was published presently taking Vistaril 10 mg three times a day, Trazodone 200 mg at bedtime, Cymbalta 60 mg daily, Seroquel 200 mg - takes 2 tablets = 400 mg total at bedtime 1. Depression Cymbalta 60 mg daily, Seroquel 200 mg - takes 2 tablets = 400 mg total at bedtime Obtain labs PCP reviewed notes in charts 2. Anxiety Vistaril 10 mg three times a day Propranolol 20 mg TID monitor B/P 3. Insomnia Trazodone 200 mg at bedtime sleep hygiene Obtain lab PCP AIMS= 0 06/13/24 educated on all medications, benefits, side effects and risk, and educated on depression, anxiety, and ADHD, mood d/o and educated on compliance of medications, metabolic and movement d/o education appointment is, continue therapy discussion with patient about course of treatment and patient instructions. education on serotonin syndrome SSRI/SNRI side effects discussed including but not limited to, gastric upset, nausea, vomiting, diarrhea and/or constipation, weight changes, sexual side effects including loss of libido, increased suicidal thoughts/behavior s in children and young adults, and serotonin syndrome. Second generation antipsychotics (SGAs) have metabolic syndrome issues with weight gain, increase in prolactin, increased waist circumference, increased lipids, and increased glucose. Thus routine monitoring of weight, metabolic labs, etc. is indicated. A general rank ordering of antipsychotics that have the greatest to the least risk of metabolic effects is olanzapine, quetiapine, risperidone, ziprasidone, and aripiprazole. However, weight gain can occur with all of these drugs and considerable variability exists among patients receiving the same drug regarding the risk of metabolic effects. Anti-psychotic agents not only increase the risk of metabolic disorder, they also increase the risk of CVA, akathisia, and movement disorders including EPS or tardive dyskinesia (more common with first generation antipsychotics) and more. Elderly- discussed risks, cognition, sedation, falls, metabolic, movement and atypical antipsychotics carry a black-box warning for increased risk of and cerebrovascular events in dementia. Medication Management and Follow-Up - Plan: - Schedule follow-up appointments every 1-3 months to monitor the patient's response to the medication regimen. - Reinforce the importance of avoiding recreational drug use due to potential neurotoxicity and interactions with prescribed medications. 06/13/2024 Primary insomnia (ICD-10 - F51.01) Insomnia: Care Instructions material was published, Learning About Sleeping Well material was published presently taking Vistaril 10 mg three times a day, Trazodone 200 mg at bedtime, Cymbalta 60 mg daily, Seroquel 200 mg - takes 2 tablets = 400 mg total at bedtime 1. Depression Cymbalta 60 mg daily, Seroquel 200 mg - takes 2 tablets = 400 mg total at bedtime Obtain labs PCP reviewed notes in charts 2. Anxiety Vistaril 10 mg three times a day Propranolol 20 mg TID monitor B/P 3. Insomnia Trazodone 200 mg at bedtime sleep hygiene Obtain lab PCP AIMS= 0 06/13/24 educated on all medications, benefits, side effects and risk, and educated on depression, anxiety, and ADHD, mood d/o and educated on compliance of medications, metabolic and movement d/o education appointment is, continue therapy discussion with patient about course of treatment and patient instructions. education on serotonin syndrome SSRI/SNRI side effects discussed including but not limited to, gastric upset, nausea, vomiting, diarrhea and/or constipation, weight changes, sexual side effects including loss of libido, increased suicidal thoughts/behavior s in children and young adults, and serotonin syndrome. Second generation antipsychotics (SGAs) have metabolic syndrome issues with weight gain, increase in prolactin, increased waist circumference, increased lipids, and increased glucose. Thus routine monitoring of weight, metabolic labs, etc. is indicated. A general rank ordering of antipsychotics that have the greatest to the least risk of metabolic effects is olanzapine, quetiapine, risperidone, ziprasidone, and aripiprazole. However, weight gain can occur with all of these drugs and considerable variability exists among patients receiving the same drug regarding the risk of metabolic effects. Anti-psychotic agents not only increase the risk of metabolic disorder, they also increase the risk of CVA, akathisia, and movement disorders including EPS or tardive dyskinesia (more common with first generation antipsychotics) and more. Elderly- discussed risks, cognition, sedation, falls, metabolic, movement and atypical antipsychotics carry a black-box warning for increased risk of and cerebrovascular events in dementia. Medication Management and Follow-Up - Plan: - Schedule follow-up appointments every 1-3 months to monitor the patient's response to the medication regimen. - Reinforce the importance of avoiding recreational drug use due to potential neurotoxicity and interactions with prescribed medications. 06/13/2024 Other group home (current) drug therapy (ICD-10 - Z79.899) Medication Refill: Care Instructions material was published presently taking Vistaril 10 mg three times a day, Trazodone 200 mg at bedtime, Cymbalta 60 mg daily, Seroquel 200 mg - takes 2 tablets = 400 mg total at bedtime 1. Depression Cymbalta 60 mg daily, Seroquel 200 mg - takes 2 tablets = 400 mg total at bedtime Obtain labs PCP reviewed notes in charts 2. Anxiety Vistaril 10 mg three times a day Propranolol 20 mg TID monitor B/P 3. Insomnia Trazodone 200 mg at bedtime sleep hygiene Obtain lab PCP AIMS= 0 06/13/24 educated on all medications, benefits, side effects and risk, and educated on depression, anxiety, and ADHD, mood d/o and educated on compliance of medications, metabolic and movement d/o education appointment is, continue therapy discussion with patient about course of treatment and patient instructions. education on serotonin syndrome SSRI/SNRI side effects discussed including but not limited to, gastric upset, nausea, vomiting, diarrhea and/or constipation, weight changes, sexual side effects including loss of libido, increased suicidal thoughts/behavior s in children and young adults, and serotonin syndrome. Second generation antipsychotics (SGAs) have metabolic syndrome issues with weight gain, increase in prolactin, increased waist circumference, increased lipids, and increased glucose. Thus routine monitoring of weight, metabolic labs, etc. is indicated. A general rank ordering of antipsychotics that have the greatest to the least risk of metabolic effects is olanzapine, quetiapine, risperidone, ziprasidone, and aripiprazole. However, weight gain can occur with all of these drugs and considerable variability exists among patients receiving the same drug regarding the risk of metabolic effects. Anti-psychotic agents not only increase the risk of metabolic disorder, they also increase the risk of CVA, akathisia, and movement disorders including EPS or tardive dyskinesia (more common with first generation antipsychotics) and more. Elderly- discussed risks, cognition, sedation, falls, metabolic, movement and atypical antipsychotics carry a black-box warning for increased risk of and cerebrovascular events in dementia. Medication Management and Follow-Up - Plan: - Schedule follow-up appointments every 1-3 months to monitor the patient's response to the medication regimen. - Reinforce the importance of avoiding recreational drug use due to potential neurotoxicity and interactions with prescribed medications. 06/13/2024 Other Quetiapine material was published, Hydroxyzine material was published, Duloxetine material was published, Propranolol (Cardiovascular ) material was published, Trazodone material was published, Heart-Healthy Diet: Care Instructions material was published, Diet and Exercise for Metabolic Syndrome: Care Instructions material was published, Learning About Low-Fat Eating material was published, Body Mass Index: Care Instructions material was published, Learning About Low-Carbohydrat e Diets material was published, Learning About Low-Carbohydrat e Foods material was published presently taking Vistaril 10 mg three times a day, Trazodone 200 mg at bedtime, Cymbalta 60 mg daily, Seroquel 200 mg - takes 2 tablets = 400 mg total at bedtime 1. Depression Cymbalta 60 mg daily, Seroquel 200 mg - takes 2 tablets = 400 mg total at bedtime Obtain labs PCP reviewed notes in charts 2. Anxiety Vistaril 10 mg three times a day Propranolol 20 mg TID monitor B/P 3. Insomnia Trazodone 200 mg at bedtime sleep hygiene Obtain lab PCP AIMS= 0 06/13/24 educated on all medications, benefits, side effects and risk, and educated on depression, anxiety, and ADHD, mood d/o and educated on compliance of medications, metabolic and movement d/o education appointment is, continue therapy discussion with patient about course of treatment and patient instructions. education on serotonin syndrome SSRI/SNRI side effects discussed including but not limited to, gastric upset, nausea, vomiting, diarrhea and/or constipation, weight changes, sexual side effects including loss of libido, increased suicidal thoughts/behavior s in children and young adults, and serotonin syndrome. Second generation antipsychotics (SGAs) have metabolic syndrome issues with weight gain, increase in prolactin, increased waist circumference, increased lipids, and increased glucose. Thus routine monitoring of weight, metabolic labs, etc. is indicated. A general rank ordering of antipsychotics that have the greatest to the least risk of metabolic effects is olanzapine, quetiapine, risperidone, ziprasidone, and aripiprazole. However, weight gain can occur with all of these drugs and considerable variability exists among patients receiving the same drug regarding the risk of metabolic effects. Anti-psychotic agents not only increase the risk of metabolic disorder, they also increase the risk of CVA, akathisia, and movement disorders including EPS or tardive dyskinesia (more common with first generation antipsychotics) and more. Elderly- discussed risks, cognition, sedation, falls, metabolic, movement and atypical antipsychotics carry a black-box warning for increased risk of and cerebrovascular events in dementia. Medication Management and Follow-Up - Plan: - Schedule follow-up appointments every 1-3 months to monitor the patient's response to the medication regimen. - Reinforce the importance of avoiding recreational drug use due to potential neurotoxicity and interactions with prescribed medications. Plan Of Treatment Next Appt Details Provider Name:Sarah Beth Zambrano , 09/12/2024 02:30:00 PM, [address], [address], [place], [address], Insurance Providers Payer Name Payer Address Payer Phone Subscriber Number Group Number Insured Name Patient Relationship to Insured Coverage Start Date Coverage End Date [facility] [address] [place] [phone] [id number] LYNDSEY SHEA Self - patient is the insured Medical (General) History Medical History History ICD Code Problems: Essential hypertension Gastroesophageal reflux disease Generalized anxiety disorder Hyperlipidemia Long-term current use of drug therapy Obesity Primary insomnia Severe recurrent major depression withou t psychotic features , Surgical History Surgery Date(Month/Year) Removal of gallbladder (35992) Tonsilectomy/adenoids 05/17/1954 Breast surgery (75008) 05/18/2007 Removal of gallbladder (50654) 4 Xcapsl ctrc rmvl cplx wo ecp (37399)
--- OUTSIDE RECORDS SUMMARY | 2024-07-25 12:39 | XMS_ITS | Encounter Summary ---
Author Organization [facility] Address [address] [facility] [address] Phone Care Team Providers Care Yarn Weight And Strength Tester Name Role Phone Les Salinas DO Primary Care Provider Reason for Visit * Reason Comments Medication Refill Encounter Details Date Type Department Care Team (Late st Contact Info) Description 08/31/2020 Refill [facility] - Gastroenterology [facility] [address] [place] [address] Mesha Honeycutt Magalys, PAC [address] [place] [address] Medication Refill Social History Tobacco Use Types Packs/Day Years Used Date Smoking Tobacco: Never Smokeless Tobacco: Never Alcohol Use Standard Drinks/Week Comments No 0 (1 standard drink = 0.6 oz pur e alcohol) Sexually Active Control Partners Comments Never Comments No Sex and Gender Information Value Date Recorded Sex Assigned at Not on file Legal Sex Female 12:15 AM CDT Gender Identity Not on file Sexual Orientation Not on file Occupation Industry Job Start Date Job End Date unemployed Not on file Not on file Not on file documented as of this encounter Miscellaneous Notes * Telephone Encounter - Valdez Greene CMA - 09/01/2020 3:35 PM CDT Pharmacy requesting refill of: Requested Prescriptions Pending Prescriptions Disp Refills ??? omeprazole (PriLOSEC) 40 MG CAPSULE DELAYED RELEASE [Pharmacy Med Name: OMEPRAZOLE 40MG CAPSULES] 90 Capsule 1 Sig: TAKE 1 CAPSULE BY MOUTH DAILY Last fill: 06/15/2020 Patients last OV with GI: 10/02/2019 Next Office Visit with GI: 09/22/2020 documented in this encounter Plan of Treatment Not on file documented as of this encounter Visit Diagnoses Not on filedocumented in this encounter Care Teams Yarn Weight And Strength Tester Relationship Specialty Start Date End Date Les Salinas DO [address] [facility] [place] [address] PCP - General Internal Medicine 01/03/18 documented as of this encounter
--- OUTSIDE RECORDS SUMMARY | 2024-07-25 12:39 | XMS_ITS | Referral Summary ---
Author Organization [address] Address [address] [place] [id number] Care Team Providers Care C Unix Developer Name Role Phone Les Salinas DO Primary Care Provider [phone] Allergies Active Allergy Reactions Criticality Noted Date Comments Latex Itching Low 05/07/2017 The powder in latex gloves Midazolam Swelling Medium 05/03/2017 And rash, Medications lisinopril (PRINIVIL,ZESTRIL) 40 mg tabletIndications: hypertension Take 1 tablet (40 mg total) by mouth every morning 02/27/20 17 Active gabapentin (NEURONTIN) 300 mg capsuleIndications :Neuropathic Pain Take 2 capsules (600 mg total) by mouth 3 (three) times a day 08/16/19 18 Active ALPRAZolam (XANAX) 1 mg tabletIndications: anxiety Take 0.5 mg by mouth 3 (three) times a day Active saliva substitute agent (BIOTENE) mouthwashIndicatio ns:Mouth Irritation Swish and spit 30 mL 3 (three) times a day as needed (dry mouth) Active peg 400-propylene glycol (SYSTANE) 0.4-0.3 % ophthalmic solutionIndication s:Dry Eye Administer 1 drop into both eyes 3 (three) times a day as needed Active DULoxetine DR (CYMBALTA) 60 mg capsuleIndications :Anxiety with Depression Take 1 capsule (60 mg total) by mouth every morning 10/02/19 20 Active cholecalciferol (VITAMIN D-3) 5,000 unit capsuleIndications :prevention Take 1 capsule (5,000 Units total) by mouth every morning 08/25/19 20 Active alendronate (FOSAMAX) 70 mg tabletIndications: Post-Menopausal Osteoporosis Take 1 tablet (70 mg total) by mouth every 7 days 08/01/19 20 Active fluticasone propionate (FLONASE) 50 mcg/actuation nasal sprayIndications:A llergic Rhinitis Administer 2 sprays into each nostril every morning 03/30/19 21 Active clindamycin (CLEOCIN) 300 mg capsuleIndications :Status post reverse total shoulder replacement, unspecified laterality TAKE 2 CAPSULES BY MOUTH 1 HOUR BEFORE DENTAL PROCEDURE 2 capsule 7 05/19/19 21 Active Additional Information Patient not taking.Informant: Self, Reported on 07/27/2022 oxybutynin XL (DITROPAN XL) 15 mg 24 hr tabletIndications: Bladder Hyperactivity Take 1 tablet (15 mg total) by mouth nightly 10/23/19 21 Active QUEtiapine (SEROquel) 200 mg tabletIndications: Depression Treatment Adjunct Take 2 tablets (400 mg total) by mouth nightly at bedtime 11/10/19 21 Active traZODone (DESYREL) 100 mg tabletIndications: major depressive disorder Take 2 tablets (200 mg total) by mouth nightly 10/29/[address] (PROTONIX) 40 mg EC tabletIndications: Treatment of Non-Bleeding Gastric Disorder Take 1 tablet (40 mg total) by mouth every morning Active propranoloL (INDERAL) 20 mg tabletIndications: Migraine without aura and without status migrainosus, not intractable Take 1 tablet (20 mg total) by mouth 2 (two) times a day 180 tablet 3 01/24/20 22 Active Additional Information Patient taking differently:20 mg oral 2 times daily,Indications: hypertension, Informant: Self, Reported on 07/27/2022 cetirizine (ZyrTEC) 10 mg tabletIndications: Allergic Rhinitis Take 1 tablet (10 mg total) by mouth every morning Active SUMAtriptan (IMITREX) 100 mg tabletIndications: Migraine Take 1 tablet (100 mg total) by mouth once as needed for migraine Active topiramate (TOPAMAX) 25 mg tabletIndications: Migraine Prevention Take 1 tablet (25 mg total) by mouth 2 (two) times a day 07/06/19 23 Active acetaminophen-aspi rin-caffeine (EXCEDRIN MIGRAINE) 250-250-65 mg per tabletIndications: Migraine Take 2 tablets by mouth every 6 (six) hours as needed for headaches Active celecoxib (CeleBREX) 100 mg capsule Take 1 capsule (100 mg total) by mouth 2 (two) times a day for 14 days 28 capsule 08/12/19 23 Active oxyCODONE (ROXICODONE) 5 mg immediate release tabletIndications: Pain Take 1 tablet (5 mg total) by mouth every 4 (four) hours as needed for pain 20 tablet 08/12/19 23 Active ondansetron ODT (ZOFRAN-ODT) 4 mg disintegrating tablet Take 1 tablet (4 mg total) by mouth every 6 (six) hours as needed for nausea or vomiting 28 tablet 1 08/12/19 23 Active docusate sodium (COLACE) 100 mg capsuleIndications :constipation Take 1 capsule (100 mg total) by mouth 2 (two) times a day 60 capsule 08/12/19 23 Active atorvastatin (LIPITOR) 20 mg tabletIndications: hyperlipidemia Take 4 tablets (80 mg total) by mouth every morning 0 08/12/19 23 Active Active Problems Problem Noted Date Diagnosed Date S/P reverse total shoulder arthroplasty, right 0 08/11/2022 Painful orthopaedic hardware 07/26/2022 Periprosthetic fracture of shoulder 07/26/2022 Migraine without aura and wi thout status migrainosus, not intractable 11/15/2020 Assessment & Plan (02/01/2021 2:52 PM PUMP OPERATOR BYPRODUCTS): Patient continues at this time on propranolol 20 mg b.i.d. for migraine prophylaxis and sumatriptan 100 mg b.i.d. p.r.n. for abortive breakthrough with good tolerability and efficacy. There has been reduction in headache frequency and severity with initiation of prophylaxis and patient is pleased with response to date. I have renewed both propranolol 20 mg b.i.d. and sumatriptan 100 mg b.i.d. p.r.n. as previously prescribed. She will follow-up in neurology clinic in a year. Assessment & Plan (11/15/2020 4:03 PM CDT): Patient has longstanding history of episodic headaches with historical description consisted of migraine without aura. She has found that sumatriptan generally works well for her but because of an increase in headache frequency the monthly allotment of sumatriptan is exceeded. I will place a request for MRI brain report retrieval from [facility] where she allegedly had the MRI completed. I have also started her on propranolol 20 mg b.i.d. for migraine prophylaxis. She will follow-up in neurology clinic in 6 months for reassessment on propranolol. Breast mass 04/09/2020 Aftercare following right sh oulder joint replacement surgery 01/02/2018 Loosening of shoulder joint prosthesis 8 Overview (12/19/2017): Added automatically from request for surgery [id number] Arthritis of knee, right 11/22/2017 Overview (11/22/2017): Added automatically from request for surgery [id number] Closed fracture of right proximal humerus 2017 Overview (05/04/2017): Added automatically from request for surgery [id number] Morbid obesity with BMI of 40.0-44.9, adult 04/19 Abnormal mammogram 12/05/2016 Allergy, drug 04/28/2016 Peripheral neuropathy Assessment & Plan (02/01/2021 2:52 PM PUMP OPERATOR BYPRODUCTS): Patient has history of peripheral neuropathy manifested as neuropathic pain in her feet for which he is using gabapentin with success provided through her PCP. Social History Tobacco Use Types Packs/Day Years Used Date Smoking Tobacco: Never Smokeless Tobacco: Never Alcohol Use Standard Drinks/Week Comments No 0 (1 standard drink = 0.6 oz pur e alcohol) AUDIT-C Answer Date Recorded Q1: How often do you have a drink containing alcohol? Never 08/11/2022 Q2: How many drinks containi ng alcohol do you have on a typical day when you are drinking? Patient does not drink Q3: How often do you have si x or more drinks on one occasion? Never 08/11/2022 Personal Safety Answer Date Recorded Have you ever been in or are you currently in a harmful physical or emotional relationship or is someone making you feel afraid or unsafe? Denies 08/11/2022 Comments No Sex and Gender Information Value Date Recorded Sex Assigned at Not on file Legal Sex Female 11:43 PM PUMP OPERATOR [employer]PR[employer] Gender Identity Not on file Sexual Orientation Not on file Last Filed Vital Signs Vital Sign Reading Time Taken Comments Blood Pressure 165/92 08/11/2022 7:10 PM CDT Pulse 73 08/11/2022 7:10 PM CDT Temperature 36.5 C (97.7 F) 08/11/2022 5:46 PM CDT Respiratory Rate 24 08/11/2022 7:10 PM CDT Oxygen Saturation 93% 08/11/2022 7:10 PM CDT Inhaled Oxygen Concentration - - Weight 106.6 kg (235 lb) 07/27/2022 4:55 PM CDT Height 162.6 cm (5' 4 ) 07/27/2022 4:55 PM CDT Body Mass Index 40.34 07/27/2022 4:55 PM CDT Plan of Treatment Not on file Medical Devices Implanted Type Area Broadcast Transmitter Operator Device Identifier Shelf Expiration Date Model / Serial / Lot Kit Screw Shoulder Reverse Torque Define - [id number] - [id number] Implanted:Qty: 1 on 05/07/2017 by Alex Redding MD at [facility] Other - see comments [employer] 11/13/2021 320-20-00 / [id number] / Screw Bone Equinoxe L34 Mm Od4.5 Mm Shoulder Kit Compression Lock Cap Reverse Red - [id number] - [id number] Implanted:Qty: 1 on 05/07/2017 by Alex Redding MD at [facility] Screw [employer] 09/07/2021 320-20-34 / [id number] / Screw 4.5mm 38mm Bone Cmpr Lkng Cap Kit Equinoxe Shldr Grn - [id number] - [id number] Implanted:Qty: 1 on 05/07/2017 by Alex Redding MD at [facility] Screw [employer] 12/27/2021 320-20-38 / [id number] / Cmpnt Glenoid 38mm +4mm Expand Glenosphere Lat Offset - [id number] - [id number] Implanted:Qty: 1 on 05/07/2017 by Alex Redding MD at [facility] 12/13/2021 320-02-38 / [id number] / Cmpnt Glenoid 38mm +4mm Expand Glenosphere Lat Offset - [id number] - [id number] Implanted:Qty: 1 on 05/07/2017 by Alex Redding MD at [facility] 04/12/2027 320-02-38 / [id number] / Plate Glenoid Equinoxe Standard Reverse - [id number] - [id number] Implanted:Qty: 1 on 05/07/2017 by Alex Redding MD at [facility] 03/27/2027 320-15- / [id number] / Tray Humeral Adapter Equinoxe +0 Mm Reverse Shoulder System - [id number] - [id number] Implanted:Qty: 1 on 05/07/2017 by Alex Redding MD at [facility] 03/26/2027 320-10-00 / [id number] / Exactcounts include [facility] beds at [facility] 320-38-10 Equinoxe 38mm Reverse Constrained Shoulder +0mm Liner Humeral - [id number] Implanted:Qty: 1 on 01/01/2018 by Alex Redding MD at [facility] Right: Shoulder [employer] 04/18/2022 320-38-10 / / [id number] [employer] [id number] Palacos Lv+G Cement 40gm Bone Gentamicin Green - [id number] Implanted:Qty: 1 on 01/01/2018 by Alex Redding MD at [facility] [employer] [id number] / / [employer] [id number] Palacos Lv+G Cement 40gm Bone Gentamicin Green - [id number] Implanted:Qty: 1 on 01/01/2018 by Alex Redding MD at [facility] Right: Shoulder [employer] 10/16/2020 [id number] / / [id number] Exactcounts include 234 beds at [facility] 320-20-00 Reverse Torque Define Shoulder Kit Screw - [id number] Implanted:Qty: 1 on 01/01/2018 by Alex Redding MD at [facility] Right: Shoulder [employer] 11/25/2022 320-20-00 / / [id number] [employer] 320-10-00 Equinoxe Reverse Shoulder +0mm Tray Humeral Adapter - [id number] Implanted:Qty: 1 on 01/01/2018 by Alex Redding MD at [facility] Right: Shoulder [employer] 11/12/2027 320-10-00 / / [id number] [employer] 300-01-09 Equinoxe 9mm Press Fit Primary Shoulder Stem Humeral - [id number] Implanted:Qty: 1 on 01/01/2018 by Alex Redding MD at [facility] Right: Shoulder [employer] 08/21/2027 300-01-09 / / [id number] Explanted Type Area Broadcast Transmitter Operator Device Identifier Shelf Expiration Date Model / Serial / Lot Stem Humeral Equinoxe Od9 Mm Shoulder Press Fit Primary - [id number] - [id number] Implanted:Qty: 1 on 05/07/2017 by Alex Redding MD at [facility] Explanted:Qty: 1 on 01/01/2018 at [facility] Other - see comments Exactcounts include [facility] beds at [facility] 10/04/2026 300-01-09 / [id number] / Description:EXPLANT DISPOSED OF Liner Humeral Equinoxe +0 Mm Od38 Mm Shoulder Reverse Constrained - [id number] - [id number] Implanted:Qty: 1 on 05/07/2017 by Alex Redding MD at [facility] Explanted:Qty: 1 on 01/01/2018 at [facility] Exactcounts include 234 beds at [facility] 09/27/2021 320-38-10 / [id number] / Description:EXPLANT DISPOSED OF Procedures Procedure Name Priority Date/Time Associated Diagnosis Comments DIAGNOSTIC MAMMOGRAM BILATERAL W JEFFREY Schedule Routine, Read Routine (OP Routine) 04/09/2020 1:49 PM PUMP OPERATOR [employer]PRODUCTS Disorder of breast, unspecified Breast lump in female from Last 3 Months or Most Recently Relevant to Health Maintenance Results * Diagnostic Mammogram Bilateral W Jeffrey (04/09/2020 1:49 PM PUMP OPERATOR [employer]PRODU[employer]) Anatomical Region Laterality Modality Breast Bilateral Mammography 04/09/2020 2:31 PM PUMP OPERATOR [employer]PRODUCTS Impressions 04/09/2020 3:59 PM PUMP OPERATOR [employer]PRODU[employer] 1. Correlating with the area of palpable concern in the right breast at 8:30 o'clock position 5 cm from the nipple, there is new focal asymmetry correlating with a 5.9 cm amorphous region of hyperechogenicity most likely representing a combination of contusion, involving hematoma and fat necrosis in the setting of trauma. Follow-up right breast ultrasound in 6 months is recommended to ensure decrease in size of this abnormality. 2. No suspicious finding in the left breast. No mammographic or sonographic correlate for the area of focal tenderness in the inner left breast. OVERALL FINAL ASSESSMENT: BI-RADS Category 3: Probably Benign. Follow up right breast ultrasound in 6 months is recommended. Dictated by: Angeline Fisher M.D. The radiology attending physician has personally reviewed this study, and had reviewed and/or edited this written report and agrees with it. Electronically signed by: Kathy Baldwin M.D. Narrative 04/09/2020 3:59 PM PUMP OPERATOR [employer]PRODUCTS EXAMINATION: BILATERAL DIGITAL DIAGNOSTIC MAMMOGRAM INCLUDING CAD AND BILATERAL DIGITAL BREAST TOMOSYNTHESIS; BILATERAL BREAST SONOGRAM HISTORY: 70-year-old woman with history of left breast cancer status post left partial mastectomy and axillary lymph node dissection in 2007. She presents with a palpable abnormality in the right outer breast which she noticed shortly after a fall in 01/06/2020. She also reports focal pain in the medial left breast. COMPARISON: 01/15/2020, 04/17/2019, 11/14/2016, 02/07/2016 TECHNIQUE: Full field digital mammographic views of BOTH breasts were performed, including computer aided detection (CAD) and BILATERAL digital breast tomosynthesis (DBT). Directed ultrasound evaluation of BOTH breasts was performed. BREAST PARENCHYMAL COMPOSITION: The breasts are almost entirely fatty. MAMMOGRAM FINDINGS: In the RIGHT breast at 8:30 o'clock position at anterior depth, there is a new focal asymmetry surrounding a low attenuating and circumscribed region suggestive of fat necrosis. There is no new suspicious abnormality in the LEFT breast. Specifically, there is no mammographic correlate for the area of focal tenderness in the medial left breast. SONOGRAM FINDINGS: In the right breast at 8:30 o'clock position and 5 cm from the nipple in the area of palpable concern, there is a 5.9 x 4.0 x 5.6 cm amorphous region of relative hyperechogenicity without increased internal vascularity. In the left breast at 8 o'clock position 8 cm from the nipple in the area of focal pain, there is no suspicious cystic or solid lesion. Procedure Note Kathy Baldwin MD - 04/09/2020 EXAMINATION: BILATERAL DIGITAL DIAGNOSTIC MAMMOGRAM INCLUDING CAD AND BILATERAL DIGITAL BREAST TOMOSYNTHESIS; BILATERAL BREAST SONOGRAM HISTORY: 70-year-old woman with history of left breast cancer status post left partial mastectomy and axillary lymph node dissection in 2007. She presents with a palpable abnormality in the right outer breast which she noticed shortly after a fall in 01/06/2020. She also reports focal pain in the medial left breast. COMPARISON: 01/15/2020, 04/17/2019, 11/14/2016, 02/07/2016 TECHNIQUE: Full field digital mammographic views of BOTH breasts were performed, including computer aided detection (CAD) and BILATERAL digital breast tomosynthesis (DBT). Directed ultrasound evaluation of BOTH breasts was performed. BREAST PARENCHYMAL COMPOSITION: The breasts are almost entirely fatty. MAMMOGRAM FINDINGS: In the RIGHT breast at 8:30 o'clock position at anterior depth, there is a new focal asymmetry surrounding a low attenuating and circumscribed region suggestive of fat necrosis. There is no new suspicious abnormality in the LEFT breast. Specifically, there is no mammographic correlate for the area of focal tenderness in the medial left breast. SONOGRAM FINDINGS: In the right breast at 8:30 o'clock position and 5 cm from the nipple in the area of palpable concern, there is a 5.9 x 4.0 x 5.6 cm amorphous region of relative hyperechogenicity without increased internal vascularity. In the left breast at 8 o'clock position 8 cm from the nipple in the area of focal pain, there is no suspicious cystic or solid lesion. IMPRESSION: 1. Correlating with the area of palpable concern in the right breast at 8:30 o'clock position 5 cm from the nipple, there is new focal asymmetry correlating with a 5.9 cm amorphous region of hyperechogenicity most likely representing a combination of contusion, involving hematoma and fat necrosis in the setting of trauma. Follow-up right breast ultrasound in 6 months is recommended to ensure decrease in size of this abnormality. 2. No suspicious finding in the left breast. No mammographic or sonographic correlate for the area of focal tenderness in the inner left breast. OVERALL FINAL ASSESSMENT: BI-RADS Category 3: Probably Benign. Follow up right breast ultrasound in 6 months is recommended. Dictated by: Angeline Fisher M.D. The radiology attending physician has personally reviewed this study, and had reviewed and/or edited this written report and agrees with it. Electronically signed by: Kathy Baldwin M.D. us Madhuri Adrian MD IMG MAMMO PROCEDURES Fi nal Result from Last 3 Months or Most Recently Relevant to Health Maintenance [facility] REF [employer] MEDICARE ADVANTAGE [facility] MEDICARE ADVANTAGE Advance Directives For more information, please contact: [phone] * Full Code (Latest Code Status on File) Date Activated Date Inactivated Comments 01/01/2018 8:13 PM 01/02/2018 4:12 PM * Full Code Date Activated Date Inactivated Comments 05/07/2017 6:02 PM 05/08/2017 9:01 PM Care Teams C Unix Developer Relationship Specialty Start Date End Date Les Salinas DO PCP - General Internal Medicine 05/22/17
--- OUTSIDE RECORDS SUMMARY | 2024-07-25 12:39 | XMS_ITS | Clinical Summary ---
Author Organization [address] Address [address] [place] [address] Care Team Providers Care Painter Airbrush Name Role Phone Les Salinas DO Primary Care Provider [phone] Allergies Active Allergy Reactions Criticality Noted Date [...] 11/15/2020 Assessment & Plan (02/01/2021 2:52 PM RIM FIRE PRIMING OPERATOR): Patient continues at this time on propranolol [...] request for MRI brain report retrieval from [facility] where she allegedly had the MRI completed. I have also started her on propranolol 20 mg b.i.d. for migraine prophylaxis. She will follow-up in neurology clinic in 6 months for reassessment on propranolol. Breast mass 04/09/2020 Aftercare following right sh oulder joint replacement surgery 01/02/2018 Loosening of shoulder joint prosthesis 8 Overview (12/19/2017): Added automatically from request for surgery [id number] Arthritis of knee, right 11/22/2017 Overview (11/22/2017): Added automatically from request for surgery [id number] Closed fracture of right proximal humerus 2017 Overview (05/04/2017): Added automatically from request for surgery [id number] Morbid obesity with BMI of 40.0-44.9, adult 04/19 Abnormal mammogram 12/05/2016 Allergy, drug 04/28/2016 Peripheral neuropathy Assessment & Plan (02/01/2021 2:52 PM RIM FIRE PRIMING OPERATOR): Patient has history of peripheral neuropathy manifested as neuropathic pain in her feet for which he is using gabapentin with success provided through her PCP. Surgical History Surgery Date Site/Laterality Comments OOPHORECTOMY 03/19/2016 - 03/18/2017 OVARIES REMOVED SALPINGECTOMY Bilateral CHOLECYSTECTOMY 03/19/2010 - 03/18/2011 JOINT REPLACEMENT 05/07/2017 Right RTSA BREAST SURGERY Left lumpectomy with 14 Lymph Nodes removed 2008 TONSILLECTOMY AND ADENOIDECTOMY BILATERAL TEMPOROMANDIBULAR JOINT ARTHROPLASTY CATARACT EXTRACTION COLONOSCOPY BREAST BIOPSY 10/27/2022 Right Medical History Medical History Date Comments Hypertension Peripheral neuropathy Depression Cancer (HCC) Left Breast Obesity High cholesterol Family History Medical History Relation Name Comments No Known Problems Brother Heart attack Father Heart attack Mother Anesthesia problems Neg Hx Arthritis Neg Hx Heart disease Neg Hx Relation Name Status Comments Brother Alive Father Mother Social History Tobacco Use Types Packs/Day Years [...] on file Legal Sex Female 11:43 PM RIM FIRE PRIMING OPERATOR Gender Identity Not on file Sexual Orientation Not on file Obstetrics History Last Filed Vital Signs Vital Sign Reading [...] 07/27/2022 4:55 PM CDT Plan of Treatment Health Maintenance Due Date Last Done Comments Colon Cancer Screening-Colonoscopy 1950 Depression Screening 1950 Hepatitis C Screening 1950 Osteoporosis Screening-Bone Density Scan 1950 DTaP/Tdap/Td Vaccine (1 - Tdap) 1961 Hepatitis B Screening 01/17/1968 Zoster Vaccine (1 of 2) 01/17/2000 Well Visit 65+ 2015 Breast Cancer Screening-Mammogram 04/09/2021 04/09/2020, 12/05/2016, 03/03/2014, Additional history exists Fall Risk Assessment 08/12/2023 08/11/2022 Covid-19 Vaccine (3 - 2023-2 5 season) 2023 06/11/2020, 05/21/2020 Influenza Vaccine (Season Ended) 2024 04/11/19, 01/22/2019 Pneumococcal vaccine 65+ Completed 04/11/2019, 07/2018 Medical Devices Implanted Type Area Engineering Technical Analyst Device Identifier Shelf Expiration Date Model / Serial / Lot Kit Screw Shoulder Reverse Torque Define - [id number] - [id number] Implanted:Qty: 1 on 05/07/2017 by Aelx Redding MD at [facility] Other - see comments [employer] 11/13/2021 320-20-00 / [id number] / Screw Bone Equinoxe L34 Mm Od4.5 Mm Shoulder Kit Compression Lock Cap Reverse Red - [id number] - [id number] Implanted:Qty: 1 on 05/07/2017 by Alex Redding MD at [facility] Screw [employer] 09/07/2021 320-20-34 / [id number] / Screw 4.5mm 38mm Bone Cmpr Lkng Cap Kit Equinoxe Shldr Grn - [id number] - [id number] Implanted:Qty: 1 on 05/07/2017 by Alex Redding MD at [facility] Screw [employer] 12/27/2021 320-20-38 / [id number] / Cmpnt Glenoid 38mm +4mm Expand Glenosphere Lat Offset - [id number] - [id number] Implanted:Qty: 1 on 05/07/2017 by Alex Redding MD at [facility] [employer] 12/13/2021 320-02-38 / [id number] / Cmpnt Glenoid 38mm +4mm Expand Glenosphere Lat Offset - [id number] - [id number] Implanted:Qty: 1 on 05/07/2017 by Alex Redding MD at [facility] [employer] 04/12/2027 320-02-38 / [id number] / Plate Glenoid Equinoxe Standard Reverse - [id number] - [id number] Implanted:Qty: 1 on 05/07/2017 by Alex Redding MD at [facility] [employer] 03/27/2027 320-15-01 / [id number] / Tray Humeral Adapter Equinoxe +0 Mm Reverse Shoulder System - [id number] - [id number] Implanted:Qty: 1 on 05/07/2017 by Alex Redding MD at [facility] [employer] 03/26/2027 320-10-00 / [id number] / [employer] 320-38-10 Equinoxe 38mm Reverse Constrained Shoulder +0mm Liner Humeral - [id number] Implanted:Qty: 1 on 01/01/2018 by Alex Redding MD at [facility] Right: Shoulder [employer] 04/18/2022 320-38-10 / / [id number] [employer] [id number] Palacos Lv+G Cement 40gm Bone Gentamicin Green - [id number] Implanted:Qty: 1 on 01/01/2018 by Alex Redding MD at [facility] [employer] [id number] / / [employer] [id number] Palacos Lv+G Cement 40gm Bone Gentamicin Green - [id number] Implanted:Qty: 1 on 01/01/2018 by Alex Redding MD at [facility] Right: Shoulder [employer] 10/16/2020 [id number] / / [id number] [employer] 320-20-00 Reverse Torque Define Shoulder Kit Screw - [id number] Implanted:Qty: 1 on 01/01/2018 by Alex Redding MD at [facility] Right: Shoulder [employer] 11/25/2022 320-20-00 / / [id number] [employer] 320-10-00 Equinoxe Reverse Shoulder +0mm Tray Humeral Adapter - [id number] Implanted:Qty: 1 on 01/01/2018 by Alex Redding MD at [facility] Right: Shoulder [employer] 11/12/2027 320-10-00 / / [id number] [employer] 300-01-09 Equinoxe 9mm Press Fit Primary Shoulder Stem Humeral - [id number] Implanted:Qty: 1 on 01/01/2018 by Alex Redding MD at [facility] Right: Shoulder [employer] 08/21/2027 300-01-09 / / [id number] Explanted Type Area Engineering Technical Analyst Device Identifier Shelf Expiration Date Model / Serial / Lot Stem Humeral Equinoxe Od9 Mm Shoulder Press Fit Primary - [id number] - [id number] Implanted:Qty: 1 on 05/07/2017 by Alex Redding MD at [facility] Explanted:Qty: 1 on 01/01/2018 at [facility] Other - see comments [employer] 10/04/2026 300-01-09 / [id number] / Description:EXPLANT DISPOSED OF Liner Humeral Equinoxe +0 Mm Od38 Mm Shoulder Reverse Constrained - [id number] - [id number] Implanted:Qty: 1 on 05/07/2017 by Alex Redding MD at [facility] Explanted:Qty: 1 on 01/01/2018 at [facility] 09/27/2021 320-38-10 / [id number] / Description:EXPLANT DISPOSED OF Procedures Procedure Name Priority Date/Time Associated Diagnosis Comments DIAGNOSTIC MAMMOGRAM BILATERAL W JEFFREY Schedule Routine, Read Routine (OP Routine) 04/09/2020 1:49 PM RIM FIRE PRIMING OPERATOR Disorder of breast, unspecified Breast lump in female from Last 3 Months or Most Recently Relevant to Health Maintenance Results * Diagnostic Mammogram Bilateral W Jeffrey (04/09/2020 1:49 PM RIM FIRE PRIMING OPERATOR) Anatomical Region Laterality Modality Breast Bilateral Mammography 04/09/2020 2:31 PM RIM FIRE PRIMING OPERATOR Impressions 04/09/2020 3:59 PM RIM FIRE PRIMING OPERATOR 1. Correlating with the area of palpable [...] Kathy Baldwin M.D. Narrative 04/09/2020 3:59 PM RIM FIRE PRIMING OPERATOR EXAMINATION: BILATERAL DIGITAL DIAGNOSTIC MAMMOGRAM INCLUDING CAD [...] Most Recently Relevant to Health Maintenance Insurance [facility] MDCR HMO REF [facility] Address: [place] [id number] [place] [address] [employer]HC MEDICARE ADVANT[facility] Address: [address] [address] [place] [address] [employer]HC MEDICARE ADVANTAGE [facility] Address: [facility] [address] [place] [address] Advance Directives For more information, please contact: [phone] * Full Code (Latest Code Status on File) Date Activated Date Inactivated Comments 01/01/2018 8:13 PM 01/02/2018 4:12 PM * Full Code Date Activated Date Inactivated Comments 05/07/2017 6:02 PM 05/08/2017 9:01 PM Care Teams Painter Airbrush Relationship Specialty Start Date End Date Les Salinas DO PCP - General Internal Medicine 05/22/17
--- OUTSIDE RECORDS SUMMARY | 2024-07-25 12:39 | XMS_ITS | Clinical Summary ---
Author Organization [facility] Address [address] [facility], [address] [address] Phone Care Team Providers Care Clay Structure Builder And Servicer Name Role Phone Rita Les Ivan SCHULTZ Primary Care Provider Allergies Active Allergy Reactions Criticality Noted Date Comments Midazolam Swelling 01/04/2018 Versed Medications ALPRAZolam (XANAX) 1 MG Tablet Take 1 mg by mouth. 2 tabs AM, 1/2 tab at noon and 1 tab PM Active POTASSIUM CHLORIDE PO Take 10 mEq by mouth daily. Active Cholecalciferol (VITAMIN D3) 1.25 MG (57819 UT) Capsule 0 Active alendronate (FOSAMAX) 70 MG Tablet every 7 days. 0 Active DULoxetine (CYMBALTA) [address] Particles daily. 0 Active fluticasone (FLONASE) 50 MCG/ACT Suspension daily. 0 Active gabapentin (NEURONTIN) 300 MG Capsule Take 600 mg by mouth 3 times daily. 0 Active lisinopril (PRINIVIL, ZESTRIL) 40 MG Tablet Take 40 mg by mouth every morning. 0 Active traZODone (DESYREL) 150 MG Tablet Take 2 Tabs by mouth nightly. 0 Active SUMAtriptan (IMITREX) 50 MG Tablet once as needed. 1 Active PreviDent 0.2 % Solution RINSE 10ML BY MOUTH FOR 1 MINUTE AT BEDTIMNE AFTER BRUSHING. DO NOT EAT OR DRINK FOR 30 MINS AFTER RINSING 2 Active Clindamycin HCl (CLEOCIN) 300 MG Capsule TAKE 2 CAPSULES BY MOUTH 1 HOUR PRIOR TO APPOINTMENT 2 Active Vibegron 75 MG Tablet Take by mouth daily. Active atorvastatin (Lipitor) 20 MG Tablet Take 20 mg by mouth daily. Active pantoprazole (PROTONIX) 40 MG Tablet Delayed Response Take 1 Tablet by mouth daily. 90 Tablet 1 2 Active Active Problems Problem Noted Date Diagnosed Date Gastroesophageal reflux disease without esophagi tis 10/02/2019 Immunizations Immunization Administration Dates Next Due Covid-19, Mrna, Lnp-s, Pf, 30 Mcg/0.3 Ml Dose (P fizer) 06/11/2020,05/21/2020 Influenza, Injectable, Quadrivalent 01/22/2019 Influenza, Trivalent, Adjuvanted, PF 04/11/2019 Pneumococcal Vaccine - 13 Valent 01/21/2019 Pneumococcal Vaccine Adult - 23 Valent 0 Family History Medical History Relation Name Comments Heart Attack Father Heart Attack Mother Relation Name Status Comments Father Mother Social History Tobacco Use Types Packs/Day Years Used Date Smoking Tobacco: Never Smokeless Tobacco: Never Tobacco Cessation:Counseling Given: No Alcohol Use Standard Drinks/Week Comments No 0 (1 standard drink = 0.6 oz pur e alcohol) Sexually Active Control Partners Comments Not Currently Comments No Sex and Gender Information Value Date Recorded Sex Assigned at Not on file Legal Sex Female 12:15 AM CDT Gender Identity Not on file Sexual Orientation Not on file Occupation Industry Job Start Date Job End Date unemployed Not on file Not on file Not on file Last Filed Vital Signs Vital Sign Reading Time Taken Comments Blood Pressure 131/81 08/29/2021 4:19 PM CDT Pulse 68 08/29/2021 4:19 PM CDT Temperature 36 C (96.8 F) 08/29/2021 1:10 PM CDT Respiratory Rate 16 08/29/2021 4:19 PM CDT Oxygen Saturation 95% 08/29/2021 4:19 PM CDT Inhaled Oxygen Concentration - - Weight 113.4 kg (250 lb) 07/25/2021 2:39 PM CDT Height 162.6 cm (5' 4 ) 09/22/2020 12:55 PM CDT Body Mass Index 42.91 09/22/2020 12:55 PM CDT Plan of Treatment Health Maintenance Due Date Last Done Comments DEXA Bone Density 1950 Hepatitis C Virus (HCV) Screening 1950 Mammogram 01/17/1960 Cologuard 01/17/2000 Immunochemical Fecal Occult Blood 01/17/2000 Zoster Immunization (1 of 2) 01/17/2000 Influenza Immunization (#1) 2023 04/11/2019, 1 03/24/2018 SARS-COV-2 Immunization ( season) 2023 07/19/2021, 12/19/2020, 06/11/2020, Additional history exists Respiratory Syncytial Virus (RSV) Immunization (Adult) (1 - 1-dose 75+ series) 2025 Colonoscopy 02/22/2028 02/21/2018 Colorectal Cancer Screening 02/22/2028 02/21/2018 Pneumococcal Immunization (50+ years) Completed 04/11/2019, 01/21/2019 Pneumococcal Immunization Combined Discontinued 04/11/2019, 01/21/2019 DTaP/Tdap/Td Immunization Discontinued 09/30/2020 TdaP Immunization Completed 09/30/2020 Hepatitis B Immunization Aged Out No longer eligible based on patient's age to complete this topic Meningococcal Immunization (ACWY) Aged Out No longer eligible based on patient's age to complete this topic Rotavirus Immunization Aged Out No lo nger eligible based on patient's age to complete this topic Procedures Procedure Name Priority Date/Time Associated Diagnosis Comments COLONOSCOPY Routine 02/21/2018 from Last 3 Months or Most Recently Relevant to Health Maintenance Results * COLONOSCOPY (02/21/2018) Mabel Fisher DO PROCEDURE/MINOR SURGICAL ORDERA BLES Final Result from Last 3 Months or Most Recently Relevant to Health Maintenance Insurance MEDICARE C [facility] on file Advance Directives * Full Code (Latest Code Status on File) Date Activated Date Inactivated Comments 02/06/2018 2:08 PM 08/29/2021 12:50 PM Care Teams Clay Structure Builder And Servicer Relationship Specialty Start Date End Date Les Salinas DO [facility] [facility] [address] PCP - General Internal Medicine 01/03/18
--- OUTSIDE RECORDS SUMMARY | 2024-07-25 12:39 | XMS_ITS | Encounter Summary ---
Author Organization [facility] Address [address] [facility] [place] [address] Phone Care Team Providers Care Feather Cutting Machine Feeder Name Role Phone Les Salinas DO Primary Care Provider Reason for Visit * Reason Comments Medication Refill Encounter Details Date Type Department Care Team (Late st Contact Info) Description 04/16/2020 Refill [facility] - Gastroenterology - [address] [place] [address] Mesha Honeycutt Magalys, PAC [address] [place] [address] Medication Refill Social History Tobacco Use Types [...] Telephone Encounter - Valdez Greene CMA - 04/16/2020 3:09 PM [facility] This was a duplicate and refill already sent in [facility] documented in this encounter Plan of Treatment Not on file documented as of this encounter Visit Diagnoses Not on filedocumented in this encounter Care Teams Feather Cutting Machine Feeder Relationship Specialty Start Date End Date Les Salinas DO [facility] [facility] [address] [facility] [place] [id number] PCP - General Internal Medicine 01/03/18 documented as of this encounter
[2024-07-25 19:57] LABS: Basophils Percent Auto 0.7 % (0.2-1.2); Eosinophils Absolute Auto 0.2 K/mm3 (0-0.3); Eosinophils Percent Auto 3.6 % (0-4.4); Hematocrit 38.8 % (37.0-47.0); Hemoglobin 12.7 g/dL (12.0-15.0); Immature Granulocyte Absolute 0.02 K/mm3 (0.00-0.031); Immature Granulocyte Percent A 0.4 % (0-0.5); Lymphocytes Percent Auto 32.7 % (18.3-44.2); Mean Corpuscular HGB Conc 32.7 g/dl (32-36); Mean Corpuscular Hemoglobin 31.1 pg (26-34); Mean Corpuscular Volume 95.1 fl (80-100); Mean Platelet Volume 8.9 fl (7.4-10.4); Monocytes Absolute Auto 0.4 K/mm3 (0.1-0.6); Monocytes Percent Auto 7.8 % (2.6-8.5); Neutrophils Percent Auto 54.8 % (45.5-73.1); Platelet Count Result 231 k/mm3 (150-375); Red Blood Count 4.08 M/mm3 (4.2-5.4); Red Cell Distribution Width 13.7 % (11.5-14.5); White Blood Count 5.5 K/mm3 (4.5-10.0)
[2024-07-25 20:29] LABS: Alanine Aminotransferase 21 U/L (6-35); Albumin Level 4.5 g/dL (3.5-5.1); Alkaline Phosphatase 66 U/L (38-126); Anion Gap 10 mmol/L (4-12); Aspartate Amino Transferase 36 U/L (14-36); Bilirubin,Total 0.5 mg/dL (0.2-1.3); Blood Urea Nitrogen 26 mg/dL (7-17); Calcium 10.5 mg/dL (8.4-10.2); Carbon Dioxide 28 mmol/L (22-30); Chloride 99 mmol/L (98-107); Cholesterol 205 mg/dL (0-200); Estimated Glomerular Filt Rate 56; Glucose 90 mg/dL (65-110); HDL Direct 81 mg/dL; Potassium 5.1 mmol/L (3.4-5.0); Sodium 137 mmol/L (137-145); Triglycerides 128 mg/dL (<150)
[2024-07-25 20:40] LABS: LDL Cholesterol Direct 82 mg/dL
== END 2024-07-25 12:35 | disposition home or self-care (01) ==
LOC: ANHGOSHLAB 12:35
PROVIDERS: PCP Internal Medicine; Visit Provider Nurse Practitioner
DX: E78.2 Mixed hyperlipidemia (principal); Z13.29 Encounter for screening for other suspected endocrine disorder
CPT/HCPCS: 36415; 80053; 80061; 85025

== ENCOUNTER 2024-10-07 14:41 | Outpatient (NON) | payer MEDICARE, SELFPAY ==
--- OUTSIDE RECORDS SUMMARY | 2024-10-07 14:44 | XMS_ITS | Clinical Summary ---
Author Organization [facility] Address [address] [facility], [address] [address] Phone Care Team Providers Care Object Oriented Programmer Name Role Phone Rita Les Ivan SCHULTZ Primary Care Provider Allergies Active Allergy Reactions Criticality Noted Date Comments Midazolam Swelling 01/04/2018 Versed Medications ALPRAZolam (XANAX) 1 MG Tablet Take 1 mg by mouth. 2 tabs AM, 1/2 tab at noon and 1 tab PM Active POTASSIUM CHLORIDE PO Take 10 mEq by mouth daily. Active Cholecalciferol (VITAMIN D3) 1.25 MG (04232 UT) Capsule 0 Active alendronate (FOSAMAX) 70 [...] 2:39 PM CDT Height 162.6 cm (5' 4) 09/22/2020 12:55 PM CDT Body Mass Index 42.91 09/22/2020 12:55 PM CDT Plan of Treatment Health Maintenance Due Date Last Done Comments Hepatitis C Virus (HCV) Screening 1950 Mammogram 01/17/1960 Cologuard 1995 Immunochemical Fecal Occult Blood 1995 Zoster Immunization (1 of 2) 01/17/2000 SARS-COV-2 Immunization ( season) 2023 07/19/2021, 12/19/2020, 06/11/2020, Additional history exists Influenza Immunization (#1) 2024 04/11/2019, 1 03/24/2018 Respiratory Syncytial Virus (RSV) Immunization (Adult) (1 - 1-dose 75+ series) 2025 Colonoscopy 02/22/2028 02/21/2018 Colorectal Cancer Screening 02/22/2028 Pneumococcal Immunization (50+ years) Completed 04/11/2019, 01/21/2019 Pneumococcal Immunization Combined Discontinued 04/11/2019, 01/21/2019 DTaP/Tdap/Td Immunization Discontinued 09/30/2020 TdaP Immunization Completed 09/30/2020 Hepatitis B Immunization Aged Out No longer eligible based on patient's age to complete this topic Human Papillomavirus (HPV) Immunization Aged Out No longer eligible based [...] Relevant to Health Maintenance Insurance MEDICARE C [employer] on file Advance Directives * Full Code (Latest Code Status on File) Date Activated Date Inactivated Comments 02/06/2018 2:08 PM 08/29/2021 12:50 PM Care Teams Object Oriented Programmer Relationship Specialty Start Date End Date Les Salinas DO [address] [facility] [place] [address] PCP - General Internal Medicine 01/03/18
--- OUTSIDE RECORDS SUMMARY | 2024-10-07 14:44 | XMS_ITS | Encounter Summary ---
Author Organization [facility] Address [address] [facility] [place] [address] Phone Care Team Providers Care It Support Technician Name Role Phone Les Salinas DO Primary Care Provider Reason for Visit * Reason Comments Medication Refill Encounter Details Date Type Department Care Team (Late st Contact Info) Description 08/31/2020 Refill [facility] - Gastroenterology [facility] [address] [place] [address] Mesha Honeycutt Magalys, PAC [address] [place] [address] Medication Refill Social History Tobacco Use Types [...] on filedocumented in this encounter Care Teams It Support Technician Relationship Specialty Start Date End Date Les Salinas DO [address] [facility] [place] [address] PCP - General Internal Medicine 01/03/18 documented as of this encounter
--- OUTSIDE RECORDS SUMMARY | 2024-10-07 14:44 | XMS_ITS | Clinical Summary ---
Author Organization [facility] Address [address] [place] [id number] Care Team Providers Care Boat Assembler Name Role Phone Unavailable Primary Care Provider [...]
--- OUTSIDE RECORDS SUMMARY | 2024-10-07 14:44 | XMS_ITS | Clinical Summary ---
Author Organization [address] Address [address] [place] [address] Care Team Providers Care Mill Laborer Name Role Phone Les Salinas DO Primary Care Provider +1- [phone] Allergies Active Allergy Reactions Criticality Noted Date [...] 11/15/2020 Assessment & Plan (02/01/2021 2:52 PM SENIOR NETWORK SECURITY ARCHITECT): Patient continues at this time on propranolol [...] request for MRI brain report retrieval from [facility] where she allegedly had the MRI completed. I have also started her on propranolol 20 mg b.i.d. for migraine prophylaxis. She will follow-up in neurology clinic in 6 months for reassessment on propranolol. Breast mass 04/09/2020 Aftercare following right sh oulder joint replacement surgery 01/02/2018 Loosening of shoulder joint prosthesis 8 Overview (12/19/2017): Added automatically from request for surgery [id number] Arthritis of knee, right 11/22/2017 Overview (11/22/2017): Added automatically from request for surgery [id number] Closed fracture of right proximal humerus 2017 Overview (05/04/2017): Added automatically from request for surgery [id number] Morbid obesity with BMI of 40.0-44.9, adult 04/19 Abnormal mammogram 12/05/2016 Allergy, drug 04/28/2016 Peripheral neuropathy Assessment & Plan (02/01/2021 2:52 PM SENIOR NETWORK SECURITY ARCHITECT): Patient has history of peripheral neuropathy manifested [...] on file Legal Sex Female 11:43 PM SENIOR NETWORK SECURITY ARCHITECT Gender Identity Not on file Sexual Orientation [...] 4:55 PM CDT Height 162.6 cm (5' 4) 07/27/2022 4:55 PM CDT Body Mass Index [...] 04/11/2019, 07/2018 Medical Devices Implanted Type Area Lumber Stacker Operator Device Identifier Shelf Expiration Date Model / Serial / Lot Kit Screw Shoulder Reverse Torque Define - [id number] - [id number] Implanted:Qty: 1 on 05/07/2017 by Alex Redding MD at [facility] Other - see comments [employer] 11/13/2021 320-20-00 / [id number] / Screw Bone Equinoxe L34 Mm Od4.5 Mm Shoulder Kit Compression Lock Cap Reverse Red - [id number] - [id number] Implanted:Qty: 1 on 05/07/2017 by Alex Redding MD at [facility] Screw [employer] 09/07/2021 320-20-34 / [id number] / Screw 4.5mm 38mm Bone Cmpr Lkng Cap Kit Equinoxe Shldr Grn - [id number] - [id number] Implanted:Qty: 1 on 05/07/2017 by Alex Redding MD at [facility] Screw [employer] 12/27/2021 320-20-38 / [id number] / Cmpnt Glenoid 38mm +4mm Expand Glenosphere Lat Offset - [id number] - [id number] Implanted:Qty: 1 on 05/07/2017 by Alex Redding MD at [facility] [employer] 12/13/2021 320-02-38 / [id number] / Cmpnt Glenoid 38mm +4mm Expand Glenosphere Lat Offset - [id number] - [id number] Implanted:Qty: 1 on 05/07/2017 by Alex Redding MD at [facility] [employer] 04/12/2027 320-02-38 / [id number] / Plate Glenoid Equinoxe Standard Reverse - [id number] - [id number] Implanted:Qty: 1 on 05/07/2017 by Alex Redding MD at [facility] [employer] 03/27/2027 320-15-01 / [id number] / Tray Humeral Adapter Equinoxe +0 Mm Reverse Shoulder System - [id number] - [id number] Implanted:Qty: 1 on 05/07/2017 by Alex Redding MD at [facility] [employer] 03/26/2027 320-10-00 / [id number] / [employer] 320-38-10 Equinoxe 38mm Reverse Constrained Shoulder +0mm Liner Humeral - [id number] Implanted:Qty: 1 on 01/01/2018 by Alex Redding MD at [facility] Right: Shoulder [employer] 04/18/2022 320-38-10 / / [id number] [employer] [id number] Palacos Lv+G Cement 40gm Bone Gentamicin Green - [id number] Implanted:Qty: 1 on 01/01/2018 by Alex Redding MD at [facility] [employer] [id number] / / [employer] [id number] Palacos Lv+G Cement 40gm Bone Gentamicin Green - [id number] Implanted:Qty: 1 on 01/01/2018 by Alex Redding MD at [facility] Right: Shoulder [employer] 10/16/2020 [id number] / / [id number] [employer] 320-20-00 Reverse Torque Define Shoulder Kit Screw - [id number] Implanted:Qty: 1 on 01/01/2018 by Alex Redding MD at [facility] Right: Shoulder [employer] 11/25/2022 320-20-00 / / [id number] [employer] 320-10-00 Equinoxe Reverse Shoulder +0mm Tray Humeral Adapter - [id number] Implanted:Qty: 1 on 01/01/2018 by Alex Redding MD at [facility] Right: Shoulder [employer] 11/12/2027 320-10-00 / / [id number] [employer] 300-01-09 Equinoxe 9mm Press Fit Primary Shoulder Stem Humeral - [id number] Implanted:Qty: 1 on 01/01/2018 by Alex Redding MD at [facility] Right: Shoulder [employer] 08/21/2027 300-01-09 / / [id number] Explanted Type Area Lumber Stacker Operator Device Identifier Shelf Expiration Date Model / Serial / Lot Stem Humeral Equinoxe Od9 Mm Shoulder Press Fit Primary - [id number] - [id number] Implanted:Qty: 1 on 05/07/2017 by Alex Redding MD at [facility] Explanted:Qty: 1 on 01/01/2018 at [facility] Other - see comments [employer] 10/04/2026 300-01-09 / [id number] / Description:EXPLANT DISPOSED OF Liner Humeral Equinoxe +0 Mm Od38 Mm Shoulder Reverse Constrained - [id number] - [id number] Implanted:Qty: 1 on 05/07/2017 by Alex Redding MD at [facility] Explanted:Qty: 1 on 01/01/2018 at [facility] 09/27/2021 320-38-10 / [id number] / Description:EXPLANT DISPOSED OF Procedures Procedure Name Priority Date/Time Associated Diagnosis Comments DIAGNOSTIC MAMMOGRAM BILATERAL W JEFFREY Schedule Routine, Read Routine (OP Routine) 04/09/2020 1:49 PM SENIOR NETWORK SECURITY ARCHITECT Disorder of breast, unspecified Breast lump in female from Last 3 Months or Most Recently Relevant to Health Maintenance Results * Diagnostic Mammogram Bilateral W Jeffrey (04/09/2020 1:49 PM SENIOR NETWORK SECURITY ARCHITECT) Anatomical Region Laterality Modality Breast Bilateral Mammography 04/09/2020 2:31 PM SENIOR NETWORK SECURITY ARCHITECT Impressions 04/09/2020 3:59 PM SENIOR NETWORK SECURITY ARCHITECT 1. Correlating with the area of palpable [...] Kathy Baldwin M.D. Narrative 04/09/2020 3:59 PM SENIOR NETWORK SECURITY ARCHITECT EXAMINATION: BILATERAL DIGITAL DIAGNOSTIC MAMMOGRAM INCLUDING CAD [...] Most Recently Relevant to Health Maintenance Insurance [facility] HMO REF UHC MEDICARE ADVANTAGE [place] [address] UHC MEDICARE ADVANTAGE Advance Directives For more information, please contact: [phone] * Full Code (Latest Code Status on File) Date Activated Date Inactivated Comments 01/01/2018 8:13 PM 01/02/2018 4:12 PM * Full Code Date Activated Date Inactivated Comments 05/07/2017 6:02 PM 05/08/2017 9:01 PM Care Teams Mill Laborer Relationship Specialty Start Date End Date Les Salinas DO PCP - General Internal Medicine 05/22/17
--- OUTSIDE RECORDS SUMMARY | 2024-10-07 14:44 | XMS_ITS | Patient Health Record ---
Author Organization [facility] [address] [address] Address [address] [place] [address] Care Team Providers Care Software Product Manager Name Role Phone Kosta Rod Unavailable [phone] Sussy Posey Unavailable [phone] Sarah Beth Zambrano Unavailable [phone] Allergies Allergen (clinical drug ingredient) Drug/Non Drug Allergy documented on EMR Reaction Allergy Type Onset Date Status VERSED (uncoded) Unknown Allergy 05/29/2023 Ac tive Reason For Referral No Information Medications Medication SIG (Take, Route, Frequency, Duration) Notes Start Date End Date Status Docusate Sodium 100 MG Oral 05/29/2023 Active DULoxetine HCl 60 MG 1 capsule Oral Once a day; Duration: 90 days 05/29/2023 Active Atorvastatin Calcium 20 MG 1 tablet Oral Once a day 05/29/2023 Active SUMAtriptan Succinate 100 MG 1 tablet as needed, may take second dose at least 2 hours after first dose up to 2 tablets per day as needed Oral Once a day As needed 05/29/2023 Active Fluticasone Propionate Diskus 50 MCG/ACT Inhalation *Reorder from [facility] for eRx and Interaction Alerts* 05/29/2023 Active PreviDent 5000 Booster Plus 1.1 % Dental 05/29/2023 Active QUEtiapine Fumarate 200 MG 2 tablets Oral Once a day; Duration: 90 days Active traZODone HCl 100 MG 2 tablet at bedtime Oral Once a day; Duration: 30 days appointment needed Active Alendronate Sodium 70 MG 1 tablet 30 minutes before the first food, beverage or medicine of the day with plain water Oral 05/29/2023 Active hydrOXYzine HCl 10 MG 1 tablet Oral three times a day; Duration: 30 days appointment needed Active Gabapentin 300 MG 2 capsule Oral three times a day 05/29/2023 Active Lisinopril 40 MG 1 tablet Oral Once a day 05/29/2023 Active Propranolol HCl 20 MG 1 tablet Oral three times a day; Duration: 90 days Active Omeprazole 40 MG 1 capsule 1/2 to 1 hour before morning meal Oral TWICE A DAY 05/29/2023 Active Immunizations Vaccine Route Administration Date Status Comme nts Tdap Unknown 09/30/2020 Administered Pneumococcal polysaccharide PPV23 Unknown 04/11/2019 Ad ministered Pneumococcal conjugate PCV 13 Unknown 01/21/2019 Admini stered Pfizer-Biontech Covid-19 Vac cine 1st dose Unknown 07/19/2021 Administered Pfizer Biontech Covid-19 Vac cine 2nd dose Unknown 05/21/2020 Administered Pfizer Biontech Covid-19 Vac cine 2nd dose Unknown 06/11/2020 Administered Pfizer Biontech Covid-19 Vac cine 2nd dose Unknown 12/19/2020 Administered Infuenza, trivalent, recombi nant, preservative free Unknown 04/11/2019 Administered Influenza virus vaccine, quadrivalent (IIV4), split virus, 0.25 mL dosage Unknown 01/22/2019 Administered Social History Tobacco Use: Social History [...] Severe recurrent major depression without psychotic features (57239092) Major depressive disorder, recurrent severe without psychotic features (F33.2) Active confirmed Problem Generalized anxiety disorder (15823943) Generalized anxiety disorder (F41.1) 05/31/19 24 Active confirmed Problem Primary insomnia (1510506) Primary insomnia (F51.01) 09/28/19 23 Active confirmed Problem Screening for cardiovascular system disease (381299115) Encounter for screening for cardiovascular disorders (Z13.6) Active confirmed Problem Long-term current use of drug therapy (389575890) Other detention (current) drug therapy (Z79.899) 04/14/19 21 Active confirmed Problem Depression Screening (125964383) Encounter for screening for depression (Z13.31) Active confirmed Problem Mild recurrent major depression (70554646) MDD (major depressive disorder), recurrent episode, mild (F33.0) Active confirmed Vital Signs Heart Rate 79 /min 06/13/2024 Height-cm 162.56 cm 06/13/2024 Blood pressure diastolic 73 mm Hg 06/13/2024 Weight-kg 99.79 kg 06/13/2024 Height 64.00 in 06/13/2024 Blood pressure systolic 111 mm Hg 06/13/2024 Weight 220 lbs 06/13/2024 BMI 37.76 kg/m2 06/13/2024 Encounters Encounter Location Date Provider Diagnosis [facility] [place] [address] [address] 02/29/2024 Sussy Posey Generalized anxiety disorder F41.1 ; Major depressive disorder, recurrent severe without psychotic features F33.2 and Primary insomnia F51.01 [facility] [place] [address] [facility] [address] [address] 06/13/2024 Sarah Beth Zambrano Encounter for screen ing for depression Z13.31 ; Encounter for screening for cardiovascular disorders Z13.6 ; MDD (major depressive disorder), recurrent episode, mild F33.0 ; Generalized anxiety disorder F41.1 ; Primary insomnia F51.01 and Other detention (current) drug therapy Z79.899 [facility] [place] [address] [facility] [address] [facility] [address] [place] [address] 11/13/2023 Sussy Kalpehs [facility] [place] [address] [facility] [address] [facility] [address] [place] [address] 12/14/20[facility] [address] [place] [address] 04/17/2024 Sussy Posey Major depressive disorder, recurrent severe without psychotic features F33.2 and Generalized anxiety disorder F41.1 [facility] [address] [place] [address] 09/11/2024 Sarah Beth Zambrano Assessments Encounter Date Diagnosis (ICD Code) Assessment Notes Treatment Notes Treatment Clinical Notes Section Notes 04/17/2024 Major depressive disorder, recurrent severe without psychotic features (ICD-10 - F33.2) 04/17/2024 Generalized anxiety disorder (ICD-10 - F41.1) 06/13/2024 [...] neurotoxicity and interactions with prescribed medications. 02/29/2024 Major depressive disorder, recurrent severe without psychotic features (ICD-10 - F33.2) 02/29/2024 Generalized anxiety disorder (ICD-10 - F41.1) 02/29/2024 Primary insomnia (ICD-10 - F51.01) 06/13/2024 Encounter for screening for cardiovascular disorders [...] neurotoxicity and interactions with prescribed medications. 06/13/2024 MDD (major depressive disorder), recurrent episode, [...] and interactions with prescribed medications. 06/13/2024 Other detention (current) drug therapy (ICD-10 - Z79.899) Medication [...] Plan Of Treatment Next Appt Details Provider Name:Kosta Rogelio Rod , 10/13/2024 02:00:00 PM, [address] [facility] [address], [facility] [address], [place], [address], Insurance Providers Payer Name Payer Address Payer Phone Subscriber Number Group Number Insured Name Patient Relationship to Insured Coverage Start Date Coverage End Date [facility] [address] [place] [address] [id number] LYNDSEY SHEA Self - patient is the insured Medical (General) History Medical History History ICD Code Problems: Essential hypertension Gastroesophageal reflux disease Generalized anxiety disorder Hyperlipidemia Long-term current use of drug therapy Obesity Primary insomnia Severe recurrent major depression withou t psychotic features , Surgical History Surgery Date(Month/Year) Removal of gallbladder (89942) Tonsilectomy/adenoids 05/17/1954 Breast surgery () 05/18/2007 Removal of gallbladder (26015) 4 Xcapsl ctrc rmvl cplx wo ecp (89477)
--- OUTSIDE RECORDS SUMMARY | 2024-10-07 14:44 | XMS_ITS | Referral Summary ---
Author Organization [address] Address [address] [place] [address] Care Team Providers Care Media Job Titles Name Role Phone Les Salinas DO Primary Care Provider +1- [phone] Allergies Active Allergy Reactions Criticality Noted Date [...] 11/15/2020 Assessment & Plan (02/01/2021 2:52 PM ASTRONOMY PROFESSOR): Patient continues at this time on propranolol [...] request for MRI brain report retrieval from [facility] where she allegedly had the MRI completed. I have also started her on propranolol 20 mg b.i.d. for migraine prophylaxis. She will follow-up in neurology clinic in 6 months for reassessment on propranolol. Breast mass 04/09/2020 Aftercare following right sh oulder joint replacement surgery 01/02/2018 Loosening of shoulder joint prosthesis 8 Overview (12/19/2017): Added automatically from request for surgery [id number] Arthritis of knee, right 11/22/2017 Overview (11/22/2017): Added automatically from request for surgery [id number] Closed fracture of right proximal humerus 2017 Overview (05/04/2017): Added automatically from request for surgery [id number] Morbid obesity with BMI of 40.0-44.9, adult 04/19 Abnormal mammogram 12/05/2016 Allergy, drug 04/28/2016 Peripheral neuropathy Assessment & Plan (02/01/2021 2:52 PM ASTRONOMY PROFESSOR): Patient has history of peripheral neuropathy manifested [...] on file Legal Sex Female 11:43 PM ASTRONOMY PROFESSOR Gender Identity Not on file Sexual Orientation [...] on file Medical Devices Implanted Type Area Electric Meter Repairer Helper Device Identifier Shelf Expiration Date Model / Serial / Lot Kit Screw Shoulder Reverse Torque Define - [id number] - [id number] Implanted:Qty: 1 on 05/07/2017 by Alex Redding MD at [facility] Other - see comments [employer] 11/13/2021 320-20-00 / [id number] / Screw Bone Equinoxe L34 Mm Od4.5 Mm Shoulder Kit Compression Lock Cap Reverse Red - [id number] - [id number] Implanted:Qty: 1 on 05/07/2017 by Alex Redding MD at [facility] Screw [employer] 09/07/2021 320-20-34 / [id number] / Screw 4.5mm 38mm Bone Cmpr Lkng Cap Kit Equinoxe Shldr Grn - [id number] - [id number] Implanted:Qty: 1 on 05/07/2017 by Alex Redding MD at [facility] Screw [employer] 12/27/2021 320-20-38 / [id number] / Cmpnt Glenoid 38mm +4mm Expand Glenosphere Lat Offset - [id number] - [id number] Implanted:Qty: 1 on 05/07/2017 by Alex Redding MD at [facility] 12/13/2021 320-02-38 / [id number] / Cmpnt Glenoid 38mm +4mm Expand Glenosphere Lat Offset - [id number] - [id number] Implanted:Qty: 1 on 05/07/2017 by Alex Redding MD at [facility] 04/12/2027 320-02-38 / [id number] / Plate Glenoid Equinoxe Standard Reverse - [id number] - [id number] Implanted:Qty: 1 on 05/07/2017 by Alex Redding MD at [facility] 03/27/2027 320-15- / [id number] / Tray Humeral Adapter Equinoxe +0 Mm Reverse Shoulder System - [id number] - [id number] Implanted:Qty: 1 on 05/07/2017 by Alex Redding MD at [facility] 03/26/2027 320-10-00 / [id number] / [employer] 320-38-10 Equinoxe 38mm Reverse Constrained Shoulder +0mm Liner Humeral - [id number] Implanted:Qty: 1 on 01/01/2018 by Alex Redding MD at [facility] Right: Shoulder [employer] 04/18/2022 320-38-10 / / [id number] [employer] [id number] Palacos Lv+G Cement 40gm Bone Gentamicin Green - [id number] Implanted:Qty: 1 on 01/01/2018 by Alex Redding MD at [facility] [employer] [id number] / / [employer] [id number] Palacos Lv+G Cement 40gm Bone Gentamicin Green - [id number] Implanted:Qty: 1 on 01/01/2018 by Alex Redding MD at [facility] Right: Shoulder [employer] 10/16/2020 [id number] / / [id number] [employer] 320-20-00 Reverse Torque Define Shoulder Kit Screw - [id number] Implanted:Qty: 1 on 01/01/2018 by Alex Redding MD at [facility] Right: Shoulder [employer] 11/25/2022 320-20-00 / / [id number] [employer] 320-10-00 Equinoxe Reverse Shoulder +0mm Tray Humeral Adapter - [id number] Implanted:Qty: 1 on 01/01/2018 by Alex Redding MD at [facility] Right: Shoulder [employer] 11/12/2027 320-10-00 / / [id number] [employer] 300-01-09 Equinoxe 9mm Press Fit Primary Shoulder Stem Humeral - [id number] Implanted:Qty: 1 on 01/01/2018 by Aelx Redding MD at [facility] Right: Shoulder [employer] 08/21/2027 300-01-09 / / [id number] Explanted Type Area Electric Meter Repairer Helper Device Identifier Shelf Expiration Date Model / Serial / Lot Stem Humeral Equinoxe Od9 Mm Shoulder Press Fit Primary - [id number] - [id number] Implanted:Qty: 1 on 05/07/2017 by Alex Redding MD at [facility] Explanted:Qty: 1 on 01/01/2018 at [facility] Other - see comments [employer] 10/04/2026 300-01-09 / [id number] / Description:EXPLANT DISPOSED OF Liner Humeral Equinoxe +0 Mm Od38 Mm Shoulder Reverse Constrained - [id number] - [id number] Implanted:Qty: 1 on 05/07/2017 by Alex Redding MD at [facility] Explanted:Qty: 1 on 01/01/2018 at [facility] [employer] 09/27/2021 320-38-10 / [id number] / Description:EXPLANT DISPOSED OF Procedures Procedure Name Priority Date/Time Associated Diagnosis Comments DIAGNOSTIC MAMMOGRAM BILATERAL W JEFFREY Schedule Routine, Read Routine (OP Routine) 04/09/2020 1:49 PM ASTRONOMY PROFESSOR Disorder of breast, unspecified Breast lump in female from Last 3 Months or Most Recently Relevant to Health Maintenance Results * Diagnostic Mammogram Bilateral W Jeffrey (04/09/2020 1:49 PM ASTRONOMY PROFESSOR) Anatomical Region Laterality Modality Breast Bilateral Mammography 04/09/2020 2:31 PM ASTRONOMY PROFESSOR Impressions 04/09/2020 3:59 PM ASTRONOMY PROFESSOR 1. Correlating with the area of palpable [...] Kathy Baldwin M.D. Narrative 04/09/2020 3:59 PM ASTRONOMY PROFESSOR EXAMINATION: BILATERAL DIGITAL DIAGNOSTIC MAMMOGRAM INCLUDING CAD [...] Most Recently Relevant to Health Maintenance [facility] UHC MEDICARE ADVANTAGE [facility] MEDICARE ADVANTAGE Advance Directives For more information, please contact: [phone] * Full Code (Latest Code Status on File) Date Activated Date Inactivated Comments 01/01/2018 8:13 PM 01/02/2018 4:12 PM * Full Code Date Activated Date Inactivated Comments 05/07/2017 6:02 PM 05/08/2017 9:01 PM Care Teams Media Job Titles Relationship Specialty Start Date End Date Les Salinas DO PCP - General Internal Medicine 05/22/17
--- OUTSIDE RECORDS SUMMARY | 2024-10-07 14:45 | XMS_ITS | Encounter Summary ---
Author Organization [facility] Address [address] [facility] [place] [address] Phone Care Team Providers Care Trial Attorney Name Role Phone Les Salinas DO Primary Care Provider Reason for Visit * Reason Comments Medication Refill Encounter Details Date Type Department Care Team (Late st Contact Info) Description 04/16/2020 Refill [facility] - Gastroenterology - [place] [address] [place] [address] Mesha Honeycutt Magalys, PAC [address] [place] [address] Medication Refill Social History Tobacco Use Types [...] Valdez Greene CMA - 04/16/2020 3:09 PM TRAINMAN This was a duplicate and refill already sent in [facility] documented in this encounter Plan of Treatment Not on file documented as of this encounter Visit Diagnoses Not on filedocumented in this encounter Care Teams Trial Attorney Relationship Specialty Start Date End Date Les Salinas DO [facility] [facility] [address] [facility], [place] [id number] PCP - General Internal Medicine 01/03/18 documented as of this encounter
[2024-10-07 19:56] LABS: Add Urine Microscopic? YES; Appearance Urine Turbid (Clear); Glucose Urine UA Negative (Negative); Leukocyte Esterase Ur 3+ LEU/UL (Negative); Nitrate Urine Positive (Negative); Specific Grav Ur 1.012 (1.001-1.035)
== END 2024-10-07 14:42 | disposition home or self-care (01) ==
LOC: ANHGOSHLAB 14:41
PROVIDERS: PCP Internal Medicine; Visit Provider Nurse Practitioner
DX: R30.0 Dysuria (principal); R39.9 Unspecified symptoms and signs involving the genitourinary system
CPT/HCPCS: 81001; 87086

== ENCOUNTER 2024-11-14 14:41 | Outpatient (CLI) | payer MEDICARE, SELFPAY ==
--- OUTSIDE RECORDS SUMMARY | 2009-04-07 05:30 | XMS_ITS | Continuity of Care Document ---
Author Organization [facility] [place] Address [address] [place] [address] Phone Care Team Providers Care Overlock Waistline Joiner Name Role Phone Mayur Pradip Unavailable Unavailable Procedures Procedure Date Eye Exam & Treatment Refraction Office/outpatient Visit, Est Eye Exam, New Patient Refraction Advance Directives Directive Yes / No Effective Date File Name No Information Encounters Encounter Description Practice Location Reason(s) For Visit Diagnoses Date Provider Providers Copied on Encounter [facility], [address] [place] [address] [address], [place], [place], [id number], [place] tel:[phone] [facility] No Information 0-201 0 Krishnasamy Pradip. [address], [facility], [place]. tel:[phone] Office/outpat ient Visit, Est [facility], [address], [place], [place], [id number], [place] tel:[phone] [facility] No Information 2-200 9 Krishnasamy Pradip. 2421 [facility] [address], [place], [address], [place]. tel:[phone] [facility], [address], [place], [place], [id number], [place] tel:[phone] [facility] No Information 0-200 8 Mayur Moseley. [address] [employer] [address], [address], [place]. tel:[phone] Family History Family Member Type Diagnosis Age At Onset No Information Payers Payer name Insurance type Covered democrat ID Authoriza tion(s) No Information Social History [...]
--- OUTSIDE RECORDS SUMMARY | 2021-02-14 10:41 | XMS_ITS | Continuity of Care Document ---
Author Organization [facility] Address [address] [place] [address] Phone Care Team Providers Care Podiatric Medicine Professor Name Role Phone Shital Lazo MD Unavailable [...] Diagnoses Date Provider Providers Copied on Encounter [facility], [address], [place], [place], [address] , [place] tel: [phone] [facility] No Information 1 Clifton Isaacs. [address], [address], [place], [place], [address]. tel:[phone] [facility], [address], [place], [place], [address] , [place] tel: [phone] Conversion Department No Information 1 Conversion Doctor. [address] [facility], [place], [address], [place]. [facility], [address], [place], [place], [address] , tel: [phone] [facility] ACUTE URI NOSSCREEN-DIABETE S MELLITUSDEPRESSIV E DISORDER NEC 0 Brunlouis Isaacs. [address], [address], [place], [place], [address]. tel:[phone] [facility], [address], [place], [place], [address] , [place] tel: [phone] [facility] MGRN WO AURA WO NTRC MGRCA IN SITU BREAST 9 Ravin Johanna. [address] [facility], [place], [place], [address]. tel: [phone] [facility], [address], [place], [place], [address] , [place] tel: [phone] [facility] VACCIN FOR INFLUENZAND VAC STRPTCS PNEUMNI BNEUROPATHY DUE TO DRUGS 9 Clifton Isaacs. [address], [facility] [address], [place], [place], [address]. tel:[phone] [facility], [address], [place], [address] , [place] tel: [phone] [facility] MALAISE AND FATIGUE NEC 9 Clifton Isaacs. [address], [facility] [address], [place], [place], [address]. tel: [phone] [facility], [address], [place], [place], [address] , [place] tel: [phone] [facility] SCREEN LIPOID DISORDERS 9 Clifton Isaacs. [address], [facility] [address], [place], [place], [address]. tel:[phone] [facility], [address], [place], [place], [address] , [place] tel: [phone] [facility] JOINT PAIN-UNSPEC 2-200 7 Clifton Isaacs. [address], [facility] [address], [place], [place], [address]. tel:[phone] [facility], [address], [place], [place], [address] , [place] tel: [phone] [facility] MGRN W AURA WO NTRC MGRN 2-200 7 [facility]. [address] [facility], [place], [place], [address]. tel:[phone] [facility], [address], [place], [place], [address] , [place] tel: [phone] [facility] CONSTIPATION NOSESOPHAGEAL REFLUXALLERGIC RHINITIS NOSIRRITABLE BOWEL SYNDROME 9200 6 Clifton Isaacs. [address], [facility] [address], [place], [place], [address]. tel:[phone] [facility], [address], [place], [place], [address] , [place] tel: [phone] [facility] No Information 7-200 6 [facility]. [address], [place], [address]. tel:[phone] [facility], [address], [place], [place], [address] , [place] tel: [phone] [facility] CERVICALGIA 3-200 5 Clifton Isaacs. [address], [facility] [address], [place], [place], [address]. tel:[phone] [facility], [address], [place], [place], [address] , [place] tel:[phone] [facility] IRON DEFIC ANEMIA NOSANEMIA NOS 0-200 4 Clifton Isaacs. [address], [facility] [address], [place], [place], [address]. tel:[phone] [facility], [address], [place], [address] , [place] tel: [phone] [facility] SPRAIN SUBSCAPULARIS 3200 3 Ravin Johanna. [address] [facility], [place], [place], [address]. tel: [phone] [facility], [address], [place], [place], [address] , [place] tel: [phone] [facility] ACUTE SINUSITIS NOS 0-200 3 Brunts Shital. [address], [address], [place], [place], [address]. tel: [phone] [facility], [address], [place], [place], [address] , [place] tel: [phone] [facility] JOINT PAIN-SHLDER 200 2 Clifton Shital. [address], [address], [place], [place], [address]. tel: [phone] [facility], [address], [place], [place], [address] , [place] tel: [phone] [facility] CRAMP IN LIMBACUTE PEPTIC ULCER NOS 2 Ravin Johanna. [address] [facility], [place], [place], [address]. tel: [phone] [facility] [address], [place], [place], [address] , [place] tel: [phone] [facility] ACUTE GASTRTIS W/O HMRHG 1200 2 Ravin Johanna. [address] [facility], [place], [place], [address]. tel: [phone] [facility], [address], [place], [place], [address] , [place] tel: [phone] [facility] LUMB/LUMBOSAC DISC DEGEN 9199 9 Clifton Shital. [address], [address], [place], [place], [address]. tel: [phone] Family History Family Member Type Diagnosis Age At Onset No Information Immunizations Vaccine Date Status Comments 40011 - Influenza administered Source: [place] ur[place] Unspecified 81403 - Pneumococcal_PPV23 administered S ource: Source Unspecified Payers Payer name Insurance type Covered alliance party ID Authoriza tion(s) No Information Social [...]
--- NOTE | ~2024-11-14 | CT_ITS ---
EXAMINATION: CT sinus wo con DATE: 11/14/2024 15:11 INDICATION: Chronic sinusitis TECHNIQUE: Computed tomography (CT) of the paranasal sinuses was performed without intravenous contrast. The dose-length product was 288.76 mGy-cm. Automated exposure control and iterative reconstruction technique were employed. COMPARISON: None FINDINGS: Small left mastoid effusion. Paranasal sinuses are unremarkable without significant mucosal thickening, mucoperiosteal reaction. There is right- sided alan bullosa. Leftward nasal septal deviation. No air-fluid levels. There is intracranial atherosclerosis. IMPRESSION: 1. No significant sinus disease. 2: Left mastoid effusion. Reviewed, dictated and finalized at location O.
--- OUTSIDE RECORDS SUMMARY | 2024-11-14 14:45 | XMS_ITS | Encounter Summary ---
Author Organization [facility] Address [address] [facility] [place] [address] Phone Care Team Providers Care Parking Assistant Name Role Phone Les Salinas DO Primary Care Provider Reason for Visit * Reason Comments Medication Refill Encounter Details Date Type Department Care Team (Late st Contact Info) Description 08/31/2020 Refill [facility] - Gastroenterology [facility] [address] [place] [address] Mesha Honeycutt Magalys, PAC [address] [place] [address] Medication Refill Social History Tobacco Use Types [...] on filedocumented in this encounter Care Teams Parking Assistant Relationship Specialty Start Date End Date Les Salinas DO [address] [facility] [place] [address] PCP - General Internal Medicine 01/03/18 documented as of this encounter
--- OUTSIDE RECORDS SUMMARY | 2024-11-14 14:45 | XMS_ITS | Clinical Summary ---
Author Organization [facility] Address [address] [place] [address] Phone Care Team Providers Care International Freight Forwarder Name Role Phone Unavailable Primary Care Provider [...] 1:00 PM CDT Height 162.6 cm (5' 4) 10/27/2022 1:00 PM CDT Body Mass Index 36.9 10/27/2022 1:00 PM CDT Plan of Treatment Health Maintenance Due Date Last Done Comments DTAP/TDAP/TD VACCINES (1 - Tdap) 1969 COLORECTAL SCREENING 1995 Colorectal Cancer Screening 1995 FIT-DNA Q 3 years 1995 FIT/FOBT Q 1 year 1995 Flex Sig/CT Colonography Q 5 years 1995 ZOSTER VACCINE (1 of 2) 01/17/2000 OSTEOPOROSIS SCREENING 2015 BREAST CANCER SCREENING 10/28/2023 10/27/2022 COVID-19 Vaccine (3 - 2023- season) 2023, 05/21/2020 INFLUENZA VACCINE (#1) 2024 04/11/2019, 2018 RSV VACCINE (60+ or ) (1 - [...] ULTRASOUND DATE: 10/27/2022 12:13 PM DICTATION LOCATION: [facility] HISTORY: Abnormal outside examination with [...] ULTRASOUND DATE: 10/27/2022 12:13 PM DICTATION LOCATION: [facility] HISTORY: Abnormal outside examination with [...] and/or scarring within the lateral right breast. us Columba Yadav MD MAMMO ORDERABLES Final Resul t from Last 3 Months or Most Recently Relevant to Health Maintenance Insurance [facility] DUAL COMPLETE PPO [facility] [id number]
--- OUTSIDE RECORDS SUMMARY | 2024-11-14 14:45 | XMS_ITS | Clinical Summary ---
Author Organization [facility] Address [address] [place] [address] Care Team Providers Care Sieve Maker Name Role Phone Unavailable Primary Care Provider [...]
--- OUTSIDE RECORDS SUMMARY | 2024-11-14 14:45 | XMS_ITS | Encounter Summary ---
Author Organization [facility] Address [address] [facility] [place] [address] Phone Care Team Providers Care Weight Analyst Name Role Phone Les Salinas DO Primary Care Provider Reason for Visit * Reason Comments Medication Refill Encounter Details Date Type Department Care Team (Late st Contact Info) Description 04/16/2020 Refill [facility] - Gastroenterology - [place] [address] [place] [address] Mesha Honeycutt Magalys, PAC [address] [place] [address] Medication Refill Social History Tobacco Use Types [...] Valdez Greene CMA - 04/16/2020 3:09 PM BELT CLEANER This was a duplicate and refill already sent in CLEANER documented in this encounter Plan of Treatment Not on file documented as of this encounter Visit Diagnoses Not on filedocumented in this encounter Care Teams Weight Analyst Relationship Specialty Start Date End Date Les Salinas DO [facility] [facility] [id number] PCP - General Internal Medicine 01/03/18 documented as of this encounter
--- OUTSIDE RECORDS SUMMARY | 2024-11-14 14:45 | XMS_ITS | Patient Health Record ---
Author Organization [facility] Address [address] [place] [address] Care Team Providers Care Overnight Cashier Name Role Phone Kosta Rod Unavailable [phone] KalpeshSussy amin Unavailable [phone] Sarah Beth Zambrano Unavailable [phone] Allergies Allergen (clinical drug ingredient) Drug/Non Drug Allergy documented on EMR Reaction Allergy Type Onset Date Status VERSED (uncoded) Unknown Allergy 05/29/2023 Ac tive Reason For Referral No Information Medications Medication SIG (Take, Route, Frequency, Duration) Notes Start Date End Date Status hydrOXYzine HCl 10 MG Tablet 1 tablet Oral three times a day; Duration: 90 days Active SUMAtriptan Succinate 100 MG Tablet 1 tablet as needed, may take second dose at least 2 hours after first dose up to 2 tablets per day as needed Oral Once a day As needed 05/29/2023 Active Atorvastatin Calcium 20 MG Tablet 1 tablet Oral Once a day 05/29/2023 Active Docusate Sodium 100 MG Capsule Oral 05/29/2023 Active Propranolol HCl 20 MG Tablet 1 tablet Oral three times a day; Duration: 90 days Active QUEtiapine Fumarate 200 MG Tablet 2 tablets Oral Once a day; Duration: 90 days bedtime Active DULoxetine HCl 60 MG Capsule Delayed Release Particles 1 capsule Oral Once a day; Duration: 90 days Active traZODone HCl 100 MG Tablet 2 tablet at bedtime Oral Once a day; Duration: 90 days Active Lisinopril 40 MG Tablet 1 tablet Oral Once a day 05/29/2023 Active traZODone HCl 100 MG Tablet 2 tablet at bedtime Oral Once a day; Duration: 30 days appointment needed Active Gabapentin 300 MG Capsule 2 capsule Oral three times a day 05/29/2023 Active QUEtiapine Fumarate 200 MG Tablet 2 tablets Oral Once a day; Duration: 90 days Active Alendronate Sodium 70 MG Tablet 1 tablet 30 minutes before the first food, beverage or medicine of the day with plain water Oral 05/29/2023 Active PreviDent 5000 Booster Plus 1.1 % [employer] 05/29/2023 Active Fluticasone Propionate Diskus 50 MCG/ACT Aerosol Powder Breath Activated Inhalation *Reorder from [employer] for eRx and Interaction Alerts* 05/29/2023 Active Omeprazole 40 MG Capsule Delayed Release 1 capsule 1/2 to 1 hour before morning meal Oral TWICE A DAY 05/29/2023 Active hydrOXYzine HCl 10 MG Tablet 1 tablet Oral three times a day; Duration: 30 days appointment needed Active Immunizations Vaccine Route Administration Date Status [...] History Observation Description Sex Assigned At Female Social History Household: Social Info Question Answer Notes Household Marital status: Number of adults in household: 2 Level of education: finished college retired Drug/Alcohol: Social Info Question Answer Notes Drugs Have you used drugs other than those for medical reasons in the past 12 months? No AUDIT-C (Standard) Did you have a drink containing alcohol in the past year? Yes How often did you have a drink containing alcohol in the past year? 2 to 3 times a week (3 points) How many drinks did you have on a typical day when you were drinking in the past year? 1 or 2 drinks (0 point) How often did you have six or more drinks on one occasion in the past year? 2 to 3 times per week (3 points) Points 6 Interpretation Positive Caffeine Intake: 1-2 cups per day Tobacco Use: Social Info Question Answer Notes Tobacco Control (Standard) Tobacco use: Nonsmoker Additional Details Category Social Info Options Details Migrated Social History Migrated Social History Alcohol Intake: Occasional 09/27/2022,Tobacco Years: Never smoker 06/05/2019 Drug/Alcohol: Do you smoke marijuana? Denies Do you drink alcohol? Yes, WINE MAYBE 1-2X A WEEK Section Notes: Tobacco use: Denies Living situation: Lives With Problems Problem Type SNOMED Code ICD Code Onset Dates Problem Status W/U Status Risk Notes Problem Obesity (378981679) Obesity, unspecified (E66.9) Active confirmed Problem Severe recurrent major depression without psychotic features (30008811) Major depressive disorder, recurrent severe without psychotic features (F33.2) Active confirmed Problem Generalized anxiety disorder (58754787) Generalized anxiety disorder (F41.1) 05/31/19 24 Active confirmed Problem Primary insomnia (6585904) Primary insomnia (F51.01) 09/28/19 23 Active confirmed Problem Migraine without aura, not refractory (disorder) (747008110) Migraine, unspecified, not intractable, without status migrainosus (G43.909) Active confirmed Problem Polyneuropathy (01719006) Polyneuropathy, unspecified (G62.9) Active confirmed Problem Essential hypertension (08360455) Essential (primary) hypertension (I10) Active confirmed Problem Gastro-esophageal reflux disease without esophagitis (727669859) Gastro-esophageal reflux disease without esophagitis (K21.9) Active confirmed Problem Age-related osteoporosis (073282459) Age-related osteoporosis without current pathological fracture (M81.0) Active confirmed Problem Screening for cardiovascular system disease (238160313) Encounter for screening for cardiovascular disorders (Z13.6) Active confirmed Problem Long-term current use of drug therapy (500173146) 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.899) 04/14/19 21 Active confirmed Problem Depression Screening (450494554) Encounter for screening for depression (Z13.31) Active confirmed Problem Mild recurrent major depression (93881767) MDD (major depressive disorder), recurrent episode, mild (F33.0) Active confirmed Vital Signs Heart Rate 70 /min 10/13/2024 Height-cm 162.56 cm 10/13/2024 Blood pressure diastolic 85 mm Hg 10/13/2024 Weight-kg 102.06 kg 10/13/2024 Height 64.00 in 10/13/2024 Blood pressure systolic 130 mm Hg 10/13/2024 Weight 225.0 lbs 10/13/2024 BMI 38.62 kg/m2 10/13/2024 Encounters Encounter Location Date Provider Diagnosis [facility] [employer] [place] [address] [facility] [address] [place] [address] 02/29/2024 Estephaniea Kalpesh Generalized anxiety disorder F41.1 ; Major depressive disorder, recurrent severe without psychotic features F33.2 and Primary insomnia F51.01 [facility] [employer] [place] [address] [facility] [address] [place] [address] 06/13/2024 Sarah Beth Zambrano Encounter for screen ing for depression Z13.31 ; Encounter for screening for cardiovascular disorders Z13.6 ; MDD (major depressive disorder), recurrent episode, mild F33.0 ; Generalized anxiety disorder F41.1 ; Primary insomnia F51.01 and Other local company intermodal truck driver (current) drug therapy Z79.899 [facility] [employer] [place] [address] [facility] [address] [place] [address] 10/13/2024 Kosta Rod MDD (major depressiv e disorder), recurrent episode, mild F33.0 ; Generalized anxiety disorder F41.1 ; Primary insomnia F51.01 ; Obesity, unspecified E66.9 ; Essential (primary) hypertension I10 ; Migraine, unspecified, not intractable, without status migrainosus G43.909 ; Age-related osteoporosis without current pathological fracture M81.0 ; Gastro-esophageal reflux disease without esophagitis K21.9 and Polyneuropathy, unspecified G62.9 [facility] [employer] [place] [address] [facility] [address] [place] [address] 12/14/2023 Thena Kalpesh [facility] [employer] [place] [address] [place] [address] 04/17/2024 Sussy Posey Major depressive disorder, recurrent severe without psychotic features F33.2 and Generalized anxiety disorder F41.1 [facility] [employer] [address] [facility] [address] [place] [address] 09/11/2024 Sarah Beth Zambrano Assessments Encounter Date [...] effects including loss of libido, increased suicidal thoughts/behavio rs in children and young adults, and serotonin [...] 02/29/2024 Generalized anxiety disorder (ICD-10 - F41.1) 10/13/2024 MDD (major depressive disorder), recurrent episode, mild (ICD-10 - F33.0) History of major depressive disorder, recurrent. Mood currently much improved. No recent major depressive episodes reported. Continues on duloxetine, quetiapine, trazodone, and hydroxyzine. - Refilled duloxetine. - Refilled hydroxyzine. - Continue quetiapine. - Continue trazodone. 02/29/2024 Primary insomnia (ICD-10 - F51.01) 06/13/2024 [...] effects including loss of libido, increased suicidal thoughts/behavio rs in children and young adults, and serotonin [...] potential neurotoxicity and interactions with prescribed medications. 10/13/2024 Generalized anxiety disorder (ICD-10 - F41.1) History of anxiety. Mood and sleep discussed. Continues on current psychiatric medications. - Continue current psychiatric medications. 10/13/2024 Primary insomnia (ICD-10 - F51.01) Reports difficulty falling asleep, sometimes taking 45 minutes. Occasionally tired the next day. No evidence of sleep apnea. - Continue current sleep regimen. 06/13/2024 MDD (major depressive disorder), recurrent episode, [...] effects including loss of libido, increased suicidal thoughts/behavio rs in children and young adults, and serotonin [...] potential neurotoxicity and interactions with prescribed medications. 10/13/2024 Obesity, unspecified (ICD-10 - E66.9) Patient is overweight and reports overeating. Expresses frustration about weight and high cost of weight loss medications. No current use of weight loss medications. 06/13/2024 Generalized anxiety disorder (ICD-10 - [...] effects including loss of libido, increased suicidal thoughts/behavio rs in children and young adults, and serotonin [...] effects including loss of libido, increased suicidal thoughts/behavio rs in children and young adults, and serotonin [...] potential neurotoxicity and interactions with prescribed medications. 10/13/2024 Essential (primary) hypertension (ICD-10 - I10) History of hypertension. Blood pressure reported as controlled. Takes lisinopril and propranolol daily. - Continue lisinopril. - Continue propranolol. 10/13/2024 Migraine, unspecified, not intractable, without status migrainosus (ICD-10 - G43.909) History of migraine headaches. Takes Imitrex as needed. - Continue Imitrex as needed. 06/13/2024 Other detention (current) drug therapy (ICD-10 [...] effects including loss of libido, increased suicidal thoughts/behavio rs in children and young adults, and serotonin [...] potential neurotoxicity and interactions with prescribed medications. 10/13/2024 Age-related osteoporosis without current pathological fracture (ICD-10 - M81.0) History of osteoporosis. Takes alendronate weekly. - Continue alendronate. 10/13/2024 Gastro-esophagea l reflux disease without esophagitis (ICD-10 - K21.9) History of GERD. Takes omeprazole. - Continue omeprazole. 10/13/2024 Polyneuropathy, unspecified (ICD-10 - G62.9) Reports neuropathy in feet and legs. Continues gabapentin despite limited benefit. Numbness and coldness persist. - Continue gabapentin. discuss with risk of Cogntive impairment with Gabapentin to discuss further with prescriber. offered SLUM test and cogntive testing, she refused 06/13/2024 Other Quetiapine material was published, Hydroxyzine material was published, Duloxetine material was published, Propranolol (Cardiovascular) material was published, Trazodone material was published, Heart-Healthy Diet: Care Instructions material was published, Diet and Exercise for Metabolic Syndrome: Care Instructions material was published, Learning About Low-Fat Eating material was published, Body Mass Index: Care Instructions material was published, Learning About Low-Carbohydrate Diets material was published, Learning About Low-Carbohydrate Foods material was published presently taking Vistaril [...] effects including loss of libido, increased suicidal thoughts/behavio rs in children and young adults, and serotonin [...] potential neurotoxicity and interactions with prescribed medications. 10/13/2024 Arnold Poon, a patient with a history of depression, neuropathy, and osteoporosis, presents for medication refills and follow-up, reporting improved mood but ongoing pain and numbness in feet and legs. Major Depressive Disorder Assessment: Patient reports improved mood with current medication regimen. Last major depressive episode occurred approximately 1.5 years ago. Sleep onset latency of up to 45 minutes noted, but sleep maintenance appears adequate. Patient reports occasional daytime fatigue. Appetite increased, leading to weight gain. Plan: - Continue Duloxetine 60 mg PO daily - Continue Quetiapine 200 mg PO two tablets at bedtime - Continue Trazodone 100 mg PO two tablets at bedtime - Follow up in 3 months (December) Generalized Anxiety Disorder Assessment: Patient currently managed on hydroxyzine for anxiety symptoms. No acute exacerbations reported. Plan: - Continue Hydroxyzine 10 mg PO TID Peripheral Neuropathy Assessment: Patient reports persistent pain and numbness in feet and legs, as well as cold sensation in feet. Currently managed with gabapentin. Recent study (September 2024) indicated a 30-40% increase in mild cognitive impairment risk in patients taking gabapentin. Plan: - Continue Gabapentin 2-3 times daily for neuropathy - Discuss potential cognitive risks associated with gabapentin use at next visit Fall Risk Assessment: Patient reports falling approximately twice per year, with the most recent fall occurring 6 months ago. Uses a cane for ambulation around the house. History of shoulder injury from previous fall, with subsequent clean-up surgery. Orthopedic surgeon advises against major shoulder reconstruction due to fall risk. Plan: - Continue use of assistive device (cane) for ambulation - Encourage home safety measures to reduce fall risk Hypertension Assessment: Blood pressure reported as controlled on current medication regimen. Plan: - Continue Lisinopril 40 mg PO daily - Continue Propranolol TID Migraine Assessment: Patient reports using Imitrex for migraine management. Frequency and severity of migraines not discussed. Plan: - Continue Sumatriptan as needed for migraine headaches Hyperlipidemia Assessment: Patient currently managed on atorvastatin for cholesterol control. Efficacy not discussed. Plan: - Continue Atorvastatin daily Osteoporosis Assessment: Patient currently managed on alendronate for osteoporosis. Efficacy and bone density status not discussed. Plan: - Continue Alendronate weekly Disclaimer: This note has been transcribed using speech recognition software and serves as a reflection of the patient's visit. While efforts have been made to ensure accuracy, there may be errors, including chemist helper inaccuracies and misspellings of medication names. This document should not be considered a verbatim record, and any discrepancies should be verified with the provider. Plan Of Treatment Next Appt Details Provider Name:Kosta Rod , 01/14/2025 02:30:00 PM, [address], [place], [address], Insurance Providers Payer Name Payer Address Payer Phone Subscriber Number Group Number Insured Name Patient Relationship to Insured Coverage Start Date Coverage End Date [facility] [address] [place] [address] [id number] POON LYNDSEY Self - patient is the insured Medical (General) History Medical History History ICD Code Problems: Essential hypertension Gastroesophageal reflux disease Generalized anxiety disorder Hyperlipidemia Long-term current use of drug therapy Obesity Primary insomnia Severe recurrent major depression withou t psychotic features , Major depressive disorder, recurrent Insomnia Hypertension Migraine Osteoporosis Peripheral neuropathy History of right shoulder fracture and s urgical repair Surgical History Surgery Date(Month/Year) Removal of gallbladder (43994) Tonsilectomy/adenoids 05/17/1954 Breast surgery (25698) 05/18/2007 Removal of gallbladder (41299) 4 Xcapsl ctrc rmvl cplx wo ecp (86299) Right shoulder 'clean up' rankin rgery, bone removal and other procedures, about a year ago History of right shoulder fracture, a co uple of years ago
--- OUTSIDE RECORDS SUMMARY | 2024-11-14 14:45 | XMS_ITS | Clinical Summary ---
Author Organization [address] Address [address] [place] [address] Care Team Providers Care Fire Prevention Bureau Captain Name Role Phone Les Salinas DO Primary Care Provider [phone]- [phone] Allergies Active Allergy Reactions Criticality Noted Date [...] 11/15/2020 Assessment & Plan (02/01/2021 2:52 PM COMMUNITY SERVICE REPRESENTATIVE): Patient continues at this time on propranolol [...] request for MRI brain report retrieval from [facility] where she allegedly had the MRI completed. I have also started her on propranolol 20 mg b.i.d. for migraine prophylaxis. She will follow-up in neurology clinic in 6 months for reassessment on propranolol. Breast mass 04/09/2020 Aftercare following right sh oulder joint replacement surgery 01/02/2018 Loosening of shoulder joint prosthesis 8 Overview (12/19/2017): Added automatically from request for surgery [id number] Arthritis of knee, right 11/22/2017 Overview (11/22/2017): Added automatically from request for surgery [id number] Closed fracture of right proximal humerus 2017 Overview (05/04/2017): Added automatically from request for surgery [id number] Morbid obesity with BMI of 40.0-44.9, adult 04/19 Abnormal mammogram 12/05/2016 Allergy, drug 04/28/2016 Peripheral neuropathy Assessment & Plan (02/01/2021 2:52 PM COMMUNITY SERVICE REPRESENTATIVE): Patient has history of peripheral neuropathy manifested [...] on file Legal Sex Female 11:43 PM COMMUNITY SERVICE REPRESENTATIVE Gender Identity Not on file Sexual Orientation [...] 5 season) 2023 06/11/2020, 05/21/2020 Influenza Vaccine (#1) 2024 04/11/2019, 2018 Pneumococcal vaccine 65+ Completed 04/11/2019, 07/2018 Medical Devices Implanted Type Area Preform Machine Operator Device Identifier Shelf Expiration Date Model / Serial / Lot Kit Screw Shoulder Reverse Torque Define - [id number] - [id number] Implanted:Qty: 1 on 05/07/2017 by Alex Redding MD at [facility] Other - see comments [employer] 11/13/2021 320-20-00 / [id number] / Screw Bone Equinoxe L34 Mm Od4.5 Mm Shoulder Kit Compression Lock Cap Reverse Red - [id number] - [id number] Implanted:Qty: 1 on 05/07/2017 by Alex Redding MD at [facility] Screw [employer] 09/07/2021 320-20-34 / [id number] / Screw 4.5mm 38mm Bone Cmpr Lkng Cap Kit Equinoxe Shldr Grn - [id number] - [id number] Implanted:Qty: 1 on 05/07/2017 by Alex Redding MD at [facility] Screw [employer] 12/27/2021 320-20-38 / [id number] / Cmpnt Glenoid 38mm +4mm Expand Glenosphere Lat Offset - [id number] - [id number] Implanted:Qty: 1 on 05/07/2017 by Alex Redding MD at [facility] [employer] 12/13/2021 320-02-38 / [id number] / Cmpnt Glenoid 38mm +4mm Expand Glenosphere Lat Offset - [id number] - [id number] Implanted:Qty: 1 on 05/07/2017 by Alex Redding MD at [facility] [employer] 04/12/2027 320-02-38 / [id number] / Plate Glenoid Equinoxe Standard Reverse - [id number] - [id number] Implanted:Qty: 1 on 05/07/2017 by Alex Redding MD at [facility] [employer] 03/27/2027 320-15-01 / [id number] / Tray Humeral Adapter Equinoxe +0 Mm Reverse Shoulder System - [id number] - [id number] Implanted:Qty: 1 on 05/07/2017 by Alex Redding MD at [facility] [employer] 03/26/2027 320-10-00 / [id number] / [employer] 320-38-10 Equinoxe 38mm Reverse Constrained Shoulder +0mm Liner Humeral - [id number] Implanted:Qty: 1 on 01/01/2018 by Alex Redding MD at [facility] Right: Shoulder [employer] 04/18/2022 320-38-10 / / [id number] [employer] [id number] Palacos Lv+G Cement 40gm Bone Gentamicin Green - [id number] Implanted:Qty: 1 on 01/01/2018 by Alex Redding MD at [facility] [employer] [id number] / / [employer] [id number] Palacos Lv+G Cement 40gm Bone Gentamicin Green - [id number] Implanted:Qty: 1 on 01/01/2018 by Alex Redding MD at [facility] Right: Shoulder [employer] 10/16/2020 [id number] / / [id number] [employer] 320-20-00 Reverse Torque Define Shoulder Kit Screw - [id number] Implanted:Qty: 1 on 01/01/2018 by Alex Redding MD at [facility] Right: Shoulder [employer] 11/25/2022 320-20-00 / / [id number] [employer] 320-10-00 Equinoxe Reverse Shoulder +0mm Tray Humeral Adapter - [id number] Implanted:Qty: 1 on 01/01/2018 by Alex Redding MD at [facility] Right: Shoulder [employer] 11/12/2027 320-10-00 / / [id number] [employer] 300-01-09 Equinoxe 9mm Press Fit Primary Shoulder Stem Humeral - [id number] Implanted:Qty: 1 on 01/01/2018 by Alex Redding MD at [facility] Right: Shoulder [employer] 08/21/2027 300-01-09 / / [id number] Explanted Type Area Preform Machine Operator Device Identifier Shelf Expiration Date Model / Serial / Lot Stem Humeral Equinoxe Od9 Mm Shoulder Press Fit Primary - [id number] - [id number] Implanted:Qty: 1 on 05/07/2017 by Alex Redding MD at [facility] Explanted:Qty: 1 on 01/01/2018 at [facility] Other - see comments [employer] 10/04/2026 300-01-09 / [id number] / Description:EXPLANT DISPOSED OF Liner Humeral Equinoxe +0 Mm Od38 Mm Shoulder Reverse Constrained - [id number] - [id number] Implanted:Qty: 1 on 05/07/2017 by Alex Redding MD at [facility] Explanted:Qty: 1 on 01/01/2018 at [facility] 09/27/2021 320-38-10 / [id number] / Description:EXPLANT DISPOSED OF Procedures Procedure Name Priority Date/Time Associated Diagnosis Comments DIAGNOSTIC MAMMOGRAM BILATERAL W JEFFREY Schedule Routine, Read Routine (OP Routine) 04/09/2020 1:49 PM COMMUNITY SERVICE REPRESENTATIVE Disorder of breast, unspecified Breast lump in female from Last 3 Months or Most Recently Relevant to Health Maintenance Results * Diagnostic Mammogram Bilateral W Jeffrey (04/09/2020 1:49 PM COMMUNITY SERVICE REPRESENTATIVE) Anatomical Region Laterality Modality Breast Bilateral Mammography 04/09/2020 2:31 PM COMMUNITY SERVICE REPRESENTATIVE Impressions 04/09/2020 3:59 PM COMMUNITY SERVICE REPRESENTATIVE 1. Correlating with the area of palpable [...] Kathy Baldwin M.D. Narrative 04/09/2020 3:59 PM COMMUNITY SERVICE REPRESENTATIVE EXAMINATION: BILATERAL DIGITAL DIAGNOSTIC MAMMOGRAM INCLUDING CAD [...] Most Recently Relevant to Health Maintenance Insurance [facility] MDCR HMO REF UHC MEDICARE ADVANTAGE [place] [id number] UHC MEDICARE ADVANTAGE Advance Directives For more information, please contact: [phone] * Full Code (Latest Code Status on File) Date Activated Date Inactivated Comments 01/01/2018 8:13 PM 01/02/2018 4:12 PM * Full Code Date Activated Date Inactivated Comments 05/07/2017 6:02 PM 05/08/2017 9:01 PM Care Teams Fire Prevention Bureau Captain Relationship Specialty Start Date End Date Les Salinas DO PCP - General Internal Medicine 05/22/17
--- OUTSIDE RECORDS SUMMARY | 2024-11-14 14:45 | XMS_ITS | Clinical Summary ---
Author Organization [facility] Address [address] [facility], [address] [address] Phone Care Team Providers Care Stockroom Worker Name Role Phone Rita Les Ivan SCHULTZ Primary Care Provider Allergies Active Allergy Reactions Criticality Noted Date Comments Midazolam Swelling 01/04/2018 Versed Medications ALPRAZolam (XANAX) 1 MG Tablet Take 1 mg by mouth. 2 tabs AM, 1/2 tab at noon and 1 tab PM Active POTASSIUM CHLORIDE PO Take 10 mEq by mouth daily. Active Cholecalciferol (VITAMIN D3) 1.25 MG (96773 UT) Capsule 0 Active alendronate (FOSAMAX) 70 [...] 2:08 PM 08/29/2021 12:50 PM Care Teams Stockroom Worker Relationship Specialty Start Date End Date Les Salinas DO [address] [place] [address] PCP - General Internal Medicine 01/03/18
== END 2024-11-14 14:42 | disposition home or self-care (01) ==
PROVIDERS: PCP Internal Medicine; Visit Provider Otolaryngology Otolaryngology/Facial Plastic Surgery
DX: H74.8X2 Other specified disorders of left middle ear and mastoid (principal); J32.9 Chronic sinusitis, unspecified
CPT/HCPCS: 70486

== ENCOUNTER 2024-12-08 14:38 | Outpatient (CLI) | payer MEDICARE, SELFPAY ==
--- OUTSIDE RECORDS SUMMARY | 2009-04-07 05:30 | XMS_ITS | Continuity of Care Document ---
Author Organization [facility] [place] Address [address] [place] [address] Phone Care Team Providers Care Qualifications Examiner Name Role Phone Mayur Pradip Unavailable Unavailable Procedures Procedure Date Eye Exam & Treatment Refraction Office/outpatient Visit, Est Eye Exam, New Patient Refraction Advance Directives Directive Yes / No Effective Date File Name No Information Encounters Encounter Description Practice Location Reason(s) For Visit Diagnoses Date Provider Providers Copied on Encounter [facility], [address] [place] [address] [address], [place], [place], [id number], [place] tel:[phone] [facility] No Information 0-201 0 Krishnasamy Pradip. [address], [facility], [place]. tel:[phone] Office/outpat ient Visit, Est [facility], [address], [place], [place], [id number], [place] tel:[phone] [facility] No Information 2-200 9 Krishnasamy Pradip. 2421 [facility] [address], [place], [address], [place]. tel:[phone] [facility], [address], [place], [place], [id number], [place] tel:[phone] [facility] No Information 0-200 8 Mayur Moseley. [address], [address], [place]. tel:[phone] Family History Family Member Type Diagnosis Age At Onset No Information Payers Payer name Insurance type Covered constitution party ID Authoriza tion(s) No Information Social History Type Description Quantity Date Captured Comments Sex Female Smoking Status No Information Chief Complaint And Reason For Visit No Information Reason For Referral Reason For Referral No Information History Of Present Illness Encounter Date Complaint History Of Prese nt Illness No Information Functional Status Date Functional Assessmen t No Information Instructions Date Instruction Additional Infor mation No Information Assessments Type Assessment Date No Information Patient Care Teams Name Effective Dates (start - stop) Status Members No Information
--- OUTSIDE RECORDS SUMMARY | 2021-02-14 10:41 | XMS_ITS | Continuity of Care Document ---
Author Organization [facility] Address [address] [place] [address] Phone Care Team Providers Care Hull Drafter Name Role Phone Shital Lazo MD Unavailable Unavailable Allergies, Adverse Reactions, Alerts Substance Reaction Status Criticality No Known Drug Allergies Other Active No I nformation Medications Medication Instructions Dosage Effective Dates (start - stop) Status Comments NEXIUM 40 MG CAPSULE 1 QD-daily - Acti ve XOPENEX HFA 45 MCG INHALER 2 QID - Active AEROCHAMBER 1 DIRECTE - Active MUCINEX DM ER 1,200-60 MG TAB 1 BID - Active FLUTICASONE PROP 50 MCG SPRAY 2 QD-daily - Active MAXALT 10 MG TABLET 1 DIRECTE - Act eduardo CYMBALTA 60MG CAPS 1 QD-daily - Active MUCINEX D 600MG-60MG TABS 1 BID - Active OTC Advance Directives Directive Yes / No Effective Date File Name No Information Encounters Encounter Description Practice Location Reason(s) For Visit Diagnoses Date Provider Providers Copied on Encounter [facility], [address], [place], [place], [address] , [place] tel: [phone] [facility] No Information 1 Clifton Isaacs. [address], [address], [place], [place], [address]. tel:[phone] [facility], [address], [place], [place], [address] , [place] tel: [phone] Conversion Department No Information 1 Conversion Doctor. [address] [facility], [place], [address], [place]. [facility], [address], [place], [place], [address] , tel: [phone] [facility] ACUTE URI NOSSCREEN-DIABETE S MELLITUSDEPRESSIV E DISORDER NEC 0 Brunlouis Isaacs. [address], [address], [place], [place], [address]. tel: [phone] [facility], [address], [place], [place], [address] , [place] tel: [phone] [facility] MGRN WO AURA WO NTRC MGRCA IN SITU BREAST 9 Ravin Johanna. [address] [facility], [place], [place], [address]. tel: [phone] [facility], [address], [place], [place], [address] , [place] tel: [phone] [facility] VACCIN FOR INFLUENZAND VAC STRPTCS PNEUMNI BNEUROPATHY DUE TO DRUGS 9 Clifton Isaacs. [address], [facility] [address], [place], [place], [address]. tel:[phone] [facility], [address], [place], [place], [address] , [place] tel: [phone] [facility] MALAISE AND FATIGUE NEC 9 Clifton Isaacs. [address], [facility] [address], [place], [place], [address]. tel: [phone] [facility], [address], [place], [place], [address] , [place] tel: [phone] [facility] SCREEN LIPOID DISORDERS 9 Clifton Isaacs. [address], [facility] [address], [place], [place], [address]. tel:[phone] [facility], [address], [place], [place], [address] , [place] tel: [phone] [facility] JOINT PAIN-UNSPEC 2-200 7 Clifton Isaacs. [address], [facility] [address], [place], [place], [address]. tel:[phone] [facility], [address], [place], [place], [address] , [place] tel: [phone] [facility] MGRN W AURA WO NTRC MGRN 2-200 7 [facility]. [address] [facility], [place], [place], [address]. tel:[phone] [facility], [address], [place], [place], [address] , [place] tel: [phone] [facility] CONSTIPATION NOSESOPHAGEAL REFLUXALLERGIC RHINITIS NOSIRRITABLE BOWEL SYNDROME 9200 6 Clifton Isaacs. [address], [facility] [address], [place], [place], [address]. tel:[phone] [facility], [address], [place], [place], [address] , [place] tel: [phone] [facility] No Information 7-200 6 [facility]. [address], [place], [address]. tel:[phone] [facility], [address], [place], [place], [address] , [place] tel: [phone] [facility] CERVICALGIA 3-200 5 Clifton Isaacs. [address], [facility] [address], [place], [place], [address]. tel:[phone] [facility], [address], [place], [place], [address] , [place] tel:[phone] [facility] IRON DEFIC ANEMIA NOSANEMIA NOS 0-200 4 Clifton Isaacs. [address], [facility] [address], [place], [place], [address]. tel:[phone] [facility], [address], [place], [place], [address] , [place] tel: [phone] [facility] SPRAIN SUBSCAPULARIS 3200 3 Ravin Johanna. [address] [facility], [place], [place], [address]. tel: [phone] [facility], [address], [place], [place], [address] , [place] tel: [phone] [facility] ACUTE SINUSITIS NOS 0-200 3 Brunts Shital. [address], [address], [place], [place], [address]. tel: [phone] [facility], [address], [place], [place], [address] , [place] tel: [phone] [facility] JOINT PAIN-SHLDER 200 2 Clifton Shital. [address], [address], [place], [place], [address]. tel: [phone] [facility], [address], [place], [place], [address] , [place] tel: [phone] [facility] CRAMP IN LIMBACUTE PEPTIC ULCER NOS 2 Ravin Johanna. [address] [facility], [place], [place], [address]. tel: [phone] [facility] [address], [place], [place], [address] , [place] tel: [phone] [facility] ACUTE GASTRTIS W/O HMRHG 1200 2 Ravin Johanna. [address] [facility], [place], [place], [address]. tel: [phone] [facility], [address], [place], [place], [address] , [place] tel: [phone] [facility] LUMB/LUMBOSAC DISC DEGEN 9199 9 Clifton Shital. [address], [address], [place], [place], [address]. tel: [phone] Family History Family Member Type Diagnosis Age At Onset No Information Immunizations Vaccine Date Status Comments 63044 - Influenza administered Source: So urce Unspecified 13566 - Pneumococcal_PPV23 administered S ource: Source Unspecified Payers Payer name Insurance type Covered libertarian ID Authoriza tion(s) No Information Social History Type Description Quantity Date Captured Comments Alcohol Use Details Unknown Caffeine Use Details Unknown Tobacco Use Status No Information Smoking Status No Information Sex Female Chief Complaint And Reason For Visit No [...]
--- OUTSIDE RECORDS SUMMARY | 2024-12-08 14:53 | XMS_ITS | Clinical Summary ---
Author Organization [facility] Address [address] [place] [address] Care Team Providers Care Hydroelectric Station Chief Name Role Phone Unavailable Primary Care Provider [...] 01/17/2000 Dexa Scan (General) 2015 COVID-19 Vaccine ( - 2023-2 5 season) 2024 RSV Immunization or 60+ Years (1 - [...]
--- OUTSIDE RECORDS SUMMARY | 2024-12-08 14:53 | XMS_ITS | Clinical Summary ---
Author Organization [facility] Address [address] [facility], [address] [address] Phone Care Team Providers Care Anesthesiology Teacher Name Role Phone Rita Les Ivan SCHULTZ Primary Care Provider Allergies Active Allergy Reactions Criticality Noted Date Comments Midazolam Swelling 01/04/2018 Versed Medications ALPRAZolam (XANAX) 1 MG Tablet Take 1 mg by mouth. 2 tabs AM, 1/2 tab at noon and 1 tab PM Active POTASSIUM CHLORIDE PO Take 10 mEq by mouth daily. Active Cholecalciferol (VITAMIN D3) 1.25 MG (56372 UT) Capsule 0 Active alendronate (FOSAMAX) 70 [...] 1995 Zoster Immunization (1 of 2) 01/17/2000 Influenza Immunization (#1) 2024 04/11/2019, 1 03/24/2018 SARS-COV-2 Immunization ( season) 2024 07/19/2021, 12/19/2020, 06/11/2020, Additional history exists Respiratory [...] 2:08 PM 08/29/2021 12:50 PM Care Teams Anesthesiology Teacher Relationship Specialty Start Date End Date Les Salinas DO [address] [facility] [place] [address] PCP - General Internal Medicine 01/03/18
--- OUTSIDE RECORDS SUMMARY | 2024-12-08 14:53 | XMS_ITS | Encounter Summary ---
Author Organization [facility] Address [address] [facility] [place] [address] Phone Care Team Providers Care Retail Business Analyst Name Role Phone Les Salinas DO Primary Care Provider Reason for Visit * Reason Comments Medication Refill Encounter Details Date Type Department Care Team (Late st Contact Info) Description 08/31/2020 Refill [facility] - Gastroenterology [facility] [address] [place] [address] eMsha Honeycutt Magalys, PAC [address] [place] [address] Medication Refill Social History Tobacco Use Types [...] on filedocumented in this encounter Care Teams Retail Business Analyst Relationship Specialty Start Date End Date Les Salinas DO [address] [facility] [place] [address] PCP - General Internal Medicine 01/03/18 documented as of this encounter
--- OUTSIDE RECORDS SUMMARY | 2024-12-08 14:53 | XMS_ITS | Clinical Summary ---
Author Organization [facility] Address [address] [place] [address] Phone Care Team Providers Care Delinquency Prevention Officer Name Role Phone Unavailable Primary Care Provider [...] SCREENING 2015 BREAST CANCER SCREENING 10/28/2023 10/27/2022 INFLUENZA VACCINE (#1) 2024 04/11/2019, 2018 COVID-19 Vaccine (3 - season) 2024, 05/21/2020 RSV VACCINE (60+ or ) (1 [...] ULTRASOUND DATE: 10/27/2022 12:13 PM DICTATION LOCATION: [facility] HISTORY: Abnormal outside examination with biopsy recommendation. [...] ULTRASOUND DATE: 10/27/2022 12:13 PM DICTATION LOCATION: [facility] HISTORY: Abnormal outside examination with biopsy recommendation. [...] Most Recently Relevant to Health Maintenance Insurance [facility] DUAL COMPLETE PPO [facility] [id number]
--- OUTSIDE RECORDS SUMMARY | 2024-12-08 14:53 | XMS_ITS | Encounter Summary ---
Author Organization [facility] Address [address] [facility] [place] [address] Phone Care Team Providers Care Flap Presser Name Role Phone Les Salinas DO Primary Care Provider Reason for Visit * Reason Comments Medication Refill Encounter Details Date Type Department Care Team (Late st Contact Info) Description 04/16/2020 Refill [facility] - Gastroenterology - [place] [address] [place] [address] Mesha Honeycutt Magalys, PAC [address] [place] [address] Medication Refill Social History Tobacco Use Types [...] Valdez Greene CMA - 04/16/2020 3:09 PM TOY MAKER This was a duplicate and refill already sent in MAKER documented in this encounter Plan of Treatment Not on file documented as of this encounter Visit Diagnoses Not on filedocumented in this encounter Care Teams Flap Presser Relationship Specialty Start Date End Date Les Salinas DO [facility] [facility] [address] [facility] [place] [id number] PCP - General Internal Medicine 01/03/18 documented as of this encounter
[2024-12-11 22:08] LABS: Pneumo Ab Type 17 (17F)* 3.9 ug/mL (>1.3); Pneumo Ab Type 2* 2.3 ug/mL (>1.3); Pneumo Ab Type 20* 1.2 ug/mL (>1.3); Pneumo Ab Type 22 (22F)* 0.3 ug/mL (>1.3); Pneumo Ab Type 34 (10A)* 0.3 ug/mL (>1.3); Pneumo Ab Type 43 (11A)* 0.6 ug/mL (>1.3); Pneumo Ab Type 5* 9.3 ug/mL (>1.3); Pneumo Ab Type 54 (15B)* 2.5 ug/mL (>1.3); Pneumo Ab Type 70 (33F)* 1.5 ug/mL (>1.3)
== END 2024-12-08 14:39 | disposition home or self-care (01) ==
LOC: ANHGOSHLAB 14:39
PROVIDERS: PCP Nurse Practitioner; Visit Provider Otolaryngology Otolaryngology/Facial Plastic Surgery
DX: J32.9 Chronic sinusitis, unspecified (principal)
CPT/HCPCS: 86581

== ENCOUNTER 2025-02-25 12:41 | Outpatient (CLI) | payer MEDICARE, SELFPAY ==
--- OUTSIDE RECORDS SUMMARY | 2025-01-14 08:30 | XMS_ITS ---
Author Organization [facility] Address [address] [place] [address] [address] [facility] [address] [place] [address] Care Team Providers Care Perioperative Tech Name Role Phone Marbella Arredondo Unavailable [phone] Marbella Feliz Unavailable [phone] REASON FOR VISIT 3 month f/u Social History Sex Assigned At : Social History Observation Description Sex Assigned At Female Encounters Encounter Location Date Provider Diagnosis [facility] [employer] [place] [id number] [facility] [address] [facility] [address] [place] [address] 01/14/2025 Marbella Feliz Plan Of Treatment Next Appt Details Provider Name:Marbella Arredondo, 05/07/2025 03:30:00 PM, [facility], [facility] [address], [place], [address], Progress Notes * LYNDSEY SHEA LDOB: 0 (75 yo F)Acc No.[id number]:01/14/2025 Patient: LYNDSEY CHAIREZ Provider: Liliam Feliz :1950 A ge:74 Y S ex:Female Date:01/14/2025 Address:[address], [id number] Subjective: * Chief Complaints: * 3 month f/u * Electronic signature of ZAIDA JohnsHNP on 02/25/2025 at 04:47 PM DRAPERY COUNSELOR Sign off status: Pending * Provider: Liliam Feliz Date: Generated for Shiva awad/Eros/eTransmitting on: 1 04/28/2024 04:47 PM DRAPERY COUNSELOR
--- OUTSIDE RECORDS SUMMARY | 2025-02-25 16:42 | XMS_ITS | Patient Health Record ---
Author Organization [facility] TMS Address [address] [place] [address] Care Team Providers Care Malt Loader Name Role Phone Marbella Arredondo Unavailable [phone] Kosta Rod Unavailable [phone] Sussy Posey Unavailable [phone] Sarah Beth Zambrano Unavailable [phone] Marbella Feliz Unavailable [phone] Allergies Allergen (clinical drug ingredient) Drug/Non Drug Allergy documented on EMR Reaction Allergy Type Onset Date Status VERSED (uncoded) Unknown Allergy 05/29/2023 Ac tive Reason For Referral Reason Major depressive dis order, recurrent severe without psychotic features Diagnosis 1 Major depressive dis order, recurrent severe without psychotic features (F33.2) Referral Organization [facility] Referring Provider First Name Marbella Referring Provider Last Name Arnulfo Referring Provider Speciality Nurse Prac titioner Referred Provider Specialty Mental healt h counseling General Notes Melissa Blankenship 01/19 02:08:25 PM AIRFRAME TECHNICIAN >I spoke with patient and she wants to make sure out therapist are in network before scheduling, she stated the [facility] was out of network in the past Referral Priority Routine Medications Medication SIG (Take, Route, Frequency, Duration) Notes Start Date End Date Status Gabapentin 300 MG Capsule 2 capsule Oral three times a day 05/29/2023 Active QUEtiapine Fumarate 200 MG Tablet 2 tablets Oral Once a day; Duration: 30 days bedtime Active Propranolol HCl 20 MG Tablet 1 [...] tablet Oral Once a day 05/29/2023 Active DULoxetine HCl 60 MG Capsule Delayed Release Particles TAKE 1 CAPSULE BY MOUTH DAILY Oral Once a day; Duration: 90 days Active Docusate Sodium 100 MG Capsule Oral 05/29/2023 Active hydrOXYzine HCl 10 MG Tablet TAKE 1 TABLET BY MOUTH THREE TIMES DAILY Oral three times a day; Duration: 90 days Active Alendronate Sodium 70 MG Tablet 1 tablet 30 minutes before the first food, beverage or medicine of the day with plain water Oral 05/29/2023 Active QUEtiapine Fumarate 200 MG Tablet 2 tablets Oral Once a day; Duration: 90 days Active traZODone HCl 100 MG Tablet 2 tablet at bedtime Oral Once a day; Duration: 90 days Active PreviDent 5000 Booster Plus 1.1 % [employer] 05/29/2023 Active Fluticasone Propionate Diskus 50 MCG/ACT Aerosol Powder Breath Activated Inhalation *Reorder from I and love and you for eRx and Interaction Alerts* 05/29/2023 Active Omeprazole 40 MG Capsule Delayed Release 1 capsule 1/2 to 1 hour before morning meal Oral TWICE A DAY 05/29/2023 Active Lisinopril 40 MG Tablet 1 tablet Oral Once a day 05/29/2023 Active Immunizations Vaccine Route Administration Date [...] Tobacco use: Denies Living situation: Lives With Social connections: Maintains friendships, attends group lunches, talks to friends on the phone Family interaction: Limited contact with brother in [place], less frequent since mother's passing Tobacco use: Denies Living situation: Lives With Problems Problem Type SNOMED Code ICD Code Onset Dates Problem Status W/U Status Risk Notes Problem Obesity (501565796) Obesity, unspecified (E66.9) Active confirmed Problem Severe recurrent major depression without psychotic features (88172091) Major depressive disorder, recurrent severe without psychotic features (F33.2) Active confirmed Problem Generalized anxiety disorder (44426128) Generalized anxiety disorder (F41.1) 05/31/19 24 Active confirmed Problem Primary insomnia (8971844) Primary insomnia (F51.01) 09/28/19 23 Active confirmed Problem Migraine without aura, not refractory (disorder) (674276432) Migraine, unspecified, not intractable, without status migrainosus (G43.909) Active confirmed Problem Polyneuropathy (65186733) Polyneuropathy, unspecified (G62.9) Active confirmed Problem Essential hypertension (29836571) Essential (primary) hypertension (I10) Active confirmed Problem Gastro-esophageal reflux disease without esophagitis (590359122) Gastro-esophageal reflux disease without esophagitis (K21.9) Active confirmed Problem Age-related osteoporosis (654906794) Age-related osteoporosis without current pathological fracture (M81.0) Active confirmed Problem Screening for cardiovascular system disease (378126721) Encounter for screening for cardiovascular disorders (Z13.6) Active confirmed Problem Long-term current use of drug therapy (612923916) Other director long term care (current) drug therapy (Z79.899) 04/14/19 21 Active confirmed Problem Depression Screening (064321291) Encounter for screening for depression (Z13.31) Active confirmed Problem Mild recurrent major depression (35636918) MDD (major depressive disorder), recurrent episode, mild (F33.0) Active confirmed Vital Signs Heart Rate 81 /min 02/05/2025 Height-cm 162.56 cm 02/05/2025 Blood pressure diastolic 81 mm Hg 02/05/2025 Weight-kg 104.33 kg 02/05/2025 Height 64.00 in 02/05/2025 Blood pressure systolic 123 mm Hg 02/05/2025 Weight 230 lbs 02/05/2025 BMI 39.48 kg/m2 02/05/2025 Encounters Encounter Location Date Provider Diagnosis [facility] [address] [facility] [address] [address] 02/29/2024 Thena Kalpesh Generalized anxiety disorder F41.1 ; Major depressive disorder, recurrent severe without psychotic features F33.2 and Primary insomnia F51.01 [employer] [facility] [address] [facility] [address] [facility] [address] [place] [address] 06/13/2024 Sarah Beth Zambrano Encounter for screen ing for depression Z13.31 ; Encounter for screening for cardiovascular disorders Z13.6 ; MDD (major depressive disorder), recurrent episode, mild F33.0 ; Generalized anxiety disorder F41.1 ; Primary insomnia F51.01 and Other correction (current) drug therapy Z79.899 [facility] [employer] [facility] [address] [facility] [address] [facility] [address] [place] [address] 10/13/2024 Kosta Rod MDD (major depressiv e disorder), recurrent episode, mild F33.0 ; Generalized anxiety disorder F41.1 ; Primary insomnia F51.01 ; Obesity, unspecified E66.9 ; Essential (primary) hypertension I10 ; Migraine, unspecified, not intractable, without status migrainosus G43.909 ; Age-related osteoporosis without current pathological fracture M81.0 ; Gastro-esophageal reflux disease without esophagitis K21.9 and Polyneuropathy, unspecified G62.9 [facility] [employer] [facility] [address] [facility] [address] [place] [address] 01/08/2025 Marbella [place] Major depressive disorder, recurrent severe without psychotic features F33.2 ; Generalized anxiety disorder F41.1 ; Primary insomnia F51.01 and Polyneuropathy, unspecified G62.9 [facility] [employer] [facility] [address] [facility] [address] [place] [address] 02/05/2025 Marbella Arnulfo Major depressive disorder, recurrent severe without psychotic features F33.2 ; Generalized anxiety disorder F41.1 and Primary insomnia F51.01 [facility] [employer] [facility] [address] [address] 04/17/2024 Thena Kalpesh Major depressive disorder, recurrent severe without psychotic features F33.2 and Generalized anxiety disorder F41.1 [facility] [employer] [facility] [address] [facility] [address] [place] [address] 09/11/2024 Sarah Beth Zambrano [facility] [employer] [facility] [address] [facility] [address] [place] [address] 01/05/2025 Kosta Rod Primary insomnia F51 .01 and MDD (major depressive disorder), recurrent episode, mild F33.0 Assessments Encounter Date Diagnosis (ICD Code) Assessment [...] neurotoxicity and interactions with prescribed medications. 10/13/2024 MDD (major depressive disorder), recurrent episode, mild (ICD-10 - F33.0) History of major depressive disorder, recurrent. Mood currently much improved. No recent major depressive episodes reported. Continues on duloxetine, quetiapine, trazodone, and hydroxyzine. - Refilled duloxetine. - Refilled hydroxyzine. - Continue quetiapine. - Continue trazodone. 01/05/2025 Primary insomnia (ICD-10 - F51.01) 01/08/2025 Major depressive disorder, recurrent severe without psychotic features (ICD-10 - F33.2) Depressive symptoms with mood described as up and down. Frustration with lack of support from and weight gain. Continues duloxetine, trazodone, and quetiapine for depression. Denied thoughts of self-harm or harm to others. - Refill duloxetine as requested. - Continue trazodone and quetiapine at bedtime. 01/08/2025 Generalized anxiety disorder (ICD-10 - F41.1) Anxiety managed with hydroxyzine after discontinuation of Xanax. Initially skeptical about hydroxyzine, now reports benefit. - Continue hydroxyzine 10 mg, 1 tablet three times a day as needed. 02/05/2025 Major depressive disorder, recurrent severe without psychotic features (ICD-10 - F33.2) Mood has been stable over the past month. Patient remains engaged in activities such as reading, watching TV, and socializing. No worsening of depressive symptoms reported. 02/29/2024 Major depressive disorder, recurrent severe without psychotic features (ICD-10 - F33.2) 02/29/2024 Generalized anxiety disorder (ICD-10 - F41.1) 02/29/2024 Primary insomnia (ICD-10 - F51.01) 02/05/2025 Generalized anxiety disorder (ICD-10 - F41.1) Patient experiences occasional anxiety. Manages anxiety by taking extra hydroxyzine as needed. Xanax was previously discontinued. - Continue hydroxyzine as needed for anxiety. 01/08/2025 Primary insomnia (ICD-10 - F51.01) Difficulty getting to sleep despite taking trazodone and quetiapine at bedtime. - Continue trazodone and quetiapine at bedtime. 01/05/2025 MDD (major depressive disorder), recurrent episode, mild (ICD-10 - F33.0) 10/13/2024 Generalized anxiety disorder (ICD-10 - F41.1) History of anxiety. Mood and sleep discussed. Continues on current psychiatric medications. - Continue current psychiatric medications. 06/13/2024 Encounter for screening for cardiovascular [...] neurotoxicity and interactions with prescribed medications. 10/13/2024 Primary insomnia (ICD-10 - F51.01) Reports difficulty falling asleep, sometimes taking 45 minutes. Occasionally tired the next day. No evidence of sleep apnea. - Continue current sleep regimen. 01/08/2025 Polyneuropathy, unspecified (ICD-10 - G62.9) 02/05/2025 Primary insomnia (ICD-10 - F51.01) Patient reports intermittent difficulty falling asleep. Quetiapine and use of sound machine or soft music help with sleep. - Continue quetiapine for sleep as previously prescribed. 10/13/2024 Obesity, unspecified (ICD-10 - E66.9) Patient [...] - Continue Imitrex as needed. 06/13/2024 Other director long term care (current) drug therapy (ICD-10 - Z79.899) Medication [...] ensure accuracy, there may be errors, including manager assessment inaccuracies and misspellings of medication names. This document should not be considered a verbatim record, and any discrepancies should be verified with the provider. 01/08/2025 Other Gait, Strength, and Balance Training ExercisesThis handout provides simple exercises to improve your gait, strength, and balance. Theseexercises can help prevent falls, improve mobility, and enhance overall function. Perform them in asafe space, use support if needed, and stop if you feel pain or dizziness.1. Gait Training Exercises- Walk in a straight line for 10-20 feet, heel-to-toe.- Step over small objects (cones or rolled towels).- Practice walking sideways and backwards.- Use a treadmill if available, under supervision.2. Balance Exercises- Stand on one foot for 10-30 seconds; switch legs.- Walk heel-to-toe in a straight line.- Use a balance board or cushion to challenge stability.- Practice rising from a chair without using your hands.3. Strength Training Exercises- [id number]: rise from a chair repeatedly.- Wall push-ups: stand at arm's length from a wall and push.- Step-ups on a low step or stairs.- Leg lifts while seated or lying down.Consult your primary care provider (PCP) before starting these exercises, especially if you havemedical conditions or difficulty performing them 02/05/2025 Other Gait, Strength, and Balance Training ExercisesThis handout provides simple exercises to improve your gait, strength, and balance. Theseexercises can help prevent falls, improve mobility, and enhance overall function. Perform them in asafe space, use support if needed, and stop if you feel pain or dizziness.1. Gait Training Exercises- Walk in a straight line for 10-20 feet, heel-to-toe.- Step over small objects (cones or rolled towels).- Practice walking sideways and backwards.- Use a treadmill if available, under supervision.2. Balance Exercises- Stand on one foot for 10-30 seconds; switch legs.- Walk heel-to-toe in a straight line.- Use a balance board or cushion to challenge stability.- Practice rising from a chair without using your hands.3. Strength Training Exercises- [id number]: rise from a chair repeatedly.- Wall push-ups: stand at arm's length from a wall and push.- Step-ups on a low step or stairs.- Leg lifts while seated or lying down.Consult your primary care provider (PCP) before starting these exercises, especially if you havemedical conditions or difficulty performing them Plan Of Treatment Next Appt Details Provider Name:Marbella Gaston Arredondo, 05/07/2025 03:30:00 PM, [address], [place], [address], Insurance Providers Payer Name Payer Address Payer Phone Subscriber Number Group Number Insured Name Patient Relationship to Insured Coverage Start Date Coverage End Date [facility] [address] [place] [phone] [id number] POON Self - patient is the insured Medical (General) History Medical History History ICD Code Problems: Essential hypertension Gastroesophageal reflux disease Generalized anxiety disorder Hyperlipidemia Long-term current use of drug therapy Obesity Primary insomnia Severe recurrent major depression withou t psychotic features , Major depressive disorder, recurrent Insomnia Hypertension Migraine Osteoporosis Peripheral neuropathy History of right shoulder fracture and s urgical repair Polyneuropathy, 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
--- OUTSIDE RECORDS SUMMARY | 2025-02-25 16:43 | XMS_ITS | Clinical Summary ---
Author Organization [facility] Address [address] [place] [address] Care Team Providers Care Attendant Arcade Name Role Phone Unavailable Primary Care Provider [...] Td Vaccines ( 1 - Tdap) 1969 Pneumococcal Vaccine: 50+ Ye ars (1 of 1 - PCV) 01/17/2000 Zoster Vaccines (1 of 2) 01/17/2000 Dexa Scan (General) 2015 COVID-19 Vaccine ( - 2024-2 6 season) 2024 Influenza Adult (#1) 2024 RSV Immunization or 60+ Years (1 - 1-dose 75+ series) 2025 Hepatitis A Vaccines Aged Out No long er eligible based on patient's age to complete this topic Meningococcal B Vaccine Aged Out No l onger eligible based on patient's age to complete this topic Meningococcal Vaccine Aged Out No kenneth toby eligible based on patient's age to complete this topic RSV Immunizations Under 20 Months Aged Out No longer eligible based on patient's age to complete this topic
--- OUTSIDE RECORDS SUMMARY | 2025-02-25 16:43 | XMS_ITS | Clinical Summary ---
Author Organization [facility] Address [address] [place] [address] Phone Care Team Providers Care Referral Clerk Name Role Phone Unavailable Primary Care Provider [...] 01/17/2000 OSTEOPOROSIS SCREENING 2015 INFLUENZA VACCINE (#1) 2024 04/11/2019, 2018 COVID-19 Vaccine (3 - season) 2024, 05/21/2020 RSV VACCINE (60+ or ) (1 - 1-dose 75+ series) 2025 PNEUMOCOCCAL VACCINE 50+ YEARS Completed 04/11/2019 , 01/21/2019 Insurance [facility] DUAL COMPLETE PPO DSNP [facility] [id number]
--- OUTSIDE RECORDS SUMMARY | 2025-02-25 16:44 | XMS_ITS | Clinical Summary ---
Author Organization [address] Address [address] [place] [address] Care Team Providers Care Meeting Specialist Name Role Phone Les Salinas DO Primary Care Provider [phone] Allergies Active Allergy Reactions Criticality Noted Date [...] day for 14 days 28 capsule 08/12/19 Active oxyCODONE (ROXICODONE) 5 mg immediate release [...] (two) times a day 60 capsule 08/12/19 Active atorvastatin (LIPITOR) 20 mg tabletIndications: hyperlipidemia Take 4 tablets (80 mg total) by mouth every morning 0 08/12/19 Active Active Problems Problem Noted Date Diagnosed Date S/P reverse total shoulder arthroplasty, right 0 08/11/2022 Painful orthopaedic hardware 07/26/2022 Periprosthetic fracture of shoulder 07/26/2022 Migraine without aura and wi thout status migrainosus, not intractable 11/15/2020 Assessment & Plan (02/01/2021 2:52 PM RETIREMENT PLAN SPECIALIST): Patient continues at this time on propranolol [...] for MRI brain report retrieval from [facility] where she allegedly had the MRI completed. I have also started her on propranolol 20 mg b.i.d. for migraine prophylaxis. She will follow-up in neurology clinic in 6 months for reassessment on propranolol. Breast mass 04/09/2020 Aftercare following right sh oulder joint replacement surgery 01/02/2018 Loosening of shoulder joint prosthesis 8 Overview (12/19/2017): Added automatically from request for surgery [id number] Arthritis of knee, right 11/22/2017 Overview (11/22/2017): Added automatically from request for surgery [id number] Closed fracture of right proximal humerus 2017 Overview (05/04/2017): Added automatically from request for surgery [id number] Morbid obesity with BMI of 40.0-44.9, adult 04/19 Abnormal mammogram 12/05/2016 Allergy, drug 04/28/2016 Peripheral neuropathy Assessment & Plan (02/01/2021 2:52 PM RETIREMENT PLAN SPECIALIST): Patient has history of peripheral neuropathy manifested as neuropathic pain in her feet for which he is using gabapentin with success provided through her PCP. Encounters Date Type Department Care Team Description 01/08[facility] [address] [place] [address] Floor [address] [place] [address] Erica Cortes RN 12/29/2024 [facility] [address] [place] [address] Floor 8 [place] [address] Erica Cortes RN Medical Question/Miscellaneous 12/29/2024 [facility]phone [facility] [address] [place] [address] Floor 8 [place] [address] Madhuri Adrian MD 12/26/2024 [facility]phone [facility] [address] [place] [address] Floor 6 [place] [address] Madhuri Adrian MD Patient issue/concern 12/24/2024 Telephone [facility] [address] [facility] Floor 8 [place] [address] Madhuri Adrian MD from Last 3 Months Surgical History Surgery Date Site/Laterality Comments OOPHORECTOMY [...] on file Legal Sex Female 11:43 PM RETIREMENT PLAN SPECIALIST Gender Identity Not on file Sexual Orientation [...] of 2) 01/17/2000 Well Visit 65+ 2015 Fall Risk Assessment 08/12/2023 08/11/2022 Covid-19 Vaccine (2024-2 6 season) 2024 06/11/2020, 05/21/2020 Influenza Vaccine (#1) 2024 04/11/2019, 2018 Pneumococcal vaccine 65+ Completed 04/11/2019, 07/2018 Breast Cancer Screening-Mammogram Discontinued 04/09/2020, 12/05/2016, 03/03/2014, Additional history exists Medical Devices Implanted Type Area Door Person Device Identifier Shelf Expiration Date Model / Serial / Lot Kit Screw Shoulder Reverse Torque Define - [id number] - [id number] Implanted:Qty: 1 on 05/07/2017 by Alex Redding MD at [facility] Other - see comments [employer] 11/13/2021 320-20-00 / [id number] / Screw Bone Equinoxe L34 Mm Od4.5 Mm Shoulder Kit Compression Lock Cap Reverse Red - [id number] - [id number] Implanted:Qty: 1 on 05/07/2017 by Alex Reddign MD at [facility] Screw [employer] 09/07/2021 320-20-34 / [id number] / Screw 4.5mm 38mm Bone Cmpr Lkng Cap Kit Equinoxe Shldr Grn - [id number] - [id number] Implanted:Qty: 1 on 05/07/2017 by [facility] at [facility] 12/27/2021 320-20-38 / [id number] / Cmpnt Glenoid 38mm +4mm Expand Glenosphere Lat Offset - [id number] - [id number] Implanted:Qty: 1 on 05/07/2017 by Alex Redding MD at [facility] 12/13/2021 320-02-38 / [id number] / Cmpnt Glenoid 38mm +4mm Expand Glenosphere Lat Offset - [id number] - [id number] Implanted:Qty: 1 on 05/07/2017 by Alex Redding MD at [facility] 04/12/2027 320-02-38 / [id number] / Plate Glenoid Equinoxe Standard Reverse - [id number] - [id number] Implanted:Qty: 1 on 05/07/2017 by Alex Redding MD at [facility] 03/27/2027 320-15-01 / [id number] / Tray Humeral Adapter Equinoxe +0 Mm Reverse Shoulder System - [id number] - [id number] Implanted:Qty: 1 on 05/07/2017 by Alex Redding MD at [facility] 03/26/2027 320-10-00 / [id number] / [employer] 320-38-10 Equinoxe 38mm Reverse Constrained Shoulder +0mm Liner Humeral - [id number] Implanted:Qty: 1 on 01/01/2018 by Alex Redding MD at [facility] Right: [facility] 04/18/2022 320-38-10 / / [id number] [employer] [id number] Palacos Lv+G Cement 40gm Bone Gentamicin Green - [id number] Implanted:Qty: 1 on 01/01/2018 by Alex Redding MD at [facility] [employer] [id number] / / [employer] [id number] Palacos Lv+G Cement 40gm Bone Gentamicin Green - [id number] Implanted:Qty: 1 on 01/01/2018 by Alex Redding MD at [facility] Right: Shoulder [employer] 10/16/2020 [id number] / / [id number] [employer] 320-20-00 Reverse Torque Define Shoulder Kit Screw - [id number] Implanted:Qty: 1 on 01/01/2018 by Alex Redding MD at [facility] Right: Shoulder [employer] 11/25/2022 320-20-00 / / [id number] [employer] 320-10-00 Equinoxe Reverse Shoulder +0mm Tray Humeral Adapter - [id number] Implanted:Qty: 1 on 01/01/2018 by Alex Redding MD at [facility] Right: Shoulder [employer] 11/12/2027 320-10-00 / / [id number] [employer] 300-01-09 Equinoxe 9mm Press Fit Primary Shoulder Stem Humeral - [id number] Implanted:Qty: 1 on 01/01/2018 by Alex Redding MD at [facility] Right: Shoulder [employer] 08/21/2027 300-01-09 / / [id number] Explanted Type Area Door Person Device Identifier Shelf Expiration Date Model / Serial / Lot Stem Humeral Equinoxe Od9 Mm Shoulder Press Fit Primary - [id number] - [id number] Implanted:Qty: 1 on 05/07/2017 by Alex Redding MD at [facility] Explanted:Qty: 1 on 01/01/2018 at [facility] Other - see comments [facility] 10/04/2026 300-01- / [id number] / Description:EXPLANT DISPOSED OF Liner Humeral Equinoxe +0 Mm Od38 Mm Shoulder Reverse Constrained - [id number] - [id number] Implanted:Qty: 1 on 05/07/2017 by Alex Redding MD at [facility] Explanted:Qty: 1 on 01/01/2018 at [facility] 09/27/2021 320-38-10 / [id number] / Description:EXPLANT DISPOSED OF Procedures Procedure Name Priority Date/Time Associated Diagnosis Comments DIAGNOSTIC MAMMOGRAM BILATERAL W JEFFREY Schedule Routine, Read Routine (OP Routine) 04/09/2020 1:49 PM RETIREMENT PLAN SPECIALIST Disorder of breast, unspecified Breast lump in female from Last 3 Months or Most Recently Relevant to Health Maintenance Results * Diagnostic Mammogram Bilateral W Jeffrey (04/09/2020 1:49 PM RETIREMENT PLAN SPECIALIST) Anatomical Region Laterality Modality Breast Bilateral Mammography 04/09/2020 2:31 PM RETIREMENT PLAN SPECIALIST Impressions 04/09/2020 3:59 PM RETIREMENT PLAN SPECIALIST 1. Correlating with the area of palpable [...] Kathy Baldwin M.D. Narrative 04/09/2020 3:59 PM RETIREMENT PLAN SPECIALIST EXAMINATION: BILATERAL DIGITAL DIAGNOSTIC MAMMOGRAM INCLUDING CAD [...] it. Electronically signed by: Kathy Baldwin M.D. Madhuri Adrian MD IMG MAMMO PROCEDURES Fi nal Result from Last 3 Months or Most Recently Relevant to Health Maintenance [facility] U[employer] MEDICARE ADVANTAGE [facility] MEDICARE ADVANTAGE Advance Directives For more information, please contact: [phone] * Full Code (Latest Code Status on File) Date Activated Date Inactivated Comments 01/01/2018 8:13 PM 01/02/2018 4:12 PM * Full Code Date Activated Date Inactivated Comments 05/07/2017 6:02 PM 05/08/2017 9:01 PM Care Teams Meeting Specialist Relationship Specialty Start Date End Date Les Salinas DO PCP - General Internal Medicine 05/22/17
--- OUTSIDE RECORDS SUMMARY | 2025-02-25 16:47 | XMS_ITS | Clinical Summary ---
Author Organization [facility] Address [address] [facility], [address] [address] Phone Care Team Providers Care Manager Custom Name Role Phone Rita Les Ivan SCHULTZ Primary Care Provider Allergies Active Allergy Reactions Criticality Noted Date Comments Midazolam Swelling 01/04/2018 Versed Medications ALPRAZolam (XANAX) 1 MG Tablet Take 1 mg by mouth. 2 tabs AM, 1/2 tab at noon and 1 tab PM Active POTASSIUM CHLORIDE PO Take 10 mEq by mouth daily. Active Cholecalciferol (VITAMIN D3) 1.25 MG (72886 UT) Capsule 0 Active alendronate (FOSAMAX) 70 [...] 1995 Zoster Immunization (1 of 2) 01/17/2000 Medicare Initial AWV G0438 03/19/2018 Influenza Immunization (#1) 2024 04/11/2019, 1 03/24/2018 [...] complete this topic Human Papillomavirus (HPV) Immunization (No Doses Required) Completed Meningococcal Immunization (ACWY) Aged Out No longer [...] 2:08 PM 08/29/2021 12:50 PM Care Teams Manager Custom Relationship Specialty Start Date End Date Les Salinas DO [address] [facility] [place] [place] [address] PCP - General Internal Medicine 01/03/18
--- OUTSIDE RECORDS SUMMARY | 2025-02-25 16:47 | XMS_ITS | Encounter Summary ---
Author Organization [facility] Address [address] [place] [address] Phone Care Team Providers Care Soda Tester Name Role Phone Les Salinas DO Primary Care Provider Reason for Visit * Reason Comments Medication Refill Encounter Details Date Type Department Care Team (Late st Contact Info) Description 04/16/2020 Refill [facility] - Gastroenterology [facility] [address] [place] [address] Mesha Honeycutt Magalys, PAC [address] [place] [address] Medication Refill Social History Tobacco Use Types [...] Valdez Greene CMA - 04/16/2020 3:09 PM SILK PRINTER This was a duplicate and refill already sent in PRINTER documented in this encounter Plan of Treatment Not on file documented as of this encounter Visit Diagnoses Not on filedocumented in this encounter Care Teams Soda Tester Relationship Specialty Start Date End Date Les Salinas DO [address] [facility] [address] [facility] [place] [address] PCP - General Internal Medicine 01/03/18 documented as of this encounter
--- OUTSIDE RECORDS SUMMARY | 2025-02-25 16:47 | XMS_ITS | Encounter Summary ---
Author Organization [facility] Address [address] [place] [address] Phone Care Team Providers Care Commissioned Sales Associate Name Role Phone Les Salinas DO Primary Care Provider Reason for Visit * Reason Comments Medication Refill Encounter Details Date Type Department Care Team (Late st Contact Info) Description 08/31/2020 Refill [facility] - Gastroenterology [facility] [address] [place] [address] Mesha Honeycutt Magalys, PAC [address] [place] [address] Medication Refill Social History Tobacco Use Types [...] on filedocumented in this encounter Care Teams Commissioned Sales Associate Relationship Specialty Start Date End Date Les Salinas DO [address] [place] [address] PCP - General Internal Medicine 01/03/18 documented as of this encounter
[2025-02-25 19:13] LABS: Add Urine Microscopic? YES; Appearance Urine Cloudy (Clear); Glucose Urine UA Negative (Negative); Leukocyte Esterase Ur 3+ LEU/UL (Negative); Nitrate Urine Negative (Negative); Non Pathogenic Casts 0-2; Specific Grav Ur 1.013 (1.001-1.035)
== END 2025-02-25 12:42 | disposition home or self-care (01) ==
PROVIDERS: PCP Nurse Practitioner
DX: R35.0 Frequency of micturition (principal)
CPT/HCPCS: 81001; 87086; 87186